=== PATIENT | male | born 1955 | race Caucasian/White ===

== ENCOUNTER 2017-06-28 18:21 | Emergency (ER) | payer MEDICARE, MEDICAID ==
[~2017-06-28] VITALS: Ht 177.8 cm; Wt 75.0 kg
[~2017-06-28 18:21] MED LIST: HYDR-569 PO; INDO50CA PO; OMEP-84 PO; TRAM50TA2 PO; UNABLE TO OBTAIN
[2017-06-28 19:12] VITALS: BP 155/86
[2017-06-28] MEDS ORDERED: normal saline 1000ML IV soln IVB ONE (19:50)
[2017-06-28 20:15] LABS: BASOPHILS % (AUTO) 0.7 % (0-1); EOSINOPHILS # (AUTO) 0.1 X10'3 (0-0.9); EOSINOPHILS % (AUTO) 2.4 % (0-6); HEMATOCRIT 48.9 % (42.0-52.0); HEMOGLOBIN 16.5 g/dl (14.0-17.9); LYMPHOCYTES # (AUTO) 2.1 X10'3 (1.1-4.8); LYMPHOCYTES % (AUTO) 45.4 % (21-51); MEAN CORPUSCULAR HEMOGLOBIN 34.5 PG (27.0-31.0); MEAN CORPUSCULAR HGB CONC 33.8 % (33.0-36.5); MEAN CORPUSCULAR VOLUME 102.1 FL (78-98); MEAN PLATELET VOLUME 8.1 FL (7.4-10.4); MONOCYTES # (AUTO) 0.3 X10'3 (0-0.9); MONOCYTES % (AUTO) 6.2 % (2-12); NEUTROPHILS # (AUTO) 2.1 X10'3 (1.8-7.7); NEUTROPHILS % (AUTO) 45.3 % (42-75); PLATELET COUNT 223 X10'3 (140-440); RED BLOOD COUNT 4.79 X10'6 (4.70-6.10); RED CELL DISTRIBUTION WIDTH 14.1 % (11.5-14.5); WHITE BLOOD COUNT 4.6 X10'3 (4.5-11.0)
[2017-06-28 20:19] LABS: CLARITY,URINE Clear (Clear); GLUCOSE, URINE Negative (Neg); KETONES,URINE Negative (Neg); LEUKOCYTE ESTERASE ,URINE Negative (Neg); NITRITES, URINE Negative (Neg); OCCULT BLOOD,URINE Negative (Neg); PROTEIN,URINE Negative (Neg); UROBILINOGEN,URINE 0.2 E.U/dL (0.2-1.0)
[2017-06-28 20:21] LABS: URINE AMPHETAMINE SCREEN NEGATIVE (Neg); URINE BARBITUATE SCREEN NEGATIVE (Neg); URINE BENZODIAZEPINES SCREEN NEGATIVE (Neg); URINE CANNABINOID SCREEN NEGATIVE (Neg); URINE COCAINE SCREEN NEGATIVE (Neg); URINE METHADONE SCREEN NEGATIVE (Neg); URINE OPIATE SCREEN NEGATIVE (Neg); URINE PHENCYCLIDINE SCREEN NEGATIVE (Neg)
[2017-06-28 20:26] LABS: COLOR,URINE STRAW (Yellow); UA COLLECTION TYPE CLN CATCH MIDSTREAM
[2017-06-28 20:26] LABS: PROTHROMBIN TIME 10.8 SECONDS (9.0-12.0)
[2017-06-28 20:30] LABS: ALANINE AMINOTRANSFERASE 34 U/L (12-78); ALBUMIN/GLOBULIN RATIO 1.1 (1.1-1.5); ALKALINE PHOSPHATASE 62 IU/L (46-116); ANION GAP 15 (8-16); ASPARTATE AMINO TRANSFERASE 31 U/L (10-37); BILIRUBIN,TOTAL 0.4 MG/DL (0.1-1.0); BLOOD UREA NITROGEN 8 MG/DL (7-18); BUN/CREATININE RATIO 12.1 (5.4-32.0); CALCIUM 8.5 MG/DL (8.5-10.1); CHLORIDE 106 MMOL/L (99-107); CREATININE 0.66 MG/DL (0.60-1.10); GLUCOSE 99 MG/DL (70-104); POTASSIUM 3.9 MMOL/L (3.5-5.1); SODIUM 147 MMOL/L (135-145); TOTAL CARBON DIOXIDE 26.1 MMOL/L (24-32); TOTAL PROTEIN 7.5 G/DL (6.4-8.2); eGFR > 90 ML/MIN
[2017-06-28 20:40] LABS: ETHANOL 0.298 GM/DL (0.0-0.010)
== END 2017-06-28 20:54 | disposition left against medical advice (07) ==
LOC: ER 18:22
DX: R51 Headache (principal); F10.129 Alcohol abuse with intoxication, unspecified; R55 Syncope and collapse; R26.89 Other abnormalities of gait and mobility; I10 Essential (primary) hypertension; G89.29 Other chronic pain; Z98.890 Other specified postprocedural states; Z88.0 Allergy status to penicillin; Z79.899 Other long term (current) drug therapy; W01.198A Fall on same level from slipping, tripping and stumbling with subsequent striking against other object, initial encounter; Y93.89 Activity, other specified; Y92.89 Other specified places as the place of occurrence of the external cause; Y99.9 Unspecified external cause status; Y90.9 Presence of alcohol in blood, level not specified
CPT/HCPCS: 36415; 70450; 71010; 80053; 80305; 80320; 81003; 82140; 84439; 84443; 84484; 85025; 85610; 93005; 96360; 99285; J7030

== ENCOUNTER 2017-09-13 10:32 | Emergency (ER) | payer MEDICARE, MEDICAID ==
[~2017-09-13] VITALS: Ht 177.8 cm; Wt 78.8 kg
[2017-09-13 10:42] VITALS: BP 152/92
[2017-09-13] MEDS ORDERED: HYDROcodone/acetaminophen 10/325mg tab PO ONE (11:30)
[2017-09-13] MEDS ORDERED: HYDR-3965 PO (12:14)
== END 2017-09-13 12:40 | disposition home or self-care (01) ==
LOC: ER 10:32
DX: S82.892A Other fracture of left lower leg, initial encounter for closed fracture (principal); I10 Essential (primary) hypertension; G89.29 Other chronic pain; Z88.0 Allergy status to penicillin; Z79.899 Other long term (current) drug therapy; X58.XXXA Exposure to other specified factors, initial encounter; Y93.89 Activity, other specified; Y92.89 Other specified places as the place of occurrence of the external cause; Y99.8 Other external cause status
CPT/HCPCS: 29515; 73610; 99284

== ENCOUNTER 2017-10-07 15:54 | Inpatient (IN) | payer MEDICARE, MEDICAID ==
[~2017-10-07] VITALS: Ht 177.8 cm; Wt 72.7 kg
[~2017-10-07 15:54] MED LIST changes: +HYDR-3965 PO
[2017-10-07] MEDS ORDERED: LORazepam 2 mg/ml vial IV ONE ×2 (16:00→16:50)
[2017-10-07] MEDS ORDERED: normal saline 1000ML IV soln IVB ONE (16:00)
[2017-10-07 16:10] LABS: BASOPHILS % (AUTO) 0.2 % (0-1); EOSINOPHILS # (AUTO) 0.1 X10'3 (0-0.9); EOSINOPHILS % (AUTO) 1.3 % (0-6); HEMATOCRIT 48.1 % (42.0-52.0); HEMOGLOBIN 16.4 g/dl (14.0-17.9); LYMPHOCYTES # (AUTO) 1.5 X10'3 (1.1-4.8); LYMPHOCYTES % (AUTO) 25.8 % (21-51); MEAN CORPUSCULAR HEMOGLOBIN 34.5 PG (27.0-31.0); MEAN CORPUSCULAR HGB CONC 34.1 % (33.0-36.5); MEAN CORPUSCULAR VOLUME 101.2 FL (78-98); MEAN PLATELET VOLUME 8.4 FL (7.4-10.4); MONOCYTES # (AUTO) 0.4 X10'3 (0-0.9); MONOCYTES % (AUTO) 6.5 % (2-12); NEUTROPHILS # (AUTO) 3.8 X10'3 (1.8-7.7); NEUTROPHILS % (AUTO) 66.2 % (42-75); PLATELET COUNT 133 X10'3 (140-440); RED BLOOD COUNT 4.76 X10'6 (4.70-6.10); RED CELL DISTRIBUTION WIDTH 14.8 % (11.5-14.5); WHITE BLOOD COUNT 5.7 X10'3 (4.5-11.0)
[2017-10-07 16:24] LABS: ALANINE AMINOTRANSFERASE 83 U/L (12-78); ALBUMIN 4.4 G/DL (3.4-5.0); ALBUMIN/GLOBULIN RATIO 1.2 (1.1-1.5); ALKALINE PHOSPHATASE 98 IU/L (46-116); ANION GAP 20 (8-16); ASPARTATE AMINO TRANSFERASE 124 U/L (10-37); BILIRUBIN,TOTAL 1.1 MG/DL (0.1-1.0); BLOOD UREA NITROGEN 10 MG/DL (7-18); BUN/CREATININE RATIO 8.8 (5.4-32.0); CALCIUM 8.8 MG/DL (8.5-10.1); CHLORIDE 101 MMOL/L (99-107); CREATININE 1.13 MG/DL (0.60-1.10); GLUCOSE 196 MG/DL (70-104); POTASSIUM 3.6 MMOL/L (3.5-5.1); SODIUM 140 MMOL/L (135-145); TOTAL CARBON DIOXIDE 18.7 MMOL/L (24-32); TOTAL PROTEIN 8.1 G/DL (6.4-8.2); eGFR 66 ML/MIN
[2017-10-07 16:25] LABS: ETHANOL < 0.010 GM/DL (0.0-0.010)
[2017-10-07 16:54] LABS: INR 1.1 INR; PARTIAL THROMBOPLASTIN TIME 21 SECONDS (22-32); PROTHROMBIN TIME 10.6 SECONDS (9.0-12.0)
[2017-10-07] MEDS ORDERED: potassium Cl 40MEQ/NS 500ml 500 ML IV PRN ×2 (17:10)
[2017-10-07] MEDS ORDERED: magnesium 2GM in 50ml NS 50 ML IV PRN (17:10)
[2017-10-07] MEDS: K and/or MAG REPLACEMENT MC SCH (17:10)
[2017-10-07] MEDS ORDERED: magnesium hydroxide 30ml (MOM) UD suspension PO PRN (17:10)
[2017-10-07] MEDS ORDERED: dextrose 50%-water 50ml dispensing syringe IV PRN (17:10)
[2017-10-07] MEDS ORDERED: mag hydrox/Alum hydrox/simeth 30ml oral suspension PO PRN (17:10)
[2017-10-07] MEDS ORDERED: haloperidol lactate 5mg/ml inj IM PRN (17:10)
[2017-10-07] MEDS ORDERED: folic acid inj. 2 MG, thiamine inj. 100 MG, MVI, adult No.4 with vit. K 10 ML in dextro... IV SCH ×4 (17:10)
[2017-10-07] MEDS ORDERED: haloperidol 5mg tablet PO PRN (17:10)
[2017-10-07] MEDS ORDERED: thiamine 100mg/ml 2ml inj. IV ONE (17:10)
[2017-10-07] MEDS ORDERED: magnesium 4gm in 100ml NS 100 ML IV PRN (17:10)
[2017-10-07] MEDS ORDERED: potassium Cl 20 mEq SR tablet PO PRN (17:10)
[2017-10-07 17:37] LABS: CLARITY,URINE CLEAR (Clear); COLOR,URINE YELLOW (Yellow); GLUCOSE, URINE NEGATIVE (Neg); KETONES,URINE 40 mg/dl (Neg); LEUKOCYTE ESTERASE ,URINE NEGATIVE (Neg); NITRITES, URINE NEGATIVE (Neg); OCCULT BLOOD,URINE NEGATIVE (Neg); PROTEIN,URINE 30 mg/dl (Neg)
[2017-10-07 17:43] LABS: URINE AMPHETAMINE SCREEN NEGATIVE (Neg); URINE BARBITUATE SCREEN NEGATIVE (Neg); URINE BENZODIAZEPINES SCREEN NEGATIVE (Neg); URINE CANNABINOID SCREEN NEGATIVE (Neg); URINE COCAINE SCREEN NEGATIVE (Neg); URINE METHADONE SCREEN NEGATIVE (Neg); URINE OPIATE SCREEN NEGATIVE (Neg); URINE PHENCYCLIDINE SCREEN NEGATIVE (Neg)
[2017-10-07 17:48] LABS: UA COLLECTION TYPE CLN CATCH MIDSTREAM
[2017-10-07 17:51] LABS: AMORPHOUS PHOSPHATES 2+; BACTERIA,URINE NONE SEEN /HPF (Neg); RBC,URINE NONE SEEN /HPF (0-2); SQUAMOUS EPITHELIAL CELL,UR NONE SEEN /LPF (FEW); WBC,URINE 0-4 /HPF (0-4)
[2017-10-07] MEDS: normal saline 1000ml 1,000 ML IV SCH ×2 (17:54→21:18)
[2017-10-07] MEDS ORDERED: LEVE500T PO (19:11)
[2017-10-07] MEDS ORDERED: SYN0.088T PO (19:11)
[2017-10-07] MEDS ORDERED: HYDR-3973 (19:13)
[2017-10-07] MEDS ORDERED: HYDR-3964 (19:13)
[2017-10-07] MEDS ORDERED: NAPR-996 (19:13)
[2017-10-07 20:25] VITALS: BP 152/98
[2017-10-07] MEDS ORDERED: HYDROcodone/acetaminophen 5mg/325mg tablet PO PRN (20:45)
[2017-10-07] MEDS ORDERED: levetiracetam 250mg tablet PO ONE (21:00)
[2017-10-07 22:00] VITALS: BP 151/90
[2017-10-08 06:00] VITALS: BP 128/81
[2017-10-08 07:26] LABS: BASOPHILS % (AUTO) 0.2 % (0-1); EOSINOPHILS % (AUTO) 0.2 % (0-6); HEMATOCRIT 42.3 % (42.0-52.0); HEMOGLOBIN 14.7 g/dl (14.0-17.9); MEAN CORPUSCULAR HGB CONC 34.7 % (33.0-36.5); MEAN CORPUSCULAR VOLUME 100.9 FL (78-98); MEAN PLATELET VOLUME 8.8 FL (7.4-10.4); MONOCYTES # (AUTO) 0.4 X10'3 (0-0.9); MONOCYTES % (AUTO) 3.4 % (2-12); NEUTROPHILS # (AUTO) 10.7 X10'3 (1.8-7.7); NEUTROPHILS % (AUTO) 88.2 % (42-75); PLATELET COUNT 107 X10'3 (140-440); RED BLOOD COUNT 4.19 X10'6 (4.70-6.10); RED CELL DISTRIBUTION WIDTH 14.4 % (11.5-14.5); WHITE BLOOD COUNT 12.2 X10'3 (4.5-11.0)
[2017-10-08 07:28] LABS: ALANINE AMINOTRANSFERASE 61 U/L (12-78); ALBUMIN 3.4 G/DL (3.4-5.0); ALKALINE PHOSPHATASE 74 IU/L (46-116); ANION GAP 13 (8-16); ASPARTATE AMINO TRANSFERASE 64 U/L (10-37); BILIRUBIN,TOTAL 1.3 MG/DL (0.1-1.0); BLOOD UREA NITROGEN 9 MG/DL (7-18); CALCIUM 8.1 MG/DL (8.5-10.1); CHLORIDE 102 MMOL/L (99-107); CREATININE 0.75 MG/DL (0.60-1.10); GLUCOSE 99 MG/DL (70-104); MAGNESIUM 1.7 MG/DL (1.5-2.4); POTASSIUM 3.8 MMOL/L (3.5-5.1); SODIUM 140 MMOL/L (135-145); TOTAL CARBON DIOXIDE 25.2 MMOL/L (24-32); TOTAL PROTEIN 6.7 G/DL (6.4-8.2); eGFR > 90 ML/MIN
[2017-10-08] MEDS: normal saline 1000ml 1,000 ML IV SCH ×2 (07:37→23:09)
[2017-10-08] MEDS: K and/or MAG REPLACEMENT MC SCH (08:00)
[2017-10-08] MEDS: thiamine 100mg tablet PO SCH (08:55)
[2017-10-08] MEDS: folic acid inj. 2 MG, MVI, adult No.4 with vit. K 10 ML in dextrose 5% water 500ml 500 ML IV SCH ×3 (08:55)
[2017-10-08] MEDS: levetiracetam 250mg tablet PO SCH ×2 (08:55→20:05)
[2017-10-08] MEDS: enoxaparin 40mg/0.4ml syringe SQ SCH (08:56)
[2017-10-08 10:00] VITALS: BP 153/91
[2017-10-08] MEDS ORDERED: pneumococcal 23-VAL P-sac vacc 25 mcg/0.5ml vial IMVAC ONE (10:00)
[2017-10-08] MEDS: LORazepam 2 mg/ml vial IV PRN ×5 (11:25→22:59)
[2017-10-08 18:00] VITALS: BP 127/86
[2017-10-08 22:00] VITALS: BP 133/87
[2017-10-09] MEDS: normal saline 1000ml 1,000 ML IV SCH ×3 (00:43→23:27)
[2017-10-09] MEDS: LORazepam 2 mg/ml vial IV PRN ×8 (02:22→20:59)
[2017-10-09 05:27] LABS: BASOPHILS % (AUTO) 0.6 % (0-1); EOSINOPHILS # (AUTO) 0.1 X10'3 (0-0.9); EOSINOPHILS % (AUTO) 1.5 % (0-6); HEMATOCRIT 44.3 % (42.0-52.0); HEMOGLOBIN 15.2 g/dl (14.0-17.9); LYMPHOCYTES # (AUTO) 1.4 X10'3 (1.1-4.8); LYMPHOCYTES % (AUTO) 20.3 % (21-51); MEAN CORPUSCULAR HEMOGLOBIN 34.7 PG (27.0-31.0); MEAN CORPUSCULAR HGB CONC 34.4 % (33.0-36.5); MEAN CORPUSCULAR VOLUME 100.9 FL (78-98); MEAN PLATELET VOLUME 8.6 FL (7.4-10.4); MONOCYTES # (AUTO) 1.1 X10'3 (0-0.9); MONOCYTES % (AUTO) 16.5 % (2-12); NEUTROPHILS # (AUTO) 4.2 X10'3 (1.8-7.7); NEUTROPHILS % (AUTO) 61.1 % (42-75); PLATELET COUNT 101 X10'3 (140-440); RED BLOOD COUNT 4.39 X10'6 (4.70-6.10); RED CELL DISTRIBUTION WIDTH 14.7 % (11.5-14.5); WHITE BLOOD COUNT 6.8 X10'3 (4.5-11.0)
[2017-10-09 06:19] LABS: ALANINE AMINOTRANSFERASE 97 U/L (12-78); ALBUMIN 3.4 G/DL (3.4-5.0); ALBUMIN/GLOBULIN RATIO 0.9 (1.1-1.5); ALKALINE PHOSPHATASE 76 IU/L (46-116); ANION GAP 12 (8-16); ASPARTATE AMINO TRANSFERASE 127 U/L (10-37); BILIRUBIN,TOTAL 1.4 MG/DL (0.1-1.0); BLOOD UREA NITROGEN 9 MG/DL (7-18); BUN/CREATININE RATIO 10.1 (5.4-32.0); CHLORIDE 106 MMOL/L (99-107); CREATININE 0.89 MG/DL (0.60-1.10); GLUCOSE 105 MG/DL (70-104); MAGNESIUM 1.4 MG/DL (1.5-2.4); POTASSIUM 3.7 MMOL/L (3.5-5.1); SODIUM 143 MMOL/L (135-145); TOTAL CARBON DIOXIDE 24.9 MMOL/L (24-32); TOTAL PROTEIN 7.2 G/DL (6.4-8.2); eGFR 87 ML/MIN
[2017-10-09] MEDS: K and/or MAG REPLACEMENT MC SCH (07:09)
[2017-10-09] MEDS: enoxaparin 40mg/0.4ml syringe SQ SCH (07:17)
[2017-10-09] MEDS: folic acid inj. 2 MG, MVI, adult No.4 with vit. K 10 ML in dextrose 5% water 500ml 500 ML IV SCH ×3 (07:17)
[2017-10-09] MEDS: levetiracetam 250mg tablet PO SCH ×2 (07:17→20:59)
[2017-10-09] MEDS: magnesium Cl slow-release 64mg tablet PO PRN ×2 (07:19→23:27)
[2017-10-09] MEDS: thiamine 100mg tablet PO SCH (07:19)
[2017-10-09 10:00] VITALS: BP 150/99
[2017-10-09] MEDS: haloperidol lactate 5mg/ml inj IM PRN ×2 (14:48→17:38)
[2017-10-09] MEDS ORDERED: LORazepam 2 mg/ml vial IV PRN (17:10)
[2017-10-09] MEDS ORDERED: LORazepam 1 MG tablet PO PRN (17:10)
[2017-10-09 18:00] VITALS: BP 128/84
[2017-10-09 22:00] VITALS: BP 128/43
[2017-10-10] MEDS: haloperidol lactate 5mg/ml inj IM PRN ×2 (03:06→05:48)
[2017-10-10 05:53] LABS: BASOPHILS % (AUTO) 0.6 % (0-1); EOSINOPHILS # (AUTO) 0.1 X10'3 (0-0.9); EOSINOPHILS % (AUTO) 2.2 % (0-6); HEMATOCRIT 40.9 % (42.0-52.0); HEMOGLOBIN 14.5 g/dl (14.0-17.9); LYMPHOCYTES # (AUTO) 0.8 X10'3 (1.1-4.8); LYMPHOCYTES % (AUTO) 16.3 % (21-51); MEAN CORPUSCULAR HEMOGLOBIN 35.2 PG (27.0-31.0); MEAN CORPUSCULAR HGB CONC 35.5 % (33.0-36.5); MEAN CORPUSCULAR VOLUME 99.1 FL (78-98); MEAN PLATELET VOLUME 8.4 FL (7.4-10.4); MONOCYTES # (AUTO) 0.5 X10'3 (0-0.9); MONOCYTES % (AUTO) 9.7 % (2-12); NEUTROPHILS # (AUTO) 3.4 X10'3 (1.8-7.7); NEUTROPHILS % (AUTO) 71.2 % (42-75); PLATELET COUNT 96 X10'3 (140-440); RED BLOOD COUNT 4.13 X10'6 (4.70-6.10); RED CELL DISTRIBUTION WIDTH 14.3 % (11.5-14.5); WHITE BLOOD COUNT 4.7 X10'3 (4.5-11.0)
[2017-10-10 06:00] VITALS: BP 130/89
[2017-10-10 06:28] LABS: ALANINE AMINOTRANSFERASE 100 U/L (12-78); ALBUMIN 3.2 G/DL (3.4-5.0); ALBUMIN/GLOBULIN RATIO 0.9 (1.1-1.5); ALKALINE PHOSPHATASE 71 IU/L (46-116); ANION GAP 10 (8-16); ASPARTATE AMINO TRANSFERASE 120 U/L (10-37); BILIRUBIN,TOTAL 1.2 MG/DL (0.1-1.0); BLOOD UREA NITROGEN 7 MG/DL (7-18); CALCIUM 8.5 MG/DL (8.5-10.1); CHLORIDE 105 MMOL/L (99-107); GLUCOSE 96 MG/DL (70-104); MAGNESIUM 1.3 MG/DL (1.5-2.4); SODIUM 142 MMOL/L (135-145); TOTAL CARBON DIOXIDE 27.1 MMOL/L (24-32); TOTAL PROTEIN 6.8 G/DL (6.4-8.2); eGFR > 90 ML/MIN
[2017-10-10] MEDS: levetiracetam 250mg tablet PO SCH ×2 (08:09→20:26)
[2017-10-10] MEDS: thiamine 100mg tablet PO SCH (08:09)
[2017-10-10] MEDS: folic acid inj. 2 MG, MVI, adult No.4 with vit. K 10 ML in dextrose 5% water 500ml 500 ML IV SCH ×3 (08:09)
[2017-10-10] MEDS: K and/or MAG REPLACEMENT MC SCH (08:10)
[2017-10-10] MEDS: potassium Cl 20 mEq SR tablet PO PRN ×2 (08:10→13:21)
[2017-10-10 10:00] VITALS: BP 124/85
[2017-10-10] MEDS: LORazepam 2 mg/ml vial IV PRN ×2 (11:47→17:34)
[2017-10-10] MEDS: normal saline 1000ml 1,000 ML IV SCH (14:53)
[2017-10-10] MEDS ORDERED: magnesium 2GM in 50ml NS 50 ML IV PRN (17:15)
[2017-10-10] MEDS ORDERED: potassium Cl 20 mEq SR tablet PO PRN ×2 (17:15)
[2017-10-10] MEDS ORDERED: magnesium Cl slow-release 64mg tablet PO PRN (17:15)
[2017-10-10] MEDS ORDERED: magnesium 4gm in 100ml NS 100 ML IV PRN (17:15)
[2017-10-10] MEDS ORDERED: potassium Cl 40MEQ/NS 500ml 500 ML IV PRN ×2 (17:15)
[2017-10-10 18:00] VITALS: BP 129/90
[2017-10-10 22:00] VITALS: BP 142/95
[2017-10-11] MEDS: normal saline 1000ml 1,000 ML IV SCH ×3 (01:10→21:09)
[2017-10-11] MEDS: haloperidol lactate 5mg/ml inj IM PRN (03:31)
[2017-10-11 06:15] LABS: ALANINE AMINOTRANSFERASE 84 U/L (12-78); ALBUMIN 3.1 G/DL (3.4-5.0); ALBUMIN/GLOBULIN RATIO 0.8 (1.1-1.5); ALKALINE PHOSPHATASE 72 IU/L (46-116); ANION GAP 11 (8-16); ASPARTATE AMINO TRANSFERASE 74 U/L (10-37); BILIRUBIN,TOTAL 1.4 MG/DL (0.1-1.0); BLOOD UREA NITROGEN 7 MG/DL (7-18); BUN/CREATININE RATIO 9.9 (5.4-32.0); CALCIUM 8.4 MG/DL (8.5-10.1); CHLORIDE 105 MMOL/L (99-107); CREATININE 0.71 MG/DL (0.60-1.10); GLUCOSE 95 MG/DL (70-104); MAGNESIUM 1.1 MG/DL (1.5-2.4); POTASSIUM 3.6 MMOL/L (3.5-5.1); SODIUM 139 MMOL/L (135-145); TOTAL CARBON DIOXIDE 22.8 MMOL/L (24-32); TOTAL PROTEIN 6.8 G/DL (6.4-8.2); eGFR > 90 ML/MIN
[2017-10-11 06:22] LABS: HEMOGLOBIN 15.2 g/dl (14.0-17.9); MEAN CORPUSCULAR HEMOGLOBIN 35.1 PG (27.0-31.0); MEAN CORPUSCULAR HGB CONC 35.4 % (33.0-36.5); MEAN CORPUSCULAR VOLUME 99.1 FL (78-98); PLATELET COUNT 106 X10'3 (140-440); RED BLOOD COUNT 4.34 X10'6 (4.70-6.10); WHITE BLOOD COUNT 6.7 X10'3 (4.5-11.0)
[2017-10-11 06:23] LABS: BASOPHILS % (AUTO) 0.1 % (0-1); EOSINOPHILS # (AUTO) 0.1 X10'3 (0-0.9); EOSINOPHILS % (AUTO) 1.3 % (0-6); LYMPHOCYTES % (AUTO) 15.3 % (21-51); MEAN PLATELET VOLUME 9.1 FL (7.4-10.4); MONOCYTES # (AUTO) 0.7 X10'3 (0-0.9); MONOCYTES % (AUTO) 10.8 % (2-12); NEUTROPHILS # (AUTO) 4.9 X10'3 (1.8-7.7); NEUTROPHILS % (AUTO) 72.5 % (42-75)
[2017-10-11] MEDS: thiamine 100mg tablet PO SCH (07:11)
[2017-10-11] MEDS: levetiracetam 250mg tablet PO SCH ×2 (07:11→21:08)
[2017-10-11] MEDS: K and/or MAG REPLACEMENT MC SCH (07:11)
[2017-10-11] MEDS: folic acid inj. 2 MG, MVI, adult No.4 with vit. K 10 ML in dextrose 5% water 500ml 500 ML IV SCH ×3 (07:11)
[2017-10-11 10:00] VITALS: BP 110/76
[2017-10-11] MEDS: LORazepam 2 mg/ml vial IV PRN ×3 (15:11→23:04)
[2017-10-11] MEDS: ondansetron/PF 4mg/2ml inj IV PRN (16:37)
[2017-10-11] MEDS ORDERED: hydrALAZINE 20mg/ml inj. IV PRN (16:55)
[2017-10-11] MEDS ORDERED: acetaminophen 120MG suppository, rectal RC ONE (16:55)
[2017-10-11] MEDS ORDERED: LORazepam 1 MG tablet PO PRN (17:10)
[2017-10-11] MEDS ORDERED: acetaminophen 650mg rectal suppository RC ONE (17:10)
[2017-10-11] MEDS ORDERED: LORazepam 2 mg/ml vial IV PRN (17:10)
[2017-10-11 17:23] LABS: COLOR,URINE YELLOW (Yellow); GLUCOSE, URINE NEGATIVE (Neg); KETONES,URINE NEGATIVE (Neg); LEUKOCYTE ESTERASE ,URINE SMALL (Neg); NITRITES, URINE NEGATIVE (Neg); OCCULT BLOOD,URINE LARGE (Neg); PROTEIN,URINE TRACE mg/dl (Neg)
[2017-10-11 17:24] LABS: UA COLLECTION TYPE NON-SPECIFIED
[2017-10-11 17:45] LABS: MUCUS STRANDS FEW /LPF (Neg); RBC,URINE 50-100 /HPF (0-2); SQUAMOUS EPITHELIAL CELL,UR FEW /LPF (FEW)
[2017-10-11 17:46] LABS: BACTERIA,URINE FEW /HPF (Neg)
[2017-10-11 17:49] LABS: CLARITY,URINE SLIGHTLY CLOUDY (Clear)
[2017-10-11 18:00] VITALS: BP 159/108
[2017-10-11] MEDS ORDERED: levoFLOXACIN-Levaquin 500mg/D5 100 ML IV SCH (20:00)
[2017-10-11 22:00] VITALS: BP 133/91
[2017-10-12] MEDS: LORazepam 2 mg/ml vial IV PRN ×4 (05:16→20:04)
[2017-10-12 06:00] VITALS: BP 121/82
[2017-10-12 06:33] LABS: BASOPHILS % (AUTO) 0.3 % (0-1); EOSINOPHILS # (AUTO) 0.1 X10'3 (0-0.9); EOSINOPHILS % (AUTO) 0.8 % (0-6); HEMATOCRIT 42.3 % (42.0-52.0); LYMPHOCYTES # (AUTO) 1.3 X10'3 (1.1-4.8); LYMPHOCYTES % (AUTO) 15.5 % (21-51); MEAN CORPUSCULAR HGB CONC 35.5 % (33.0-36.5); MEAN CORPUSCULAR VOLUME 98.6 FL (78-98); MONOCYTES # (AUTO) 1.1 X10'3 (0-0.9); MONOCYTES % (AUTO) 12.8 % (2-12); NEUTROPHILS # (AUTO) 5.9 X10'3 (1.8-7.7); NEUTROPHILS % (AUTO) 70.6 % (42-75); PLATELET COUNT 109 X10'3 (140-440); RED BLOOD COUNT 4.29 X10'6 (4.70-6.10); RED CELL DISTRIBUTION WIDTH 14.1 % (11.5-14.5); WHITE BLOOD COUNT 8.4 X10'3 (4.5-11.0)
[2017-10-12 06:54] LABS: ALANINE AMINOTRANSFERASE 68 U/L (12-78); ALBUMIN/GLOBULIN RATIO 0.8 (1.1-1.5); ALKALINE PHOSPHATASE 73 IU/L (46-116); ANION GAP 13 (8-16); ASPARTATE AMINO TRANSFERASE 55 U/L (10-37); BILIRUBIN,TOTAL 1.5 MG/DL (0.1-1.0); BLOOD UREA NITROGEN 10 MG/DL (7-18); BUN/CREATININE RATIO 12.3 (5.4-32.0); CALCIUM 8.3 MG/DL (8.5-10.1); CHLORIDE 101 MMOL/L (99-107); CREATININE 0.81 MG/DL (0.60-1.10); GLUCOSE 89 MG/DL (70-104); MAGNESIUM 1.2 MG/DL (1.5-2.4); SODIUM 136 MMOL/L (135-145); TOTAL CARBON DIOXIDE 22.1 MMOL/L (24-32); TOTAL PROTEIN 6.9 G/DL (6.4-8.2); eGFR > 90 ML/MIN
[2017-10-12] MEDS: K and/or MAG REPLACEMENT MC SCH (07:20)
[2017-10-12] MEDS: thiamine 100mg tablet PO SCH (07:26)
[2017-10-12] MEDS: levetiracetam 250mg tablet PO SCH ×2 (07:26→20:04)
[2017-10-12] MEDS ORDERED: magnesium 4gm in 100ml NS 100 ML IV ONE (08:15)
[2017-10-12 10:00] VITALS: BP 114/74
[2017-10-12] MEDS: folic acid inj. 2 MG, MVI, adult No.4 with vit. K 10 ML in dextrose 5% water 500ml 500 ML IV SCH ×3 (10:44)
[2017-10-12] MEDS ORDERED: iohexol 300mg/ml 100ml inj. ONE (12:52)
[2017-10-12] MEDS: acetaminophen 325mg tablet PO PRN (16:28)
[2017-10-12] MEDS: levoFLOXACIN 500mg tablet PO SCH (16:43)
[2017-10-12] MEDS: normal saline 1000ml 1,000 ML IV SCH ×2 (17:09→20:05)
[2017-10-12 18:00] VITALS: BP 126/80
[2017-10-12 22:00] VITALS: BP 141/88
[2017-10-13] MEDS: normal saline 1000ml 1,000 ML IV SCH ×3 (03:09→13:09)
[2017-10-13] MEDS: LORazepam 2 mg/ml vial IV PRN ×4 (05:11→23:22)
[2017-10-13] MEDS: acetaminophen 325mg tablet PO PRN ×2 (05:12→21:32)
[2017-10-13 06:00] VITALS: BP 157/83
[2017-10-13 06:57] LABS: MAGNESIUM 1.5 MG/DL (1.5-2.4); POTASSIUM 3.6 MMOL/L (3.5-5.1)
[2017-10-13] MEDS: thiamine 100mg tablet PO SCH (07:47)
[2017-10-13] MEDS: levetiracetam 250mg tablet PO SCH ×2 (07:47→21:10)
[2017-10-13] MEDS: folic acid inj. 2 MG, MVI, adult No.4 with vit. K 10 ML in dextrose 5% water 500ml 500 ML IV SCH ×3 (07:47)
[2017-10-13] MEDS: K and/or MAG REPLACEMENT MC SCH (08:00)
[2017-10-13] MEDS ORDERED: magnesium 2GM in 50ml NS 50 ML IV ONE (09:00)
[2017-10-13 10:00] VITALS: BP 124/73
[2017-10-13] MEDS: levoFLOXACIN 500mg tablet PO SCH (11:00)
[2017-10-13 11:08] LABS: BASOPHILS % (AUTO) 0.2 % (0-1); EOSINOPHILS % (AUTO) 0.6 % (0-6); HEMATOCRIT 39.9 % (42.0-52.0); LYMPHOCYTES # (AUTO) 1.2 X10'3 (1.1-4.8); LYMPHOCYTES % (AUTO) 15.2 % (21-51); MEAN CORPUSCULAR HEMOGLOBIN 34.9 PG (27.0-31.0); MEAN CORPUSCULAR HGB CONC 35.2 % (33.0-36.5); MEAN CORPUSCULAR VOLUME 99.2 FL (78-98); MEAN PLATELET VOLUME 9.4 FL (7.4-10.4); MONOCYTES # (AUTO) 1.3 X10'3 (0-0.9); MONOCYTES % (AUTO) 16.1 % (2-12); NEUTROPHILS # (AUTO) 5.5 X10'3 (1.8-7.7); NEUTROPHILS % (AUTO) 67.9 % (42-75); PLATELET COUNT 109 X10'3 (140-440); RED BLOOD COUNT 4.02 X10'6 (4.70-6.10); RED CELL DISTRIBUTION WIDTH 14.1 % (11.5-14.5); WHITE BLOOD COUNT 8.2 X10'3 (4.5-11.0)
[2017-10-13 17:23] LABS: CLARITY,URINE SLIGHTLY CLOUDY (Clear); COLOR,URINE YELLOW (Yellow); GLUCOSE, URINE NEGATIVE (Neg); KETONES,URINE TRACE mg/dl (Neg); LEUKOCYTE ESTERASE ,URINE NEGATIVE (Neg); NITRITES, URINE NEGATIVE (Neg); OCCULT BLOOD,URINE TRACE-INTACT (Neg); PH,URINE 5.5 (4.8-8.0); PROTEIN,URINE NEGATIVE (Neg)
[2017-10-13 17:29] LABS: UA COLLECTION TYPE NON-SPECIFIED
[2017-10-13 17:30] LABS: BACTERIA,URINE 1+ /HPF (Neg); MUCUS STRANDS MODERATE /LPF (Neg); RBC,URINE 0-2 /HPF (0-2); SQUAMOUS EPITHELIAL CELL,UR FEW /LPF (FEW); WBC,URINE 20-30 /HPF (0-4)
[2017-10-13 18:00] VITALS: BP_SYST 124; BP_SYST 139; BP_DIAS 73; BP_DIAS 78
[2017-10-13 22:00] VITALS: BP 137/94
[2017-10-13] MEDS ORDERED: LORazepam 2 mg/ml vial IV PRN (22:00)
[2017-10-14] MEDS: ondansetron/PF 4mg/2ml inj IV PRN (00:30)
[2017-10-14] MEDS: normal saline 1000ml 1,000 ML IV SCH ×3 (00:32→22:05)
[2017-10-14] MEDS: LORazepam 2 mg/ml vial IV PRN ×3 (02:12→13:50)
[2017-10-14 06:44] LABS: ALANINE AMINOTRANSFERASE 39 U/L (12-78); ALBUMIN 2.6 G/DL (3.4-5.0); ALBUMIN/GLOBULIN RATIO 0.8 (1.1-1.5); ALKALINE PHOSPHATASE 64 IU/L (46-116); ANION GAP 10 (8-16); ASPARTATE AMINO TRANSFERASE 21 U/L (10-37); BILIRUBIN,TOTAL 1.1 MG/DL (0.1-1.0); BLOOD UREA NITROGEN 10 MG/DL (7-18); BUN/CREATININE RATIO 13.3 (5.4-32.0); CALCIUM 8.2 MG/DL (8.5-10.1); CHLORIDE 99 MMOL/L (99-107); CREATININE 0.75 MG/DL (0.60-1.10); GLUCOSE 105 MG/DL (70-104); MAGNESIUM 1.3 MG/DL (1.5-2.4); POTASSIUM 3.8 MMOL/L (3.5-5.1); SODIUM 133 MMOL/L (135-145); TOTAL CARBON DIOXIDE 23.8 MMOL/L (24-32); eGFR > 90 ML/MIN
[2017-10-14 07:00] VITALS: BP 139/86
[2017-10-14] MEDS: K and/or MAG REPLACEMENT MC SCH (08:00)
[2017-10-14] MEDS: levetiracetam 250mg tablet PO SCH ×2 (09:21→19:16)
[2017-10-14] MEDS: thiamine 100mg tablet PO SCH (09:22)
[2017-10-14] MEDS: folic acid 1mg tablet PO SCH (09:22)
[2017-10-14] MEDS: multivitamins, therapeutics tablet PO SCH (09:22)
[2017-10-14] MEDS ORDERED: potassium Cl 20 mEq SR tablet PO PRN ×2 (09:45)
[2017-10-14] MEDS ORDERED: magnesium 4gm in 100ml NS 100 ML IV PRN (09:45)
[2017-10-14] MEDS ORDERED: potassium Cl 40MEQ/NS 500ml 500 ML IV PRN ×2 (09:45)
[2017-10-14] MEDS ORDERED: magnesium 2GM in 50ml NS 50 ML IV PRN (09:45)
[2017-10-14 10:00] VITALS: BP 122/82
[2017-10-14] MEDS: magnesium Cl slow-release 64mg tablet PO PRN (10:12)
[2017-10-14] MEDS: levoFLOXACIN 500mg tablet PO SCH (10:12)
[2017-10-14] MEDS: nitroGLYCERIN 0.4mg SUBLingual tab SL PRN ×3 (10:28→10:42)
[2017-10-14] MEDS: acetaminophen 325mg tablet PO PRN (17:52)
[2017-10-14] MEDS: HYDROcodone/acetaminophen 10/325mg tab PO PRN (17:58)
[2017-10-14 18:00] VITALS: BP 137/86
[2017-10-14] MEDS: furosemide 20 MG/2 ML vial IV SCH (19:16)
[2017-10-14] MEDS: propranolol 10mg tablet PO SCH (19:16)
[2017-10-14] MEDS: pantoprazole 40mg Tablet.DR PO SCH (19:16)
[2017-10-14] MEDS: clindamycin 150mg capsule PO SCH (21:44)
[2017-10-14 22:00] VITALS: BP 146/84
[2017-10-15] MEDS: clindamycin 150mg capsule PO SCH ×4 (02:18→20:55)
[2017-10-15] MEDS: HYDROcodone/acetaminophen 10/325mg tab PO PRN ×3 (02:18→17:28)
[2017-10-15 06:00] VITALS: BP 114/73
[2017-10-15 07:58] LABS: ALANINE AMINOTRANSFERASE 28 U/L (12-78); ALBUMIN 2.3 G/DL (3.4-5.0); ALBUMIN/GLOBULIN RATIO 0.7 (1.1-1.5); ALKALINE PHOSPHATASE 50 IU/L (46-116); ANION GAP 8 (8-16); ASPARTATE AMINO TRANSFERASE 16 U/L (10-37); BILIRUBIN,TOTAL 1.1 MG/DL (0.1-1.0); BLOOD UREA NITROGEN 13 MG/DL (7-18); BUN/CREATININE RATIO 16.5 (5.4-32.0); CALCIUM 8.3 MG/DL (8.5-10.1); CHLORIDE 101 MMOL/L (99-107); CREATININE 0.79 MG/DL (0.60-1.10); GLUCOSE 99 MG/DL (70-104); MAGNESIUM 1.4 MG/DL (1.5-2.4); POTASSIUM 3.7 MMOL/L (3.5-5.1); SODIUM 135 MMOL/L (135-145); TOTAL CARBON DIOXIDE 25.8 MMOL/L (24-32); TOTAL PROTEIN 5.7 G/DL (6.4-8.2); eGFR > 90 ML/MIN
[2017-10-15] MEDS: K and/or MAG REPLACEMENT MC SCH (08:00)
[2017-10-15] MEDS: levetiracetam 250mg tablet PO SCH ×2 (09:05→20:49)
[2017-10-15] MEDS: furosemide 20 MG/2 ML vial IV SCH ×2 (09:05→20:48)
[2017-10-15] MEDS: multivitamins, therapeutics tablet PO SCH (09:05)
[2017-10-15] MEDS: propranolol 10mg tablet PO SCH ×2 (09:05→20:49)
[2017-10-15] MEDS: thiamine 100mg tablet PO SCH (09:05)
[2017-10-15] MEDS: pantoprazole 40mg Tablet.DR PO SCH ×2 (09:05→20:48)
[2017-10-15] MEDS: folic acid 1mg tablet PO SCH (09:05)
[2017-10-15] MEDS ORDERED: benzonatate 100mg capsule PO PRN (09:25)
[2017-10-15] MEDS: magnesium Cl slow-release 64mg tablet PO PRN (09:28)
[2017-10-15 10:00] VITALS: BP 116/77
[2017-10-15] MEDS: normal saline 1000ml 1,000 ML IV SCH (17:26)
[2017-10-15 18:00] VITALS: BP 137/84
[2017-10-15 22:00] VITALS: BP 109/63
[2017-10-16] MEDS: normal saline 1000ml 1,000 ML IV SCH (00:45)
[2017-10-16] MEDS: clindamycin 150mg capsule PO SCH ×3 (03:38→13:51)
[2017-10-16] MEDS: HYDROcodone/acetaminophen 10/325mg tab PO PRN ×2 (04:23→13:52)
[2017-10-16 06:00] VITALS: BP 118/70
[2017-10-16 06:29] LABS: ALANINE AMINOTRANSFERASE 36 U/L (12-78); ALBUMIN 2.4 G/DL (3.4-5.0); ALBUMIN/GLOBULIN RATIO 0.7 (1.1-1.5); ALKALINE PHOSPHATASE 109 IU/L (46-116); ANION GAP 10 (8-16); ASPARTATE AMINO TRANSFERASE 29 U/L (10-37); BILIRUBIN,TOTAL 0.9 MG/DL (0.1-1.0); BLOOD UREA NITROGEN 14 MG/DL (7-18); BUN/CREATININE RATIO 15.9 (5.4-32.0); CALCIUM 8.4 MG/DL (8.5-10.1); CHLORIDE 102 MMOL/L (99-107); CREATININE 0.88 MG/DL (0.60-1.10); GLUCOSE 89 MG/DL (70-104); MAGNESIUM 1.3 MG/DL (1.5-2.4); POTASSIUM 3.3 MMOL/L (3.5-5.1); SODIUM 138 MMOL/L (135-145); TOTAL CARBON DIOXIDE 25.8 MMOL/L (24-32); eGFR 88 ML/MIN
[2017-10-16] MEDS: K and/or MAG REPLACEMENT MC SCH (08:00)
[2017-10-16] MEDS: furosemide 20 MG/2 ML vial IV SCH (08:06)
[2017-10-16] MEDS: propranolol 10mg tablet PO SCH (08:07)
[2017-10-16] MEDS: folic acid 1mg tablet PO SCH (08:07)
[2017-10-16] MEDS: levetiracetam 250mg tablet PO SCH (08:07)
[2017-10-16] MEDS: multivitamins, therapeutics tablet PO SCH (08:07)
[2017-10-16] MEDS: pantoprazole 40mg Tablet.DR PO SCH (08:07)
[2017-10-16] MEDS: thiamine 100mg tablet PO SCH (08:07)
[2017-10-16] MEDS: magnesium Cl slow-release 64mg tablet PO PRN (09:11)
[2017-10-16 10:00] VITALS: BP 106/61
[2017-10-16] MEDS ORDERED: THI100T PO (13:19)
[2017-10-16] MEDS ORDERED: FOLI1TAB16 PO (13:19)
[2017-10-16] MEDS ORDERED: MULT-1179 PO (13:19)
[2017-10-16] MEDS ORDERED: lactobacillus rhamnosus 10,000 MMU CELLS/CAPSULE PO SCH (20:00)
== END 2017-10-16 16:15 | DRG 177 ==
LOC: ER 15:54 → ED HOLD 17:09 → EDBEDREQTM 19:23 → ORTHO 4S 20:07
PROVIDERS: ADMIT Family Medicine; ATTEND Family Medicine
PROC: BW211ZZ Computerized Tomography (CT Scan) of Abdomen and Pelvis using Low Osmolar Contrast (ICD-10-PCS; principal; 2017-10-12)
DX: J69.0 Pneumonitis due to inhalation of food and vomit (principal); G92 Toxic encephalopathy; F10.221 Alcohol dependence with intoxication delirium; N17.9 Acute kidney failure, unspecified; F10.231 Alcohol dependence with withdrawal delirium; D69.6 Thrombocytopenia, unspecified; G40.909 Epilepsy, unspecified, not intractable, without status epilepticus; E03.9 Hypothyroidism, unspecified; Y90.0 Blood alcohol level of less than 20 mg/100 ml; R74.0 Nonspecific elevation of levels of transaminase and lactic acid dehydrogenase [LDH]; R31.9 Hematuria, unspecified; I10 Essential (primary) hypertension; K70.10 Alcoholic hepatitis without ascites; G89.29 Other chronic pain; F17.220 Nicotine dependence, chewing tobacco, uncomplicated; Z88.0 Allergy status to penicillin; Z23 Encounter for immunization
CPT/HCPCS: 36415; 70450; 71045; 73610; 74177; 76700; 80053; 80177; 80305; 80320; 81001; 82948; 83605; 83735; 84132; 84443; 84484; 85025; 85610; 85730; 87040; 87070; 87088; 92616; 93005; 93306; 96361; 96374; 97110; 97116; 97161; 97530; 99285; A4310; A4315; A4353; A6212; A6213; A6258; J0360; J1630; J1650; J1940; J1956; J2060; J2405; J3411; J3475; J3480; J3490; J7030; J7060; Q9967

== ENCOUNTER 2018-01-05 07:27 | Emergency (ER) | payer MEDICARE, MEDICAID ==
[~2018-01-05] VITALS: Ht 177.8 cm; Wt 72.7 kg
[~2018-01-05 07:27] MED LIST changes: +FOLI1TAB16 PO; +HYDR-3964; -HYDR-3965 PO; -HYDR-569 PO; -INDO50CA PO; +LEVE500T PO; +MULT-1179 PO; +SYN0.088T PO; +THI100T PO; -TRAM50TA2 PO; -UNABLE TO OBTAIN
[2018-01-05] MEDS ORDERED: phenobarbital inj 260 MG in normal saline 100ml IV soln 99 ML IV STA (07:29)
[2018-01-05] MEDS ORDERED: thiamine inj. 100 MG in normal saline 100ml IV soln 99 ML IV ONE (07:30)
[2018-01-05] MEDS ORDERED: ondansetron/PF 4mg/2ml inj IV ONE (07:30)
[2018-01-05] MEDS ORDERED: normal saline 1000ML IV soln IVB ONE (07:30)
[2018-01-05] MEDS ORDERED: LORazepam 2 mg/ml vial ONE (07:30)
[2018-01-05 07:53] LABS: BASOPHILS % (AUTO) 0.3 % (0-1); EOSINOPHILS # (AUTO) 0.1 X10'3 (0-0.9); EOSINOPHILS % (AUTO) 1.2 % (0-6); HEMOGLOBIN 15.8 g/dl (14.0-17.9); LYMPHOCYTES # (AUTO) 3.3 X10'3 (1.1-4.8); LYMPHOCYTES % (AUTO) 48.9 % (21-51); MEAN CORPUSCULAR HEMOGLOBIN 32.1 PG (27.0-31.0); MEAN CORPUSCULAR HGB CONC 33.6 % (33.0-36.5); MEAN CORPUSCULAR VOLUME 95.4 FL (78-98); MEAN PLATELET VOLUME 8.7 FL (7.4-10.4); MONOCYTES # (AUTO) 0.7 X10'3 (0-0.9); NEUTROPHILS # (AUTO) 2.6 X10'3 (1.8-7.7); NEUTROPHILS % (AUTO) 38.6 % (42-75); PLATELET COUNT 146 X10'3 (140-440); RED BLOOD COUNT 4.93 X10'6 (4.70-6.10); RED CELL DISTRIBUTION WIDTH 14.9 % (11.5-14.5); WHITE BLOOD COUNT 6.7 X10'3 (4.5-11.0)
[2018-01-05 07:58] LABS: ALANINE AMINOTRANSFERASE 15 U/L (12-78); ALBUMIN 4.5 G/DL (3.4-5.0); ALBUMIN/GLOBULIN RATIO 1.2 (1.1-1.5); ALKALINE PHOSPHATASE 86 IU/L (46-116); ANION GAP 25 (8-16); ASPARTATE AMINO TRANSFERASE 15 U/L (10-37); BILIRUBIN,TOTAL 1.1 MG/DL (0.1-1.0); BLOOD UREA NITROGEN 13 MG/DL (7-18); BUN/CREATININE RATIO 12.6 (5.4-32.0); CALCIUM 9.1 MG/DL (8.5-10.1); CHLORIDE 103 MMOL/L (99-107); CREATININE 1.03 MG/DL (0.60-1.10); ETHANOL < 0.010 GM/DL (0.0-0.010); GLUCOSE 170 MG/DL (70-104); POTASSIUM 3.4 MMOL/L (3.5-5.1); SODIUM 147 MMOL/L (135-145); TOTAL CARBON DIOXIDE 19.5 MMOL/L (24-32); TOTAL PROTEIN 8.4 G/DL (6.4-8.2); eGFR 73 ML/MIN
[2018-01-05] MEDS: magnesium/D5W IVPB 100 ML IV SCH ×2 (08:20→09:22)
[2018-01-05 08:51] LABS: ABG BASE EXCESS -1.7 mmol/L (-2.0-3.0); ABG HCO3 22.5 mmol/L (22.0-26.0); ABG OXYGEN SATURATION 86.9 % (95-98); ABG PCO2 (T) 36.8 mmHg (35.0-48.0); ABG PH (T) 7.405 (7.350-7.450); ABG PO2 (T) 61.5 mmHg (83-108); ALLEN'S TEST Positive; FCOHb 0.9 % (0.5-1.5); FLOW 6 L/min; FMetHb 0.2 % (0.3-1.12); FO2Hb 85.9 % (94-100); TOTAL HEMOGLOBIN 14.3 G/dl (14.0-18.0)
[2018-01-05 10:52] LABS: URINE AMPHETAMINE SCREEN NEGATIVE (Neg); URINE BARBITUATE SCREEN POSITIVE (Neg); URINE BENZODIAZEPINES SCREEN NEGATIVE (Neg); URINE CANNABINOID SCREEN NEGATIVE (Neg); URINE COCAINE SCREEN NEGATIVE (Neg); URINE METHADONE SCREEN NEGATIVE (Neg); URINE OPIATE SCREEN NEGATIVE (Neg); URINE PHENCYCLIDINE SCREEN NEGATIVE (Neg)
[2018-01-05] MEDS ORDERED: dextrose 5%-1/2 normal saline 1,000 ML IV SCH (11:12)
[2018-01-05] MEDS ORDERED: magnesium hydroxide 30ml (MOM) UD suspension PO PRN (11:15)
[2018-01-05] MEDS ORDERED: LORazepam 2 mg/ml vial IV PRN ×2 (11:15)
[2018-01-05] MEDS ORDERED: acetaminophen 325mg tablet PO PRN (11:15)
[2018-01-05] MEDS ORDERED: morphine 4 MG/ML inj SYRINge IV PRN (11:15)
[2018-01-05] MEDS ORDERED: cloNIDine 0.1 mg tablet PO PRN (11:15)
[2018-01-05] MEDS ORDERED: mag hydrox/Alum hydrox/simeth 30ml oral suspension PO PRN (11:15)
[2018-01-05] MEDS ORDERED: dicyclomine 10 MG capsule PO PRN (11:15)
[2018-01-05] MEDS ORDERED: thiamine 100mg/ml 2ml inj. IV ONE (11:15)
[2018-01-05] MEDS ORDERED: ondansetron/PF 4mg/2ml inj IV PRN (11:15)
[2018-01-05] MEDS ORDERED: haloperidol lactate 5mg/ml inj IM PRN (11:15)
[2018-01-05] MEDS ORDERED: dextrose 50%-water 50ml dispensing syringe IV PRN (11:15)
[2018-01-05] MEDS ORDERED: HYDROcodone/acetaminophen 5mg/325mg tablet PO PRN (11:15)
[2018-01-05] MEDS ORDERED: WALKERFR (12:26)
[2018-01-05 13:30] VITALS: BP 135/83
[2018-01-05] MEDS ORDERED: FOLI1TAB16 PO (13:44)
[2018-01-05] MEDS ORDERED: THI100T PO (13:44)
[2018-01-05] MEDS ORDERED: MULT-1179 PO (14:04)
[2018-01-05] MEDS ORDERED: heparin, porcine 5000 units/ml vial SQ SCH (20:00)
== END 2018-01-05 13:33 | disposition home or self-care (01) ==
LOC: ER 07:27 → UNDOADMIN 11:12 → ED HOLD 11:12 → UNDODISIN 13:30
DX: G40.89 Other seizures (principal); F10.230 Alcohol dependence with withdrawal, uncomplicated; I10 Essential (primary) hypertension; G89.29 Other chronic pain; E03.9 Hypothyroidism, unspecified; R74.0 Nonspecific elevation of levels of transaminase and lactic acid dehydrogenase [LDH]; N17.9 Acute kidney failure, unspecified; Z88.0 Allergy status to penicillin
CPT/HCPCS: 36415; 36600; 51702; 70450; 80053; 80305; 80320; 82803; 82948; 83735; 85018; 85025; 93005; 96361; 96365; 96366; 96368; 96375; 99285; A4315; J2060; J2560; J3411; J7030

== ENCOUNTER 2018-09-02 13:01 | Inpatient (IN) | payer MEDICARE, MEDICAID | END 2018-09-09 13:45 | disposition home or self-care (01) | LOC: ORTHO 4S 09-03 12:27 → ER 13:01 → ED HOLD 17:26 → ORTHO 4S 21:39 | DX: G40.909 Epilepsy, unspecified, not intractable, without status epilepticus (principal); S52.501A Unspecified fracture of the lower end of right radius, initial encounter for closed fracture; F10.239 Alcohol dependence with withdrawal, unspecified; E83.39 Other disorders of phosphorus metabolism; D69.59 Other secondary thrombocytopenia; F10.20 Alcohol dependence, uncomplicated; G93.89 Other specified disorders of brain ==

== ENCOUNTER 2018-09-20 14:39 | Outpatient (CLI) | payer MEDICARE, MEDICAID ==
[~2018-09-20 14:39] MED LIST changes: +CEPH250C PO; -HYDR-3964; +HYDR-3964 PO; +NAPR-1154 PO
[2018-09-20 14:43] VITALS: BP 119/75
== END 2018-09-20 15:40 | disposition home or self-care (01) ==
LOC: ORTHO 14:39
PROVIDERS: ATTEND Nurse Practitioner Family
DX: S52.591A Other fractures of lower end of right radius, initial encounter for closed fracture (principal); S52.611A Displaced fracture of right ulna styloid process, initial encounter for closed fracture; M79.89 Other specified soft tissue disorders; I10 Essential (primary) hypertension; K21.9 Gastro-esophageal reflux disease without esophagitis; Z72.89 Other problems related to lifestyle; Z87.891 Personal history of nicotine dependence; Z88.0 Allergy status to penicillin; X58.XXXA Exposure to other specified factors, initial encounter; Y93.89 Activity, other specified; Y92.89 Other specified places as the place of occurrence of the external cause; Y99.8 Other external cause status
CPT/HCPCS: 73110; 99213; A4590

== ENCOUNTER 2018-10-11 13:04 | Outpatient (CLI) | payer MEDICARE, MEDICAID ==
[2018-10-11 13:02] VITALS: BP 133/86
== END 2018-10-11 13:46 | disposition home or self-care (01) ==
LOC: ORTHO 13:04
PROVIDERS: ATTEND Nurse Practitioner Family
DX: S52.591G Other fractures of lower end of right radius, subsequent encounter for closed fracture with delayed healing (principal); S52.611D Displaced fracture of right ulna styloid process, subsequent encounter for closed fracture with routine healing; I10 Essential (primary) hypertension; K21.9 Gastro-esophageal reflux disease without esophagitis; M19.90 Unspecified osteoarthritis, unspecified site; G40.89 Other seizures; Z98.890 Other specified postprocedural states; Z88.0 Allergy status to penicillin; X58.XXXD Exposure to other specified factors, subsequent encounter
CPT/HCPCS: 73110; 99213

== ENCOUNTER 2018-11-01 14:59 | Outpatient (CLI) | payer MEDICARE, MEDICAID ==
[2018-11-01 15:25] VITALS: BP 137/102
== END 2018-11-01 15:52 | disposition home or self-care (01) ==
LOC: ORTHO 14:59
PROVIDERS: ATTEND Orthopaedic Surgery
DX: S52.591G Other fractures of lower end of right radius, subsequent encounter for closed fracture with delayed healing (principal); S52.611D Displaced fracture of right ulna styloid process, subsequent encounter for closed fracture with routine healing; I10 Essential (primary) hypertension; R56.9 Unspecified convulsions; F17.200 Nicotine dependence, unspecified, uncomplicated; Z88.0 Allergy status to penicillin; Z79.899 Other long term (current) drug therapy; X58.XXXD Exposure to other specified factors, subsequent encounter
CPT/HCPCS: 73110; 99213

== ENCOUNTER 2018-11-30 12:20 | Outpatient (CLI) | payer MEDICARE, MEDICAID ==
[2018-11-30 16:45] VITALS: BP 117/86
== END 2018-11-30 12:38 | disposition home or self-care (01) ==
LOC: ORTHO 12:20
PROVIDERS: ATTEND Orthopaedic Surgery
DX: S52.571D Other intraarticular fracture of lower end of right radius, subsequent encounter for closed fracture with routine healing (principal); S52.611D Displaced fracture of right ulna styloid process, subsequent encounter for closed fracture with routine healing; M19.031 Primary osteoarthritis, right wrist; X58.XXXD Exposure to other specified factors, subsequent encounter
CPT/HCPCS: 73110; 99213

== ENCOUNTER 2019-02-14 10:03 | Inpatient (IN) | payer MEDICARE, MEDICAID ==
[~2019-02-14] VITALS: Ht 170.2 cm; Wt 76.5 kg
[2019-02-14] VITALS (7 sets, daily range): BP systolic 107–130; BP diastolic 71–90
[2019-02-14] MEDS ORDERED: normal saline 1000ML IV soln IVB ONE (10:15)
[2019-02-14] MEDS ORDERED: levetiracetam inj 1,000 MG in normal saline 100ml IV soln 90 ML IV ONE (10:20)
[2019-02-14 10:21] LABS: BASOPHILS % (AUTO) 0.3 % (0-1); EOSINOPHILS # (AUTO) 0.1 X10'3 (0-0.9); EOSINOPHILS % (AUTO) 0.6 % (0-6); HEMATOCRIT 48.1 % (42.0-52.0); HEMOGLOBIN 16.3 g/dl (14.0-17.9); LYMPHOCYTES # (AUTO) 0.5 X10'3 (1.1-4.8); LYMPHOCYTES % (AUTO) 6.2 % (21-51); MEAN CORPUSCULAR HEMOGLOBIN 35.4 PG (27.0-31.0); MEAN CORPUSCULAR HGB CONC 33.8 g/dL (33.0-36.5); MEAN CORPUSCULAR VOLUME 104.9 FL (78-98); MEAN PLATELET VOLUME 8.5 FL (7.4-10.4); MONOCYTES # (AUTO) 0.4 X10'3 (0-0.9); MONOCYTES % (AUTO) 5.1 % (2-12); NEUTROPHILS # (AUTO) 7.7 X10'3 (1.8-7.7); NEUTROPHILS % (AUTO) 87.8 % (42-75); PLATELET COUNT 136 X10'3 (140-440); RED BLOOD COUNT 4.59 X10'6 (4.70-6.10); RED CELL DISTRIBUTION WIDTH 12.7 % (11.5-14.5); WHITE BLOOD COUNT 8.8 X10'3 (4.5-11.0)
--- NOTE | 2019-02-14 10:30 | NUR ---
seizure pads on.
[2019-02-14 10:33] LABS: PARTIAL THROMBOPLASTIN TIME 23 SECONDS (22-32)
[2019-02-14 10:34] LABS: ALANINE AMINOTRANSFERASE 29 U/L (12-78); ALBUMIN 3.7 G/DL (3.4-5.0); ALBUMIN/GLOBULIN RATIO 1.1 (1.1-1.5); ALKALINE PHOSPHATASE 63 IU/L (46-116); ANION GAP 9 (8-16); ASPARTATE AMINO TRANSFERASE 45 U/L (10-37); BILIRUBIN,TOTAL 0.7 MG/DL (0.1-1.0); BLOOD UREA NITROGEN 8 MG/DL (7-18); CALCIUM 7.7 MG/DL (8.5-10.1); CHLORIDE 106 MMOL/L (99-107); CREATININE 1.15 MG/DL (0.60-1.10); GLUCOSE 191 MG/DL (70-104); POTASSIUM 3.6 MMOL/L (3.5-5.1); SODIUM 142 MMOL/L (135-145); TOTAL CARBON DIOXIDE 26.8 MMOL/L (24-32); TOTAL PROTEIN 7.2 G/DL (6.4-8.2); eGFR 64 ML/MIN
[2019-02-14 10:38] LABS: TROPONIN I < 0.04 NG/ML (0.0-0.05)
[2019-02-14 10:39] LABS: ETHANOL < 0.010 GM/DL (0.0-0.010)
--- NOTE | 2019-02-14 10:39 | NUR ---
patient given 1mg iv ativan prior CT.
[2019-02-14] MEDS ORDERED: LORazepam 2 mg/ml vial IV ONE ×3 (10:40→11:20)
[2019-02-14] MEDS ORDERED: LORazepam 2 mg/ml vial IV STA (10:41)
[2019-02-14] MEDS ORDERED: iohexol 350MG/ML 100ml bottle IV ONE (10:50)
[2019-02-14 11:22] LABS: CLARITY,URINE CLEAR (Clear); COLOR,URINE YELLOW (Yellow); GLUCOSE, URINE NEGATIVE (Neg); KETONES,URINE NEGATIVE (Neg); LEUKOCYTE ESTERASE ,URINE NEGATIVE (Neg); NITRITES, URINE NEGATIVE (Neg); OCCULT BLOOD,URINE NEGATIVE (Neg); PROTEIN,URINE TRACE mg/dl (Neg)
[2019-02-14 11:24] LABS: UA COLLECTION TYPE STRAIGHT CATH
[2019-02-14 11:28] LABS: HYALINE CASTS 0-3 /LPF (NEGATIVE); SQUAMOUS EPITHELIAL CELL,UR FEW /LPF (FEW); URINE AMPHETAMINE SCREEN NEGATIVE (Neg); URINE BARBITUATE SCREEN NEGATIVE (Neg); URINE BENZODIAZEPINES SCREEN POSITIVE (Neg); URINE CANNABINOID SCREEN NEGATIVE (Neg); URINE COCAINE SCREEN NEGATIVE (Neg); URINE METHADONE SCREEN NEGATIVE (Neg); URINE OPIATE SCREEN NEGATIVE (Neg); URINE PHENCYCLIDINE SCREEN NEGATIVE (Neg)
[2019-02-14 11:29] LABS: BACTERIA,URINE FEW /HPF (Neg); RBC,URINE 0-2 /HPF (0-2); WBC,URINE 0-4 /HPF (0-4)
--- NOTE | 2019-02-14 12:00 | NUR ---
ortega care given with Jaylin RN,beddings changed,clean sheet on bed,given patient warm blanket.Repositioned for comfort.
[2019-02-14 12:11] LABS: MAGNESIUM 1.5 MG/DL (1.5-2.4); PHOSPHORUS 3.2 MG/DL (2.3-4.5)
--- NOTE | 2019-02-14 12:47 | NUR ---
patient asleep at this time.
--- NOTE | 2019-02-14 13:02 | NUR ---
unable to perform swallow eval due to patient's LOC.
--- NOTE | 2019-02-14 14:40 | NUR ---
patient was given ortega care due to bowel and bladder incontinence.repositioned for comfort.patient was able follow some commands ie lift buttocks during diaper change,was also able to raise bilateral arms,equal sign artist to both hands.
--- NOTE | 2019-02-14 14:40 | NUR ---
Dr. Cancino at bedside.
--- NOTE | 2019-02-14 14:40 | NUR ---
Dr. Cancino made aware that patient has crackles all throughout lung lobes.No order at this time.
[2019-02-14] MEDS ORDERED: ondansetron/PF 4mg/2ml inj IV PRN (15:05)
[2019-02-14] MEDS ORDERED: magnesium 2GM in 50ml NS 50 ML IV PRN (15:05)
[2019-02-14] MEDS ORDERED: Neutra Phos packet PO PRN (15:05)
[2019-02-14] MEDS ORDERED: magnesium 4gm in 100ml NS 100 ML IV PRN (15:05)
[2019-02-14] MEDS: folic acid 1mg tablet PO SCH (15:05)
[2019-02-14] MEDS ORDERED: sodium phosphate inj. 15 MMOL in dextrose 5%-water 150 ML IV PRN (15:05)
[2019-02-14] MEDS ORDERED: magnesium hydroxide 30ml (MOM) UD suspension PO PRN (15:05)
[2019-02-14] MEDS ORDERED: potassium Cl 20 mEq SR tablet PO PRN ×2 (15:05)
[2019-02-14] MEDS ORDERED: sodium phosphate inj. 30 MMOL in dextrose 5%-water 250 ML IV PRN (15:05)
[2019-02-14] MEDS ORDERED: morphine 2 MG/ML inj. syringe IV PRN (15:05)
[2019-02-14] MEDS ORDERED: MVI, adult No.4 with vit. K 10 ML in dextrose 5% water 500ml 500 ML IV SCH ×2 (15:05)
[2019-02-14] MEDS ORDERED: thiamine inj. 100 MG in normal saline 100ml IV soln 100 ML IV ONE (15:05)
[2019-02-14] MEDS: K, MAG and/or Phos replacement - Verify level? MC SCH (15:05)
[2019-02-14] MEDS: thiamine 100mg tablet PO SCH (15:05)
[2019-02-14] MEDS ORDERED: magnesium Cl slow-release 64mg tablet PO PRN (15:05)
[2019-02-14] MEDS ORDERED: MVI, adult No.4 with vit. K 10 ML in dextrose 5% water 500ml 500 ML IV ONE ×2 (15:12)
[2019-02-14] MEDS ORDERED: thiamine inj. 100 MG, folic acid inj. 2 MG in normal saline 100ml IV soln 100 ML IV ONE (15:14)
--- NOTE | 2019-02-14 15:18 | NUR ---
MVI IV and banana bag not available at this time,spoke to Isidro/pharmacist.
[2019-02-14] MEDS: sodium chloride 0.45% 1,000 ML IV SCH (15:23)
--- NOTE | 2019-02-14 15:35 | NUR ---
Report received from Dena RN, ED. Patient to be transported with belongings on telemetry. Currently on 3L NC, nonverbal. Sinus tachycardia while receiving 1/2NS @ 75 mL/hr.
[2019-02-14 15:45] LABS: AMYLASE 61 U/L (25-115); LIPASE 107 U/L (73-393)
[2019-02-14] MEDS: LORazepam 2 mg/ml vial IV PRN ×4 (16:35→21:37)
[2019-02-14] MEDS ORDERED: HYDR-3973 PO (16:57)
--- NOTE | 2019-02-14 18:23 | NUR ---
Problems reprioritized. Patient report given, questions answered & plan of care reviewed with Jacy MULLER.
--- NOTE | 2019-02-14 18:25 | NUR ---
[facility] I have received report from Seun/Fei RNs and had the opportunity to ask questions and assume patient care. Patient resting in bed, drowsy but extremely restless when awake. Follows some commands, pulls at lines/gown constantly when awake. HR in high o9 Addendum: 02/14/19 at 1919 by Jacy Olson RN CONTINUATION: HR in high 90s in sinus tachycardia, saturating at 98% on 2L NC with respirations in 20s/minute. Will continue to monitor patient closely and will administer ativan as needed per MD orders.
--- NOTE | 2019-02-14 23:00 | NUR ---
Patient having very frequent loose incontinent stools, new order for rectal tube received. No other changes in patient condition noted, will continue to monitor.
[2019-02-15] VITALS (24 sets, daily range): BP systolic 94–138; BP diastolic 53–96
[2019-02-15] MEDS: LORazepam 2 mg/ml vial IV PRN ×8 (00:06→23:56)
[2019-02-15] MEDS: sodium chloride 0.45% 1,000 ML IV SCH ×2 (03:44→16:04)
--- NOTE | 2019-02-15 04:00 | NUR ---
No changes in patient condition noted. Will continue to monitor.
[2019-02-15 04:49] LABS: BASOPHILS % (AUTO) 0.2 % (0-1); EOSINOPHILS % (AUTO) 0.2 % (0-6); HEMATOCRIT 50.7 % (42.0-52.0); HEMOGLOBIN 17.3 g/dl (14.0-17.9); LYMPHOCYTES # (AUTO) 1.4 X10'3 (1.1-4.8); NEUTROPHILS # (AUTO) 11.7 X10'3 (1.8-7.7); WHITE BLOOD COUNT 14.1 X10'3 (4.5-11.0)
[2019-02-15 04:53] LABS: LYMPHOCYTES % (AUTO) 10.1 % (21-51); MEAN CORPUSCULAR HEMOGLOBIN 34.9 PG (27.0-31.0); MEAN CORPUSCULAR HGB CONC 34.1 g/dL (33.0-36.5); MEAN CORPUSCULAR VOLUME 102.4 FL (78-98); MEAN PLATELET VOLUME 9.6 FL (7.4-10.4); MONOCYTES # (AUTO) 0.8 X10'3 (0-0.9); NEUTROPHILS % (AUTO) 83.5 % (42-75); PLATELET COUNT 134 X10'3 (140-440); RED BLOOD COUNT 4.95 X10'6 (4.70-6.10); RED CELL DISTRIBUTION WIDTH 12.9 % (11.5-14.5)
[2019-02-15 04:59] LABS: PARTIAL THROMBOPLASTIN TIME 29 SECONDS (22-32)
[2019-02-15 05:01] LABS: ALANINE AMINOTRANSFERASE 25 U/L (12-78); ALBUMIN 3.5 G/DL (3.4-5.0); ALKALINE PHOSPHATASE 61 IU/L (46-116); AMYLASE 26 U/L (25-115); ANION GAP 14 (8-16); ASPARTATE AMINO TRANSFERASE 39 U/L (10-37); BILIRUBIN,TOTAL 1.6 MG/DL (0.1-1.0); BLOOD UREA NITROGEN 6 MG/DL (7-18); CALCIUM 8.5 MG/DL (8.5-10.1); CHLORIDE 103 MMOL/L (99-107); CREATININE 0.75 MG/DL (0.60-1.10); GLUCOSE 106 MG/DL (70-104); LIPASE < 50 U/L (73-393); MAGNESIUM 1.5 MG/DL (1.5-2.4); PHOSPHORUS 2.3 MG/DL (2.3-4.5); POTASSIUM 3.5 MMOL/L (3.5-5.1); SODIUM 142 MMOL/L (135-145); TOTAL CARBON DIOXIDE 25.3 MMOL/L (24-32); TOTAL PROTEIN 7.1 G/DL (6.4-8.2); eGFR > 90 ML/MIN
--- NOTE | 2019-02-15 06:14 | NUR ---
Problems reprioritized. Patient report given, questions answered & plan of care reviewed with Sandhya MULLER.
--- NOTE | 2019-02-15 06:36 | NUR ---
Patient in room CICU 2011. I have received report from YOHANA Louie and had the opportunity to ask questions and assume patient care.
[2019-02-15] MEDS: folic acid 1mg tablet PO SCH (07:52)
[2019-02-15] MEDS: thiamine 100mg tablet PO SCH (07:52)
[2019-02-15] MEDS: multivitamins, therapeutics tablet PO SCH (07:52)
[2019-02-15] MEDS: levetiracetam 250mg tablet PO SCH ×2 (07:54→20:54)
[2019-02-15] MEDS: K, MAG and/or Phos replacement - Verify level? MC SCH (08:00)
[2019-02-15] MEDS ORDERED: LEVE500T PO (11:03)
--- NOTE | 2019-02-15 18:17 | NUR ---
Problems reprioritized. Patient report given, questions answered & plan of care reviewed with YOHANA Louie.
[2019-02-16] VITALS (25 sets, daily range): BP systolic 102–165; BP diastolic 75–114
--- NOTE | 2019-02-16 00:07 | NUR ---
Patient extremely restless in bed, occasionally agitated. Ativan being administered PRN per MD orders, vitals WNL at this time. Will continue to monitor patient.
[2019-02-16] MEDS: LORazepam 2 mg/ml vial IV PRN ×5 (02:09→23:40)
--- NOTE | 2019-02-16 02:24 | NUR ---
Patient now extremely agitated and restless in bed, attempting to get out of bed and not following commands to stay in bed. PRN ativan administered as ordered without effect. Notified Jose East NP, new orders received for IM geodon. Will administer as ordered.
[2019-02-16] MEDS ORDERED: ziprasidone IM 20mg inj **IM only IM ONE (02:25)
--- NOTE | 2019-02-16 06:15 | NUR ---
Problems reprioritized. Patient report given, questions answered & plan of care reviewed with Landon MULLER.
[2019-02-16] MEDS: sodium chloride 0.45% 1,000 ML IV SCH ×2 (07:05→20:53)
--- NOTE | 2019-02-16 07:23 | NUR ---
Patient unable to take PO meds at this time as he is obtunded from [place]. Will again when patient able, or will see if MD wants to switch to IV Addendum: 02/16/19 at 0941 by Landon Casey RN Patient waking up more. Tried a nursing bedside swallow. Patient coughed with small sips of water. Not safe to take PO at this time. Will address with MD during rounds
[2019-02-16] MEDS: thiamine 100mg tablet PO SCH (08:00)
[2019-02-16] MEDS: multivitamins, therapeutics tablet PO SCH (08:00)
[2019-02-16] MEDS: levetiracetam 250mg tablet PO SCH (08:00)
[2019-02-16] MEDS: folic acid 1mg tablet PO SCH (08:00)
[2019-02-16] MEDS: K, MAG and/or Phos replacement - Verify level? MC SCH (08:00)
[2019-02-16 08:36] LABS: BASOPHILS % (AUTO) 0.5 % (0-1); EOSINOPHILS # (AUTO) 0.1 X10'3 (0-0.9); EOSINOPHILS % (AUTO) 0.5 % (0-6); LYMPHOCYTES # (AUTO) 1.3 X10'3 (1.1-4.8); LYMPHOCYTES % (AUTO) 12.9 % (21-51); MEAN CORPUSCULAR HEMOGLOBIN 34.9 PG (27.0-31.0); MEAN CORPUSCULAR HGB CONC 34.2 g/dL (33.0-36.5); MEAN CORPUSCULAR VOLUME 102.1 FL (78-98); MONOCYTES # (AUTO) 0.6 X10'3 (0-0.9); MONOCYTES % (AUTO) 6.2 % (2-12); NEUTROPHILS # (AUTO) 7.9 X10'3 (1.8-7.7); NEUTROPHILS % (AUTO) 79.9 % (42-75); PLATELET COUNT 121 X10'3 (140-440); RED BLOOD COUNT 5.39 X10'6 (4.70-6.10); RED CELL DISTRIBUTION WIDTH 12.9 % (11.5-14.5); WHITE BLOOD COUNT 9.9 X10'3 (4.5-11.0)
[2019-02-16 08:41] LABS: HEMOGLOBIN 18.8 g/dl (14.0-17.9)
[2019-02-16 08:50] LABS: PARTIAL THROMBOPLASTIN TIME 30 SECONDS (22-32)
[2019-02-16 08:51] LABS: ANION GAP 13 (8-16); BILIRUBIN,TOTAL 1.5 MG/DL (0.1-1.0); BLOOD UREA NITROGEN 6 MG/DL (7-18); BUN/CREATININE RATIO 8.2 (5.4-32.0); CALCIUM 8.7 MG/DL (8.5-10.1); CHLORIDE 101 MMOL/L (99-107); CREATININE 0.73 MG/DL (0.60-1.10); GLUCOSE 97 MG/DL (70-104); MAGNESIUM 1.5 MG/DL (1.5-2.4); PHOSPHORUS 2.9 MG/DL (2.3-4.5); POTASSIUM 3.3 MMOL/L (3.5-5.1); SODIUM 138 MMOL/L (135-145); TOTAL PROTEIN 7.9 G/DL (6.4-8.2); eGFR > 90 ML/MIN
[2019-02-16 08:52] LABS: ALANINE AMINOTRANSFERASE 24 U/L (12-78); ALBUMIN 3.6 G/DL (3.4-5.0); ALBUMIN/GLOBULIN RATIO 0.8 (1.1-1.5); ALKALINE PHOSPHATASE 65 IU/L (46-116); AMYLASE 18 U/L (25-115); ASPARTATE AMINO TRANSFERASE 29 U/L (10-37); LIPASE 61 U/L (73-393)
[2019-02-16] MEDS ORDERED: ziprasidone IM 20mg inj **IM only IM PRN (10:45)
[2019-02-16] MEDS ORDERED: potassium Cl 20 mEq SR tablet PO PRN ×2 (10:50)
[2019-02-16] MEDS ORDERED: thiamine inj. 100 MG in normal saline 100ml IV soln 99 ML IV SCH (11:00)
[2019-02-16] MEDS ORDERED: THIAMINE IV SCH (11:02)
[2019-02-16] MEDS ORDERED: [UNRECOGNIZED DRUG - OTHER] IV SCH (11:02)
[2019-02-16] MEDS ORDERED: MAGNESIUM SULF IV SCH (11:02)
[2019-02-16] MEDS: levetiracetam inj 500 MG in normal saline 100ml IV soln 95 ML IV SCH ×2 (11:45→19:34)
[2019-02-16] MEDS: MVI, adult No.4 with vit. K 10 ML in dextrose 5% water 500ml 490 ML IV SCH ×2 (11:58)
[2019-02-16] MEDS: potassium CL 10mEq/100ml bag 100 ML IV PRN ×4 (12:47→17:16)
--- NOTE | 2019-02-16 18:20 | NUR ---
Patient in room CICU 2011. I have received report from Landon MULLER and had the opportunity to ask questions and assume patient care.Pt received wakeful, unable to follow commands, non verbal. On room air pt saturates 95%. IV is patent without infiltration nto right AC, left AC IV site flushed. Rhythm is sinus tach HR 118. Negrno cath & rectal bag are patent to gravity drainage bags. No distress. Dongola splints are secure, sitter at bedside.
[2019-02-16] MEDS ORDERED: acetaminophen 1,000mg/100ml IV 100 ML IV ONE (20:35)
[2019-02-17] VITALS (23 sets, daily range): BP systolic 94–159; BP diastolic 56–98
[2019-02-17 03:28] LABS: ALANINE AMINOTRANSFERASE 22 U/L (12-78); ALBUMIN 2.9 G/DL (3.4-5.0); ALBUMIN/GLOBULIN RATIO 0.8 (1.1-1.5); ALKALINE PHOSPHATASE 49 IU/L (46-116); AMYLASE 17 U/L (25-115); ANION GAP 11 (8-16); ASPARTATE AMINO TRANSFERASE 31 U/L (10-37); BILIRUBIN,TOTAL 1.2 MG/DL (0.1-1.0); BLOOD UREA NITROGEN 5 MG/DL (7-18); BUN/CREATININE RATIO 6.8 (5.4-32.0); CALCIUM 8.1 MG/DL (8.5-10.1); CHLORIDE 107 MMOL/L (99-107); CREATININE 0.74 MG/DL (0.60-1.10); GLUCOSE 98 MG/DL (70-104); LIPASE 69 U/L (73-393); MAGNESIUM 1.3 MG/DL (1.5-2.4); PHOSPHORUS 3.6 MG/DL (2.3-4.5); SODIUM 141 MMOL/L (135-145); TOTAL CARBON DIOXIDE 22.8 MMOL/L (24-32); TOTAL PROTEIN 6.5 G/DL (6.4-8.2); eGFR > 90 ML/MIN
[2019-02-17 03:38] LABS: POTASSIUM 3.5 MMOL/L (3.5-5.1)
[2019-02-17] MEDS: sodium chloride 0.45% 1,000 ML IV SCH ×3 (06:00→23:57)
--- NOTE | 2019-02-17 06:27 | NUR ---
Problems reprioritized. Patient report given, questions answered & plan of care reviewed with Landon MULLER.
[2019-02-17 06:34] LABS: PARTIAL THROMBOPLASTIN TIME 26 SECONDS (22-32)
[2019-02-17 06:40] LABS: BASOPHILS % (AUTO) 0.5 % (0-1); EOSINOPHILS # (AUTO) 0.1 X10'3 (0-0.9); EOSINOPHILS % (AUTO) 1.5 % (0-6); HEMATOCRIT 52.3 % (42.0-52.0); LYMPHOCYTES # (AUTO) 1.6 X10'3 (1.1-4.8); LYMPHOCYTES % (AUTO) 19.7 % (21-51); MEAN CORPUSCULAR HEMOGLOBIN 35.4 PG (27.0-31.0); MEAN CORPUSCULAR HGB CONC 34.4 g/dL (33.0-36.5); MEAN CORPUSCULAR VOLUME 102.7 FL (78-98); MONOCYTES # (AUTO) 0.9 X10'3 (0-0.9); MONOCYTES % (AUTO) 10.6 % (2-12); NEUTROPHILS # (AUTO) 5.5 X10'3 (1.8-7.7); NEUTROPHILS % (AUTO) 67.7 % (42-75); PLATELET COUNT 118 X10'3 (140-440); RED BLOOD COUNT 5.09 X10'6 (4.70-6.10); RED CELL DISTRIBUTION WIDTH 12.8 % (11.5-14.5); WHITE BLOOD COUNT 8.1 X10'3 (4.5-11.0)
[2019-02-17] MEDS: metoclopramide 10mg/10 ml UD oral solution NG SCH ×3 (08:00→20:06)
[2019-02-17] MEDS: enoxaparin 40mg/0.4ml syringe SUBCUT SCH (08:09)
[2019-02-17] MEDS: K, MAG and/or Phos replacement - Verify level? MC SCH (08:16)
[2019-02-17] MEDS: MVI, adult No.4 with vit. K 10 ML in dextrose 5% water 500ml 490 ML IV SCH ×2 (09:05)
--- NOTE | 2019-02-17 09:41 | NUR ---
TF consult: Pt currently in CICU not intubated. Currently on a clear liquid diet with documented 0% PO intake not meeting nutrient needs. Pt with Corpak placed, requests Jevity 1.2 to begin at 40 mL/hr with goal rate of 75 mL/hr; this goal rate is appropriate to meet patient's nutrient needs. Will continue to follow and monitor tolerance to nutrition support. Recommendations: 1) Continuous TF via Corpak using Jevity 1.2 to begin at 40 mL/hr per MD request with goal rate of 75 mL/hr to provide: 1800 mL total volume, 2160 kcal, 100 g protein, and 1453 mL water 2) Additional 120 mL water flush Q4H 3) Prealbumin q / 4) Daily weights 5) Continue banana bag given hx Etoh abuse Addendum: 02/17/19 at [address] Amended: Links added.
[2019-02-17] MEDS: Levetiracetam-NS 500mg/100ml 100 ML IV SCH ×2 (09:58→20:06)
--- NOTE | 2019-02-17 11:24 | NUR ---
confirmed ok to feed through corpak
--- NOTE | 2019-02-17 13:43 | NUR ---
tube feed started at 40 per MD order
[2019-02-17] MEDS: NORMAL SALINE IV SCH ×2 (13:45→21:01)
[2019-02-17] MEDS: THIAMINE IV SCH ×2 (13:45→21:01)
--- NOTE | 2019-02-17 17:06 | NUR ---
Patient back from MRI. Tube feed and IV fluids restarted. Patient positioned in bed on clean sheets and hooked up to monitor.
[2019-02-17] MEDS: acetaminophen 325mg/10.15ml oral unit dose solution NG PRN ×2 (17:18→22:17)
--- NOTE | 2019-02-17 18:25 | NUR ---
Patient in room CICU 2011. I have received report from Landon MULLER and had the opportunity to ask questions and assume patient care. Patient received alert & responsive answering questions appropriately. Oriented to person/place/month/year/. Moves all extremities. On room air oxygen saturation is 95%. Enteric tube feedings Jevity 1.2 @ 40 ml/hr. HOB is elevated & aspiration precautions observed. Pt has a bedside sitter. Negron cath drains cloudy arvin colored urine. Rectal tube drains brown liquid stool. Patient is watching TV at this time no distress.
--- NOTE | 2019-02-17 20:15 | NUR ---
Swallow assessment done. Pt tolerated 3 oz of water without coughing or difficulty swallowing.
[2019-02-18] VITALS (17 sets, daily range): BP systolic 110–152; BP diastolic 55–99
[2019-02-18] MEDS: metoclopramide 10mg/10 ml UD oral solution NG SCH ×2 (02:42→08:00)
[2019-02-18 03:01] LABS: BASOPHILS % (AUTO) 0.6 % (0-1); EOSINOPHILS # (AUTO) 0.1 X10'3 (0-0.9); EOSINOPHILS % (AUTO) 1.4 % (0-6); HEMATOCRIT 48.6 % (42.0-52.0); HEMOGLOBIN 16.7 g/dl (14.0-17.9); LYMPHOCYTES # (AUTO) 1.5 X10'3 (1.1-4.8); LYMPHOCYTES % (AUTO) 24.3 % (21-51); MEAN CORPUSCULAR HEMOGLOBIN 35.5 PG (27.0-31.0); MEAN CORPUSCULAR HGB CONC 34.5 g/dL (33.0-36.5); MEAN CORPUSCULAR VOLUME 102.8 FL (78-98); MEAN PLATELET VOLUME 9.8 FL (7.4-10.4); MONOCYTES # (AUTO) 0.7 X10'3 (0-0.9); MONOCYTES % (AUTO) 11.8 % (2-12); NEUTROPHILS # (AUTO) 3.9 X10'3 (1.8-7.7); NEUTROPHILS % (AUTO) 61.9 % (42-75); PLATELET COUNT 137 X10'3 (140-440); RED BLOOD COUNT 4.72 X10'6 (4.70-6.10); RED CELL DISTRIBUTION WIDTH 12.8 % (11.5-14.5); WHITE BLOOD COUNT 6.2 X10'3 (4.5-11.0)
[2019-02-18] MEDS: acetaminophen 325mg/10.15ml oral unit dose solution NG PRN ×2 (03:05→21:21)
[2019-02-18 03:07] LABS: ALANINE AMINOTRANSFERASE 26 U/L (12-78); ALBUMIN 2.8 G/DL (3.4-5.0); ALBUMIN/GLOBULIN RATIO 0.8 (1.1-1.5); ALKALINE PHOSPHATASE 52 IU/L (46-116); AMYLASE 21 U/L (25-115); ANION GAP 12 (8-16); ASPARTATE AMINO TRANSFERASE 20 U/L (10-37); BILIRUBIN,TOTAL 0.9 MG/DL (0.1-1.0); BLOOD UREA NITROGEN 4 MG/DL (7-18); BUN/CREATININE RATIO 4.8 (5.4-32.0); CHLORIDE 103 MMOL/L (99-107); CREATININE 0.84 MG/DL (0.60-1.10); GLUCOSE 98 MG/DL (70-104); LIPASE 125 U/L (73-393); MAGNESIUM 1.7 MG/DL (1.5-2.4); PHOSPHORUS 3.2 MG/DL (2.3-4.5); POTASSIUM 3.3 MMOL/L (3.5-5.1); SODIUM 137 MMOL/L (135-145); TOTAL CARBON DIOXIDE 22.4 MMOL/L (24-32); TOTAL PROTEIN 6.4 G/DL (6.4-8.2); eGFR > 90 ML/MIN
[2019-02-18] MEDS: potassium CL 10mEq/100ml bag 100 ML IV PRN ×4 (03:40→08:53)
--- NOTE | 2019-02-18 03:52 | NUR ---
Under direct observation patient was repositioning self & feeding tube dislodged and came out by 6 inches. Tube feeding stopped immediately. Savanah Salcedo called & made aware. Pt did have a bedside swallow assessment and tolerated water without coughing. Order obtained for clear liquids & okay to leave NGT out at this time.
--- NOTE | 2019-02-18 05:00 | NUR ---
Right AC IV site leaking & painful. D/C'd with catheter intact. Left AC IV site also painful & reddened, #18G catheter removed intact. New IV sites x2 Right upper arm #20G. & right F/A #20G.
[2019-02-18] MEDS: LORazepam 2 mg/ml vial IV PRN ×2 (05:21→18:26)
[2019-02-18 06:26] LABS: PARTIAL THROMBOPLASTIN TIME 30 SECONDS (22-32)
--- NOTE | 2019-02-18 06:27 | NUR ---
Problems reprioritized. Patient report given, questions answered & plan of care reviewed with Landon MULLER.
--- NOTE | 2019-02-18 06:39 | NUR ---
ST paged for BSS
[2019-02-18] MEDS: sodium chloride 0.45% 1,000 ML IV SCH ×4 (06:41→21:21)
[2019-02-18] MEDS: Levetiracetam-NS 500mg/100ml 100 ML IV SCH ×2 (07:04→19:24)
[2019-02-18] MEDS: K, MAG and/or Phos replacement - Verify level? MC SCH (08:03)
[2019-02-18] MEDS: MVI, adult No.4 with vit. K 10 ML in dextrose 5% water 500ml 490 ML IV SCH ×2 (08:58)
[2019-02-18] MEDS: enoxaparin 40mg/0.4ml syringe SUBCUT SCH (09:07)
[2019-02-18] MEDS: THIAMINE IV SCH (10:04)
[2019-02-18] MEDS: NORMAL SALINE IV SCH (10:04)
[2019-02-18] MEDS: magnesium 2GM in 50ml NS 50 ML IV SCH (10:53)
[2019-02-18] MEDS ORDERED: LORazepam 1 MG tablet PO PRN (11:20)
--- NOTE | 2019-02-18 11:58 | NUR ---
Report given to receiving RN
--- NOTE | 2019-02-18 12:19 | NUR ---
Patient in room [facility] 2011. I have received report from YOHAAN Navarrete and had the opportunity to ask questions and assume patient care. Addendum: 02/18/19 at 1238 by Nadiya Woodard RN agree with marah MULLERpress hand
--- NOTE | 2019-02-18 13:15 | NUR ---
called report to Jennifer MULLER on neuro
--- NOTE | 2019-02-18 13:29 | NUR ---
per pt wallet and rodrigez and clothing taken home by Kirstie girlfrienrolando
--- NOTE | 2019-02-18 14:05 | NUR ---
Patient in room [facility]TH[facility] 4010. I have received report from MERCED MULLER and had the opportunity to ask questions and assume patient care.
--- NOTE | 2019-02-18 18:15 | NUR ---
Patient in room [facility]TH[facility] 4010. I have received report from YOHANA Lainez and had the opportunity to ask questions and assume patient care.
--- NOTE | 2019-02-18 18:15 | NUR ---
Problems reprioritized. Patient report given, questions answered & plan of care reviewed with NIRANJAN MULLER.
[2019-02-19] MEDS: sodium chloride 0.45% 1,000 ML IV SCH ×3 (04:01→16:09)
[2019-02-19 06:00] VITALS: BP 135/88
--- NOTE | 2019-02-19 06:00 | NUR ---
Patient in room [facility]TH[facility] 4010. I have received report from and had the opportunity to ask questions and assume patient care YOHANA De Jesus
[2019-02-19 06:36] LABS: ALANINE AMINOTRANSFERASE 17 U/L (12-78); ALBUMIN 2.8 G/DL (3.4-5.0); ALBUMIN/GLOBULIN RATIO 0.8 (1.1-1.5); ALKALINE PHOSPHATASE 46 IU/L (46-116); ANION GAP 12 (8-16); ASPARTATE AMINO TRANSFERASE 19 U/L (10-37); BILIRUBIN,TOTAL 1.1 MG/DL (0.1-1.0); BLOOD UREA NITROGEN 5 MG/DL (7-18); BUN/CREATININE RATIO 7.5 (5.4-32.0); CALCIUM 8.3 MG/DL (8.5-10.1); CHLORIDE 98 MMOL/L (99-107); CREATININE 0.67 MG/DL (0.60-1.10); GLUCOSE 90 MG/DL (70-104); LIPASE 100 U/L (73-393); MAGNESIUM 1.4 MG/DL (1.5-2.4); POTASSIUM 3.6 MMOL/L (3.5-5.1); SODIUM 134 MMOL/L (135-145); TOTAL CARBON DIOXIDE 23.6 MMOL/L (24-32); TOTAL PROTEIN 6.2 G/DL (6.4-8.2); eGFR > 90 ML/MIN
--- NOTE | 2019-02-19 06:51 | NUR ---
Problems reprioritized. Patient report given, questions answered & plan of care reviewed with YOHANA Bryson.
[2019-02-19 07:43] LABS: BASOPHILS % (AUTO) 0.9 % (0-1); EOSINOPHILS # (AUTO) 0.1 X10'3 (0-0.9); EOSINOPHILS % (AUTO) 2.1 % (0-6); HEMATOCRIT 44.2 % (42.0-52.0); HEMOGLOBIN 15.7 g/dl (14.0-17.9); LYMPHOCYTES # (AUTO) 1.6 X10'3 (1.1-4.8); LYMPHOCYTES % (AUTO) 27.3 % (21-51); MEAN CORPUSCULAR HEMOGLOBIN 35.8 PG (27.0-31.0); MEAN CORPUSCULAR HGB CONC 35.5 g/dL (33.0-36.5); MEAN CORPUSCULAR VOLUME 100.8 FL (78-98); MEAN PLATELET VOLUME 9.7 FL (7.4-10.4); MONOCYTES # (AUTO) 0.9 X10'3 (0-0.9); MONOCYTES % (AUTO) 15.7 % (2-12); NEUTROPHILS # (AUTO) 3.1 X10'3 (1.8-7.7); PLATELET COUNT 120 X10'3 (140-440); RED BLOOD COUNT 4.38 X10'6 (4.70-6.10); RED CELL DISTRIBUTION WIDTH 12.5 % (11.5-14.5); WHITE BLOOD COUNT 5.7 X10'3 (4.5-11.0)
[2019-02-19] MEDS: K, MAG and/or Phos replacement - Verify level? MC SCH (08:00)
[2019-02-19] MEDS: Levetiracetam-NS 500mg/100ml 100 ML IV SCH ×2 (08:38→19:54)
[2019-02-19] MEDS: enoxaparin 40mg/0.4ml syringe SUBCUT SCH (08:39)
[2019-02-19] MEDS: magnesium 2GM in 50ml NS 50 ML IV SCH (09:25)
[2019-02-19 10:00] VITALS: BP 115/63
[2019-02-19] MEDS: MVI, adult No.4 with vit. K 10 ML in dextrose 5% water 500ml 490 ML IV SCH ×2 (10:03)
[2019-02-19] MEDS: acetaminophen 325mg/10.15ml oral unit dose solution NG PRN (13:00)
[2019-02-19 17:00] VITALS: BP 127/78
--- NOTE | 2019-02-19 18:15 | NUR ---
Problems reprioritized. Patient report given, questions answered & plan of care reviewed with YOHANA De Jesus.
[2019-02-19] MEDS: acetaminophen 325mg tablet PO PRN (21:34)
[2019-02-19 22:00] VITALS: BP 140/88
--- NOTE | 2019-02-19 22:03 | NUR ---
Rectal tube d/c per TAXICAB COORDINATOR order
--- NOTE | 2019-02-19 22:58 | NUR ---
CARDIOPULMONARY TECHNOLOGIST CHIEF July was inform of pt .Melanyp [address] order for Tylenol a d d/c Rectal tube. We follow up with ptKenton balbuena.
[2019-02-20] MEDS: sodium chloride 0.45% 1,000 ML IV SCH ×3 (00:19→13:32)
--- NOTE | 2019-02-20 01:30 | NUR ---
GAMING COMMISSIONER has been notified regarding pt. dark emeses of 300ml .Zolfran been given and ativan nurse practitioner ordered labs. Will continue to monitor.
[2019-02-20 01:46] VITALS: BP 142/75
[2019-02-20] MEDS: LORazepam 2 mg/ml vial IV PRN (01:55)
[2019-02-20 02:42] LABS: BASOPHILS % (AUTO) 0.6 % (0-1); EOSINOPHILS # (AUTO) 0.1 X10'3 (0-0.9); EOSINOPHILS % (AUTO) 2.2 % (0-6); HEMATOCRIT 42.1 % (42.0-52.0); HEMOGLOBIN 14.8 g/dl (14.0-17.9); LYMPHOCYTES # (AUTO) 1.2 X10'3 (1.1-4.8); LYMPHOCYTES % (AUTO) 24.2 % (21-51); MEAN CORPUSCULAR HEMOGLOBIN 35.3 PG (27.0-31.0); MEAN CORPUSCULAR HGB CONC 35.1 g/dL (33.0-36.5); MEAN CORPUSCULAR VOLUME 100.5 FL (78-98); MEAN PLATELET VOLUME 9.3 FL (7.4-10.4); MONOCYTES # (AUTO) 0.9 X10'3 (0-0.9); MONOCYTES % (AUTO) 17.3 % (2-12); NEUTROPHILS # (AUTO) 2.8 X10'3 (1.8-7.7); NEUTROPHILS % (AUTO) 55.7 % (42-75); PLATELET COUNT 127 X10'3 (140-440); RED BLOOD COUNT 4.19 X10'6 (4.70-6.10); RED CELL DISTRIBUTION WIDTH 12.3 % (11.5-14.5)
[2019-02-20 02:50] LABS: CHLORIDE 96 MMOL/L (99-107); GLUCOSE 107 MG/DL (70-104); POTASSIUM 3.9 MMOL/L (3.5-5.1); SODIUM 129 MMOL/L (135-145); TOTAL CARBON DIOXIDE 26.2 MMOL/L (24-32)
[2019-02-20 02:51] LABS: ALANINE AMINOTRANSFERASE 19 U/L (12-78); ALBUMIN 2.8 G/DL (3.4-5.0); ALBUMIN/GLOBULIN RATIO 0.8 (1.1-1.5); ALKALINE PHOSPHATASE 50 IU/L (46-116); ANION GAP 7 (8-16); ASPARTATE AMINO TRANSFERASE 21 U/L (10-37); BLOOD UREA NITROGEN 7 MG/DL (7-18); BUN/CREATININE RATIO 9.5 (5.4-32.0); CALCIUM 8.4 MG/DL (8.5-10.1); CREATININE 0.74 MG/DL (0.60-1.10); MAGNESIUM 1.4 MG/DL (1.5-2.4); PHOSPHORUS 4.5 MG/DL (2.3-4.5); TOTAL PROTEIN 6.2 G/DL (6.4-8.2); eGFR > 90 ML/MIN
[2019-02-20 02:59] LABS: PARTIAL THROMBOPLASTIN TIME 31 SECONDS (22-32)
[2019-02-20] MEDS ORDERED: ESOMEPRAZOLE IV SCH (03:00)
[2019-02-20] MEDS: ESOMEPRAZOLE 40 MG VIAL IV SCH ×2 (03:41→04:14)
[2019-02-20] MEDS: pantoprazole 40MG/NS 100ML BAG 100 ML IV SCH ×5 (03:41→22:14)
[2019-02-20 03:44] LABS: GASTRIC OCCULT BLOOD POSITIVE (Neg)
[2019-02-20 03:55] LABS: CLARITY,URINE SLIGHTLY CLOUDY (Clear); COLOR,URINE YELLOW (Yellow); GLUCOSE, URINE NEGATIVE (Neg); KETONES,URINE NEGATIVE (Neg); LEUKOCYTE ESTERASE ,URINE NEGATIVE (Neg); NITRITES, URINE NEGATIVE (Neg); OCCULT BLOOD,URINE LARGE (Neg); PH,URINE 6.5 (4.8-8.0); PROTEIN,URINE NEGATIVE (Neg); UROBILINOGEN,URINE >=8.0 E.U/dL (0.2-1.0)
[2019-02-20 03:56] LABS: UA COLLECTION TYPE FOLEY CATH
[2019-02-20 04:08] LABS: BACTERIA,URINE NONE SEEN /HPF (Neg); MUCUS STRANDS FEW /LPF (Neg); RBC,URINE 50-100 /HPF (0-2); SQUAMOUS EPITHELIAL CELL,UR FEW /LPF (FEW); WBC,URINE 0-4 /HPF (0-4)
[2019-02-20] MEDS ORDERED: magnesium Cl slow-release 64mg tablet PO PRN (05:00)
[2019-02-20 06:00] VITALS: BP 133/84
--- NOTE | 2019-02-20 06:30 | NUR ---
Pt confused, standing up at side of bed, pulled out RFA IV, trying to pull out L arm IV, requesting to have it cut. rectal tube removed on NOC, need stool sample. pt had BM on floor, mucous, light color, no coffee ground color/consistency noted. pt inpulsive, bed alarm turned on. pt is complient when asked directly to perform task.Will continue to monitor
--- NOTE | 2019-02-20 06:35 | NUR ---
Problems reprioritized. Patient report given, questions answered & plan of care reviewed with YOHANA Vee.
[2019-02-20] MEDS: K, MAG and/or Phos replacement - Verify level? MC SCH (08:00)
[2019-02-20] MEDS: Levetiracetam-NS 500mg/100ml 100 ML IV SCH ×2 (09:24→19:50)
[2019-02-20 10:00] VITALS: BP 130/86
[2019-02-20 10:14] LABS: OCCULT BLOOD STOOL NEGATIVE (Neg)
[2019-02-20] MEDS: magnesium 2GM in 50ml NS 50 ML IV SCH (11:07)
[2019-02-20] MEDS ORDERED: LORazepam 1 MG tablet PO PRN (11:20)
[2019-02-20] MEDS ORDERED: LORazepam 2 mg/ml vial IV PRN (11:20)
--- NOTE | 2019-02-20 11:33 | NUR ---
reassessment: Pt advanced to full liquids PO increased to 50-75% avg meals. Booker has been d/c. Receiving MVI for etoh hx and electrolyte replacement per protocol. AOx2 s/p TIA per EMR. Will monitor for diet advancement. Recommendations: 1) advance diet per SEISMOGRAPH OPERATOR/MD to regular 2) MVI/thiamin for hx Etoh abuse 3) wt per rx Addendum: 02/20/19 at [address] Amended: Links added.
[2019-02-20] MEDS: MVI, adult No.4 with vit. K 10 ML in dextrose 5% water 500ml 490 ML IV SCH ×2 (13:19)
--- NOTE | 2019-02-20 14:24 | NUR ---
[place]/GI lab: NPO after midnight; readying for scope r/t coffee ground emesis early AM/NOC. Pt feeling nauseated this shift, running low grades fevers. Will continue to monitor
[2019-02-20] MEDS: acetaminophen 325mg tablet PO PRN (17:42)
[2019-02-20 18:00] VITALS: BP 100/81
--- NOTE | 2019-02-20 18:15 | NUR ---
Problems reprioritized. Patient report given, questions answered & plan of care reviewed with berta.
[2019-02-20 22:00] VITALS: BP 98/52
[2019-02-21] VITALS (9 sets, daily range): BP systolic 91–142; BP diastolic 52–78
[2019-02-21] MEDS: sodium chloride 0.45% 1,000 ML IV SCH ×4 (02:27→15:37)
[2019-02-21] MEDS: pantoprazole 40MG/NS 100ML BAG 100 ML IV SCH ×5 (02:36→21:44)
[2019-02-21 06:20] LABS: BASOPHILS % (AUTO) 0.8 % (0-1); EOSINOPHILS # (AUTO) 0.1 X10'3 (0-0.9); EOSINOPHILS % (AUTO) 2.4 % (0-6); HEMATOCRIT 40.7 % (42.0-52.0); HEMOGLOBIN 14.2 g/dl (14.0-17.9); LYMPHOCYTES % (AUTO) 23.4 % (21-51); MEAN CORPUSCULAR HGB CONC 34.9 g/dL (33.0-36.5); MEAN CORPUSCULAR VOLUME 100.5 FL (78-98); MEAN PLATELET VOLUME 9.9 FL (7.4-10.4); MONOCYTES # (AUTO) 0.9 X10'3 (0-0.9); MONOCYTES % (AUTO) 22.8 % (2-12); NEUTROPHILS # (AUTO) 2.1 X10'3 (1.8-7.7); NEUTROPHILS % (AUTO) 50.6 % (42-75); PLATELET COUNT 132 X10'3 (140-440); RED BLOOD COUNT 4.05 X10'6 (4.70-6.10); RED CELL DISTRIBUTION WIDTH 12.3 % (11.5-14.5); WHITE BLOOD COUNT 4.1 X10'3 (4.5-11.0)
[2019-02-21 06:26] LABS: ALANINE AMINOTRANSFERASE 21 U/L (12-78); ALBUMIN 2.7 G/DL (3.4-5.0); ALBUMIN/GLOBULIN RATIO 0.8 (1.1-1.5); ALKALINE PHOSPHATASE 45 IU/L (46-116); ANION GAP 8 (8-16); ASPARTATE AMINO TRANSFERASE 27 U/L (10-37); BILIRUBIN,TOTAL 0.7 MG/DL (0.1-1.0); BLOOD UREA NITROGEN 5 MG/DL (7-18); BUN/CREATININE RATIO 6.8 (5.4-32.0); CALCIUM 8.1 MG/DL (8.5-10.1); CHLORIDE 93 MMOL/L (99-107); CREATININE 0.74 MG/DL (0.60-1.10); GLUCOSE 90 MG/DL (70-104); MAGNESIUM 1.4 MG/DL (1.5-2.4); PHOSPHORUS 3.3 MG/DL (2.3-4.5); POTASSIUM 3.8 MMOL/L (3.5-5.1); SODIUM 126 MMOL/L (135-145); TOTAL CARBON DIOXIDE 24.6 MMOL/L (24-32); TOTAL PROTEIN 6.1 G/DL (6.4-8.2); eGFR > 90 ML/MIN
--- NOTE | 2019-02-21 06:49 | NUR ---
Problems reprioritized. Patient report given, questions answered & plan of care reviewed with YOHANA HAN.
[2019-02-21] MEDS: K, MAG and/or Phos replacement - Verify level? MC SCH (08:00)
[2019-02-21] MEDS: magnesium 2GM in 50ml NS 50 ML IV SCH (08:26)
[2019-02-21] MEDS: MVI, adult No.4 with vit. K 10 ML in dextrose 5% water 500ml 490 ML IV SCH ×2 (08:26)
[2019-02-21] MEDS: Levetiracetam-NS 500mg/100ml 100 ML IV SCH (08:26)
[2019-02-21] MEDS: acetaminophen 325mg tablet PO PRN ×2 (09:54→22:43)
[2019-02-21 11:02] LABS: TOTAL CELLS COUNTED 100
[2019-02-21 11:06] LABS: PLATELET ESTIMATE DECREASED
[2019-02-21 11:19] LABS: SMUDGE CELLS 1+; TOXIC GRANULATION 2+; TOXIC VACUOLATION 3+
[2019-02-21] MEDS ORDERED: fentaNYL/PF 50MCG/1 ML 2ML syringe ONE (12:03)
[2019-02-21] MEDS ORDERED: MIDAZolam 5mg/5ml vial ONE (12:03)
[2019-02-21] MEDS ORDERED: LIDOcaine Viscous 15ml cup ONE (12:03)
[2019-02-21] MEDS ORDERED: furosemide 40mg/4ml inj IV ONE (17:45)
--- NOTE | 2019-02-21 18:44 | NUR ---
Patient in room [facility]TH[facility] 4010. I have received report from YOHANA HAN and had the opportunity to ask questions and assume patient care.
[2019-02-21] MEDS: levetiracetam 250mg tablet PO SCH (19:28)
[2019-02-21] MEDS: Potassium Cl inj 20 MEQ in normal saline 1000ml 990 ML IV SCH (19:28)
[2019-02-22] MEDS: pantoprazole 40MG/NS 100ML BAG 100 ML IV SCH ×2 (01:06→10:00)
--- NOTE | 2019-02-22 04:35 | NUR ---
pt suddenly got up and seemed to be confused. he was going to go across the street and didn't know where he was. pt was easily reoriented. will monitor.
[2019-02-22] MEDS: Potassium Cl inj 20 MEQ in normal saline 1000ml 990 ML IV SCH (05:27)
--- NOTE | 2019-02-22 06:12 | NUR ---
Problems reprioritized. Patient report given, questions answered & plan of care reviewed with shalini Denney.
[2019-02-22 06:26] LABS: EOSINOPHILS # (AUTO) 0.1 X10'3 (0-0.9); EOSINOPHILS % (AUTO) 3.3 % (0-6); HEMATOCRIT 43.6 % (42.0-52.0); HEMOGLOBIN 15.3 g/dl (14.0-17.9); LYMPHOCYTES # (AUTO) 1.2 X10'3 (1.1-4.8); LYMPHOCYTES % (AUTO) 32.7 % (21-51); MEAN CORPUSCULAR HEMOGLOBIN 35.2 PG (27.0-31.0); MEAN CORPUSCULAR VOLUME 100.6 FL (78-98); MEAN PLATELET VOLUME 9.8 FL (7.4-10.4); MONOCYTES % (AUTO) 26.9 % (2-12); NEUTROPHILS # (AUTO) 1.3 X10'3 (1.8-7.7); NEUTROPHILS % (AUTO) 36.1 % (42-75); PLATELET COUNT 152 X10'3 (140-440); RED BLOOD COUNT 4.34 X10'6 (4.70-6.10); RED CELL DISTRIBUTION WIDTH 12.4 % (11.5-14.5); WHITE BLOOD COUNT 3.6 X10'3 (4.5-11.0)
[2019-02-22 06:28] LABS: ALANINE AMINOTRANSFERASE 26 U/L (12-78); ALBUMIN/GLOBULIN RATIO 0.8 (1.1-1.5); ALKALINE PHOSPHATASE 47 IU/L (46-116); ANION GAP 12 (8-16); ASPARTATE AMINO TRANSFERASE 24 U/L (10-37); BILIRUBIN,TOTAL 0.6 MG/DL (0.1-1.0); BLOOD UREA NITROGEN 6 MG/DL (7-18); CALCIUM 8.6 MG/DL (8.5-10.1); CHLORIDE 94 MMOL/L (99-107); CREATININE 0.75 MG/DL (0.60-1.10); GLUCOSE 87 MG/DL (70-104); MAGNESIUM 1.5 MG/DL (1.5-2.4); PHOSPHORUS 3.6 MG/DL (2.3-4.5); POTASSIUM 4.2 MMOL/L (3.5-5.1); SODIUM 129 MMOL/L (135-145); TOTAL CARBON DIOXIDE 23.4 MMOL/L (24-32); TOTAL PROTEIN 6.8 G/DL (6.4-8.2); eGFR > 90 ML/MIN
[2019-02-22 06:48] VITALS: BP 134/78
[2019-02-22] MEDS: levetiracetam 250mg tablet PO SCH (07:16)
[2019-02-22] MEDS: MVI, adult No.4 with vit. K 10 ML in dextrose 5% water 500ml 490 ML IV SCH ×2 (07:16)
[2019-02-22] MEDS: magnesium 2GM in 50ml NS 50 ML IV SCH (07:17)
[2019-02-22] MEDS: K, MAG and/or Phos replacement - Verify level? MC SCH (07:17)
[2019-02-22] MEDS ORDERED: THIA100T66 PO (09:30)
[2019-02-22] MEDS ORDERED: MULT-933 PO (09:32)
[2019-02-22] MEDS ORDERED: FOLI1TAB16 PO (09:32)
[2019-02-22 10:08] VITALS: BP 107/62
[2019-02-22 11:55] LABS: TOTAL CELLS COUNTED 100
[2019-02-22 11:56] LABS: PLATELET ESTIMATE NORMAL; TOXIC GRANULATION 2+; TOXIC VACUOLATION 1+
[2019-02-22 11:59] LABS: SMUDGE CELLS 1+
== END 2019-02-22 12:10 | disposition home or self-care (01) | DRG 100 ==
LOC: ER 10:03 → CICU 2S 15:46 → CMPBEDREQ 19:47 → ORTHO 4S 02-18 14:05
PROVIDERS: ADMIT Internal Medicine Critical Care Medicine; ATTEND Internal Medicine Critical Care Medicine
PROC: B3251ZZ Computerized Tomography (CT Scan) of Bilateral Common Carotid Arteries using Low Osmolar Contrast (ICD-10-PCS; 2019-02-14)
PROC: B32R1ZZ Computerized Tomography (CT Scan) of Intracranial Arteries using Low Osmolar Contrast (ICD-10-PCS; 2019-02-14)
PROC: B3281ZZ Computerized Tomography (CT Scan) of Bilateral Internal Carotid Arteries using Low Osmolar Contrast (ICD-10-PCS; 2019-02-14)
PROC: 0DB68ZX Excision of Stomach, Via Natural or Artificial Opening Endoscopic, Diagnostic (ICD-10-PCS; principal; 2019-02-21)
DX: G40.909 Epilepsy, unspecified, not intractable, without status epilepticus (principal); K29.61 Other gastritis with bleeding; G81.91 Hemiplegia, unspecified affecting right dominant side; K92.0 Hematemesis; E87.1 Hypo-osmolality and hyponatremia; I10 Essential (primary) hypertension; F10.20 Alcohol dependence, uncomplicated; G89.29 Other chronic pain; Z88.0 Allergy status to penicillin; Z59.0 Homelessness
CPT/HCPCS: 36415; 43239; 70450; 70496; 70498; 70544; 70551; 71045; 74018; 80053; 80177; 80305; 80320; 81001; 82140; 82150; 82271; 82272; 82948; 83605; 83690; 83735; 84100; 84145; 84443; 84484; 85025; 85610; 85730; 86885; 86900; 86901; 87040; 87081; 88305; 93005; 96365; 96375; 96376; 99152; 99285; A4620; C9113; G0378; J0131; J1650; J1940; J1953; J2060; J2250; J2405; J3010; J3411; J3475; J3480; J3486; J3490; J7030; J7040; J7060; J8597; Q9967

== ENCOUNTER 2020-05-17 10:05 | Emergency (ER) | payer MEDICARE, MEDICAID ==
[~2020-05-17] VITALS: Ht 177.8 cm; Wt 75.0 kg
[~2020-05-17 10:05] MED LIST changes: -CEPH250C PO; -HYDR-3964 PO; +HYDR-3973 PO; -MULT-1179 PO; +MULT-25 PO; +MULT-933 PO; -NAPR-1154 PO; -SYN0.088T PO; -THI100T PO; +THIA100T66 PO
[2020-05-17] MEDS ORDERED: normal saline 1000ML IV soln IVB ONE (10:15)
[2020-05-17 10:40] LABS: BASOPHILS % (AUTO) 0.3 % (0-1); EOSINOPHILS % (AUTO) 0.3 % (0-6); HEMATOCRIT 48.4 % (42.0-52.0); HEMOGLOBIN 16.6 g/dl (14.0-17.9); LYMPHOCYTES # (AUTO) 0.4 X10'3 (1.1-4.8); LYMPHOCYTES % (AUTO) 5.8 % (21-51); MEAN CORPUSCULAR HEMOGLOBIN 35.3 PG (27.0-31.0); MEAN CORPUSCULAR HGB CONC 34.3 g/dL (33.0-36.5); MONOCYTES # (AUTO) 0.6 X10'3 (0-0.9); MONOCYTES % (AUTO) 9.8 % (2-12); NEUTROPHILS # (AUTO) 5.1 X10'3 (1.8-7.7); NEUTROPHILS % (AUTO) 83.8 % (42-75); PLATELET COUNT 126 X10'3 (140-440); RED CELL DISTRIBUTION WIDTH 15.7 % (11.5-14.5); WHITE BLOOD COUNT 6.1 X10'3 (4.5-11.0)
[2020-05-17 11:02] LABS: ALANINE AMINOTRANSFERASE 33 U/L (12-78); ALBUMIN 3.7 G/DL (3.4-5.0); ALKALINE PHOSPHATASE 65 IU/L (46-116); ANION GAP 17 (8-16); ASPARTATE AMINO TRANSFERASE 49 U/L (10-37); BILIRUBIN,TOTAL 0.8 MG/DL (0.1-1.0); BLOOD UREA NITROGEN 9 MG/DL (7-18); BUN/CREATININE RATIO 9.6 (5.4-32.0); CALCIUM 8.4 MG/DL (8.5-10.1); CHLORIDE 102 MMOL/L (99-107); CREATININE 0.94 MG/DL (0.60-1.10); ETHANOL 0.063 GM/DL (0.0-0.010); GLUCOSE 139 MG/DL (70-104); POTASSIUM 3.5 MMOL/L (3.5-5.1); SODIUM 142 MMOL/L (135-145); TOTAL CARBON DIOXIDE 23.1 MMOL/L (24-32); TOTAL PROTEIN 7.4 G/DL (6.4-8.2); eGFR 81 ML/MIN
--- NOTE | 2020-05-17 12:23 | NUR ---
Phoned pt's family and left a message that the patient is ready for discharge to home.
[2020-05-17 12:52] LABS: CLARITY,URINE CLEAR (Clear); COLOR,URINE YELLOW (Yellow); GLUCOSE, URINE NEGATIVE (Neg); KETONES,URINE NEGATIVE (Neg); LEUKOCYTE ESTERASE ,URINE NEGATIVE (Neg); NITRITES, URINE NEGATIVE (Neg); OCCULT BLOOD,URINE NEGATIVE (Neg); PROTEIN,URINE NEGATIVE (Neg); UROBILINOGEN,URINE 0.2 E.U/dL (0.2-1.0)
[2020-05-17 12:53] VITALS: BP 147/101
[2020-05-17 12:54] LABS: UA COLLECTION TYPE CLN CATCH MIDSTREAM
[2020-05-17 13:04] LABS: URINE AMPHETAMINE SCREEN NEGATIVE (Neg); URINE BARBITUATE SCREEN NEGATIVE (Neg); URINE BENZODIAZEPINES SCREEN NEGATIVE (Neg); URINE CANNABINOID SCREEN NEGATIVE (Neg); URINE COCAINE SCREEN NEGATIVE (Neg); URINE METHADONE SCREEN NEGATIVE (Neg); URINE OPIATE SCREEN NEGATIVE (Neg); URINE PHENCYCLIDINE SCREEN NEGATIVE (Neg)
== END 2020-05-17 12:55 | disposition home or self-care (01) ==
LOC: ER 10:05
DX: F10.129 Alcohol abuse with intoxication, unspecified (principal); R41.82 Altered mental status, unspecified; I10 Essential (primary) hypertension; G89.29 Other chronic pain; Z86.69 Personal history of other diseases of the nervous system and sense organs; Z98.890 Other specified postprocedural states; Z88.0 Allergy status to penicillin; Z79.899 Other long term (current) drug therapy; Y90.0 Blood alcohol level of less than 20 mg/100 ml
CPT/HCPCS: 36415; 70450; 71045; 72125; 80053; 80305; 80320; 81003; 82140; 85025; 93005; 96360; 99285; J7030

== ENCOUNTER 2020-10-01 15:41 | Emergency (ER) | payer MEDICARE, MEDICAID ==
[~2020-10-01] VITALS: Ht 177.8 cm; Wt 80.9 kg
[2020-10-01 16:48] LABS: ALANINE AMINOTRANSFERASE 22 U/L (12-78); ALBUMIN 3.9 G/DL (3.4-5.0); ALBUMIN/GLOBULIN RATIO 1.1 (1.1-1.5); ALKALINE PHOSPHATASE 72 IU/L (46-116); ANION GAP 9 (8-16); ASPARTATE AMINO TRANSFERASE 29 U/L (10-37); BILIRUBIN,TOTAL 0.3 MG/DL (0.1-1.0); BLOOD UREA NITROGEN 8 MG/DL (7-18); BUN/CREATININE RATIO 10.5 (5.4-32.0); CALCIUM 8.3 MG/DL (8.5-10.1); CHLORIDE 107 MMOL/L (99-107); CREATININE 0.76 MG/DL (0.60-1.10); GLUCOSE 105 MG/DL (70-104); POTASSIUM 4.2 MMOL/L (3.5-5.1); SODIUM 144 MMOL/L (135-145); TOTAL CARBON DIOXIDE 27.6 MMOL/L (24-32); TOTAL PROTEIN 7.4 G/DL (6.4-8.2); eGFR > 90 ML/MIN
[2020-10-01 16:51] LABS: ETHANOL 0.372 GM/DL (0.0-0.010)
--- NOTE | 2020-10-01 18:55 | NUR ---
PT WAS AMBULATING DOWN THE HALLWAY. HE WAS KINDLY ASKED TO RETURN TO HIS ROOM HE IS STILL A PATIENT. PT WALKED BACK TO ROOM AND IS SITTING ON [facility]. AT BEDSIDE FOR RE-EVAL
--- NOTE | 2020-10-01 19:00 | NUR ---
CONTACTED MIRANDA ([facility] EMERGENCY CONTACT ON FILE) SHE IS GOING TO COME AND GET PATIENT.
[2020-10-01 19:35] VITALS: BP 131/96
== END 2020-10-01 19:30 | disposition home or self-care (01) ==
LOC: ER 15:42
DX: F10.129 Alcohol abuse with intoxication, unspecified (principal); G40.909 Epilepsy, unspecified, not intractable, without status epilepticus; I10 Essential (primary) hypertension; G89.29 Other chronic pain; Z87.81 Personal history of (healed) traumatic fracture; Z71.89 Other specified counseling; Z88.0 Allergy status to penicillin; Z79.899 Other long term (current) drug therapy; Z72.89 Other problems related to lifestyle; Y90.8 Blood alcohol level of 240 mg/100 ml or more
CPT/HCPCS: 36415; 80053; 80320; 82948; 93005; 99284

== ENCOUNTER 2022-05-29 14:11 | Emergency (ER) | payer BC, MEDICAID ==
[~2022-05-29] VITALS: Ht 177.8 cm; Wt 75.0 kg
[~2022-05-29 14:11] MED LIST changes: -FOLI1TAB16 PO; +FOLI1TAB27 PO
[2022-05-29 15:04] LABS: BASOPHILS % (AUTO) 0.7 % (0-1); EOSINOPHILS % (AUTO) 0.4 % (0-6); HEMATOCRIT 45.9 % (42.0-52.0); HEMOGLOBIN 15.6 g/dl (14.0-17.9); LYMPHOCYTES # (AUTO) 1.2 X10'3 (1.1-4.8); LYMPHOCYTES % (AUTO) 17.6 % (21-51); MEAN CORPUSCULAR HEMOGLOBIN 34.6 PG (27.0-31.0); MEAN CORPUSCULAR HGB CONC 33.9 g/dL (33.0-36.5); MEAN CORPUSCULAR VOLUME 102.1 FL (78-98); MONOCYTES # (AUTO) 0.8 X10'3 (0-0.9); MONOCYTES % (AUTO) 12.1 % (2-12); NEUTROPHILS # (AUTO) 4.6 X10'3 (1.8-7.7); NEUTROPHILS % (AUTO) 69.2 % (42-75); PLATELET COUNT 230 X10'3 (140-440); RED CELL DISTRIBUTION WIDTH 13.5 % (11.5-14.5); WHITE BLOOD COUNT 6.7 X10'3 (4.5-11.0)
[2022-05-29 15:22] LABS: ALANINE AMINOTRANSFERASE 15 U/L (12-78); ALBUMIN 3.4 G/DL (3.4-5.0); ALBUMIN/GLOBULIN RATIO 0.8 (1.1-1.5); ALKALINE PHOSPHATASE 89 IU/L (46-116); ANION GAP 10 (8-16); ASPARTATE AMINO TRANSFERASE 23 U/L (10-37); BILIRUBIN,TOTAL 0.8 MG/DL (0.1-1.0); BLOOD UREA NITROGEN 13 MG/DL (7-18); BUN/CREATININE RATIO 11.4 (5.4-32.0); CHLORIDE 100 MMOL/L (99-107); CREATININE 1.14 MG/DL (0.60-1.10); GLUCOSE 91 MG/DL (70-104); POTASSIUM 4.5 MMOL/L (3.5-5.1); SODIUM 136 MMOL/L (135-145); TOTAL CARBON DIOXIDE 26.3 MMOL/L (24-32); TOTAL PROTEIN 7.7 G/DL (6.4-8.2); eGFR 64 ML/MIN
[2022-05-29] MEDS ORDERED: clindamycin 600mg/D5W 50ml 50 ML IV ONE (20:10)
[2022-05-29] MEDS ORDERED: normal saline 1000ML IV soln IVB ONE (20:10)
[2022-05-29] MEDS ORDERED: iohexol 300mg/ml 100ml inj. ONE (20:14)
[2022-05-29] MEDS ORDERED: acetaminophen 325mg tablet PO ONE (20:15)
[2022-05-29] MEDS ORDERED: ketorolac trometh. 30mg/ml inj. IV ONE (20:15)
[2022-05-29] MEDS ORDERED: CLIN150C8 PO ×2 (21:16→21:17)
[2022-05-29 23:46] VITALS: BP 146/84
== END 2022-05-29 21:30 | disposition home or self-care (01) ==
LOC: ER 14:11
DX: L03.90 Cellulitis, unspecified (principal); I10 Essential (primary) hypertension; G89.29 Other chronic pain; Z87.81 Personal history of (healed) traumatic fracture; Z88.0 Allergy status to penicillin; Z79.899 Other long term (current) drug therapy
CPT/HCPCS: 36415; 71045; 73201; 80053; 83605; 84145; 85025; 87040; 96365; 96375; 99285; J1885; J3490; J7030; Q9967; A6258

== ENCOUNTER 2023-01-28 16:45 | Inpatient (IN) | payer BC, MEDICAID ==
[~2023-01-28] VITALS: Ht 180.3 cm; Wt 72.0 kg
[2023-01-28] VITALS (10 sets, daily range): BP systolic 83–142; BP diastolic 58–97
[~2023-01-28 16:45] MED LIST changes: +CLIN-214 PO; +etomidate 2mg/ml inj. ONE; +rocuronium 10mg/ml inj IV ONE
[2023-01-28] MEDS ORDERED: LORazepam 2 mg/ml vial ONE (16:59)
--- NOTE | 2023-01-28 17:01 | NUR ---
PT STILL SEIZING - VERBAL FOR 2MG ATIVAN REC'D - PULLED MEDS AND HANDED OFF TO PRIMARY RN AND ENTERED ORDER
[2023-01-28] MEDS ORDERED: LORazepam 2 mg/ml vial IV ONE (17:05)
--- NOTE | 2023-01-28 17:06 | NUR ---
Patient had episode of seizure witnessed by RNs and Dr. Schuster at bedside. Ativan 2 mg IV was given. Pt O2 sat dropped to 82% even on 3 lpm/nc. Ptwas placed into 15 lpm NRB mask immediately
--- NOTE | 2023-01-28 17:07 | NUR ---
Dr. Schuster at bedside and other staff. Preparing patient for intubation
--- NOTE | 2023-01-28 17:09 | NUR ---
Patient was given Etomidate 20 mg and 100 mg of Rocuronium Addendum: 01/28/23 at 1812 by ASAEL this was given by another RN prior to RSI
--- NOTE | 2023-01-28 17:11 | NUR ---
Intubation ongoing. Dr. Schuster and ROMAN Dai. RT at bedside assisting
--- NOTE | 2023-01-28 17:14 | NUR ---
ET tube 8.[address] Schuster Addendum: 01/28/23 at 1753 by ASAEL OGT was insered after the intubation. Temp lott cath inserted. Bilateral wrist restraints were applied due to being intubated
[2023-01-28 17:22] LABS: HEMOGLOBIN 14.5 g/dl (14.0-17.9); LYMPHOCYTES # (AUTO) 0.6 X10'3 (1.1-4.8)
[2023-01-28 17:24] LABS: BASOPHILS % (AUTO) 0.8 % (0-1); EOSINOPHILS % (AUTO) 0.9 % (0-6); HEMATOCRIT 41.3 % (42.0-52.0); LYMPHOCYTES % (AUTO) 15.3 % (21-51); MEAN CORPUSCULAR HEMOGLOBIN 36.6 PG (27.0-31.0); MEAN CORPUSCULAR HGB CONC 35.1 g/dL (33.0-36.5); MEAN CORPUSCULAR VOLUME 104.4 FL (78-98); MONOCYTES # (AUTO) 0.5 X10'3 (0-0.9); MONOCYTES % (AUTO) 12.1 % (2-12); NEUTROPHILS # (AUTO) 2.8 X10'3 (1.8-7.7); NEUTROPHILS % (AUTO) 70.9 % (42-75); PLATELET COUNT 137 X10'3 (140-440); RED BLOOD COUNT 3.96 X10'6 (4.70-6.10)
[2023-01-28] MEDS ORDERED: propofol 1000mg/100ml bottle 100 ML IV ONE (17:24)
[2023-01-28] MEDS ORDERED: propofol 1000mg/100ml bottle 100 ML IV SCH (17:25)
[2023-01-28 17:27] LABS: ALANINE AMINOTRANSFERASE 34 U/L (12-78); ALBUMIN 3.5 G/DL (3.4-5.0); ALBUMIN/GLOBULIN RATIO 0.9 (1.1-1.5); ALKALINE PHOSPHATASE 111 IU/L (46-116); ANION GAP 13 (8-16); ASPARTATE AMINO TRANSFERASE 73 U/L (10-37); BILIRUBIN,TOTAL 1.2 MG/DL (0.1-1.0); BLOOD UREA NITROGEN 13 MG/DL (7-18); BUN/CREATININE RATIO 10.8 (10.0-20.0); CALCIUM 8.6 MG/DL (8.5-10.1); CHLORIDE 105 MMOL/L (99-107); GLUCOSE 160 MG/DL (70-104); POTASSIUM 3.9 MMOL/L (3.5-5.1); SODIUM 143 MMOL/L (135-145); TOTAL CARBON DIOXIDE 24.9 MMOL/L (24-32); TOTAL PROTEIN 7.2 G/DL (6.4-8.2); eGFR 61 ML/MIN
--- NOTE | 2023-01-28 17:28 | NUR ---
RESP AT BEDSIDE FOR ABG - HOB AT 30
[2023-01-28] MEDS ORDERED: phenytoin sod 50mg/ml 2ml vial IV STA (17:29)
[2023-01-28 17:33] LABS: ETHANOL < 0.010 GM/DL (0.0-0.010)
[2023-01-28 17:34] LABS: ABG BASE EXCESS -2.1 mmol/L (-2.0-2.0); ABG OXYGEN SATURATION 95.3 % (94-97); ABG PCO2 (T) 31.8 mmHg (35.0-48.0); ABG PO2 (T) 77.6 mmHg (75.0-100.0); ALLEN'S TEST POSITIVE; FCOHb 0.7 % (0.0-3.9); FMetHb 0.3 % (0.0-1.5); FO2Hb 94.3 % (94-97); PEEP 8 cm H2O; RESPIRATORY RATE 18 b/min; TIDAL VOLUME 400 mL; TOTAL HEMOGLOBIN 15.3 G/dl (14.0-17.9)
[2023-01-28 17:45] LABS: CLARITY,URINE SLIGHTLY CLOUDY (Clear); COLOR,URINE YELLOW (Yellow); GLUCOSE, URINE NEGATIVE (Neg); KETONES,URINE NEGATIVE (Neg); LEUKOCYTE ESTERASE ,URINE NEGATIVE (Neg); NITRITES, URINE NEGATIVE (Neg); OCCULT BLOOD,URINE NEGATIVE (Neg); PROTEIN,URINE 100 mg/dl (Neg); UROBILINOGEN,URINE 0.2 E.U/dL (0.2-1.0)
[2023-01-28 17:46] LABS: UA COLLECTION TYPE FOLEY CATH
--- NOTE | 2023-01-28 17:52 | NUR ---
Patient back to the room from CT scan
[2023-01-28] MEDS ORDERED: phenytoin sod inj 1,000 MG in normal saline 100ml IV soln 80 ML IV ONE (17:55)
[2023-01-28 17:59] LABS: MUCUS STRANDS MODERATE /LPF (Neg); SQUAMOUS EPITHELIAL CELL,UR FEW /LPF (FEW)
[2023-01-28 18:00] LABS: BACTERIA,URINE FEW /HPF (Neg); RBC,URINE 0-2 /HPF (0-2); TRANSITIONAL EPI CELLS,URINE FEW /HPF
[2023-01-28 18:02] LABS: WBC,URINE 0-4 /HPF (0-4)
[2023-01-28 18:07] LABS: URINE AMPHETAMINE SCREEN NEGATIVE (Neg); URINE BARBITUATE SCREEN NEGATIVE (Neg); URINE BENZODIAZEPINES SCREEN POSITIVE (Neg); URINE CANNABINOID SCREEN NEGATIVE (Neg); URINE COCAINE SCREEN NEGATIVE (Neg); URINE METHADONE SCREEN NEGATIVE (Neg); URINE OPIATE SCREEN NEGATIVE (Neg); URINE PHENCYCLIDINE SCREEN NEGATIVE (Neg)
[2023-01-28 18:17] LABS: PHENYTOIN (DILANTIN) < 0.5 UG/ML (10.0-20.0)
[2023-01-28] MEDS ORDERED: magnesium hydroxide 30ml (MOM) UD suspension PO PRN (19:15)
[2023-01-28] MEDS: sodium chloride 0.45% 1,000 ML IV SCH (19:15)
[2023-01-28] MEDS ORDERED: ondansetron/PF 4mg/2ml inj IV PRN (19:15)
[2023-01-28] MEDS ORDERED: LidoCAINE 2% Topical Jelly 11mL syringe TOP ONE (19:35)
[2023-01-28] MEDS: propofol 1000mg/100ml bottle 100 ML IV SCH (20:47)
[2023-01-28] MEDS: thiamine 100mg/ml 2ml inj. IM SCH (20:49)
[2023-01-28] MEDS: levetiracetam inj 750 MG in normal saline 100ml IV soln 100 ML IV SCH (20:51)
[2023-01-28] MEDS: FENTANYL-0.9 % NACL/PF 100 ML IV PRN (20:51)
[2023-01-29] VITALS (33 sets, daily range): BP systolic 83–136; BP diastolic 55–98
[2023-01-29 02:58] LABS: ABG BASE EXCESS 2.1 mmol/L (-2.0-2.0); ABG HCO3 23.7 mmol/L (22.0-26.0); ABG OXYGEN SATURATION 94.2 % (94-97); ALLEN'S TEST Modified; FCOHb 0.1 % (0.0-3.9); FMetHb 0.3 % (0.0-1.5); FO2Hb 93.8 % (94-97); PATIENT TEMPERATURE 37.1; PEEP 5 cm H2O; RESPIRATORY RATE 18 b/min; TIDAL VOLUME 400 mL; TOTAL HEMOGLOBIN 13.9 G/dl (14.0-17.9)
[2023-01-29] MEDS: propofol 1000mg/100ml bottle 100 ML IV SCH ×4 (03:45→22:54)
[2023-01-29 06:21] LABS: EOSINOPHILS # (AUTO) 0.1 X10'3 (0-0.9); MEAN CORPUSCULAR HEMOGLOBIN 36.9 PG (27.0-31.0); MONOCYTES # (AUTO) 0.7 X10'3 (0-0.9); NEUTROPHILS # (AUTO) 4.2 X10'3 (1.8-7.7); RED CELL DISTRIBUTION WIDTH 14.9 % (11.5-14.5)
[2023-01-29 06:23] LABS: BASOPHILS % (AUTO) 0.7 % (0-1); EOSINOPHILS % (AUTO) 1.1 % (0-6); HEMATOCRIT 42.8 % (42.0-52.0); HEMOGLOBIN 14.7 g/dl (14.0-17.9); LYMPHOCYTES # (AUTO) 1.3 X10'3 (1.1-4.8); MEAN CORPUSCULAR HGB CONC 34.4 g/dL (33.0-36.5); MEAN CORPUSCULAR VOLUME 107.3 FL (78-98); MEAN PLATELET VOLUME 8.3 FL (7.4-10.4); MONOCYTES % (AUTO) 11.8 % (2-12); NEUTROPHILS % (AUTO) 66.4 % (42-75); PLATELET COUNT 105 X10'3 (140-440); RED BLOOD COUNT 3.99 X10'6 (4.70-6.10); WHITE BLOOD COUNT 6.3 X10'3 (4.5-11.0)
[2023-01-29 06:41] LABS: ALANINE AMINOTRANSFERASE 28 U/L (12-78); ALBUMIN 3.2 G/DL (3.4-5.0); ALBUMIN/GLOBULIN RATIO 0.9 (1.1-1.5); ALKALINE PHOSPHATASE 106 IU/L (46-116); ANION GAP 13 (8-16); ASPARTATE AMINO TRANSFERASE 62 U/L (10-37); BILIRUBIN,TOTAL 1.4 MG/DL (0.1-1.0); BLOOD UREA NITROGEN 11 MG/DL (7-18); BUN/CREATININE RATIO 11.6 (10.0-20.0); CALCIUM 8.6 MG/DL (8.5-10.1); CHLORIDE 106 MMOL/L (99-107); CREATININE 0.95 MG/DL (0.60-1.10); GLUCOSE 110 MG/DL (70-104); MAGNESIUM 1.6 MG/DL (1.5-2.4); PHOSPHORUS 2.4 MG/DL (2.3-4.5); POTASSIUM 3.8 MMOL/L (3.5-5.1); SODIUM 143 MMOL/L (135-145); TOTAL CARBON DIOXIDE 24.4 MMOL/L (24-32); TOTAL PROTEIN 6.8 G/DL (6.4-8.2); TRIGLYCERIDES 124 MG/DL (20-135); eGFR 79 ML/MIN
[2023-01-29 07:04] LABS: PLATELET ESTIMATE DECREASED; TOTAL CELLS COUNTED 100
[2023-01-29] MEDS: pantoprazole 40MG/NS 100ML BAG 100 ML IV SCH (08:03)
[2023-01-29] MEDS: levetiracetam inj 750 MG in normal saline 100ml IV soln 100 ML IV SCH ×2 (08:03→20:11)
[2023-01-29] MEDS: enoxaparin 40mg/0.4ml syringe SUBCUT SCH (08:03)
[2023-01-29] MEDS: folic acid 1mg/0.2ml inj IV SCH (08:03)
[2023-01-29] MEDS: thiamine 100mg/ml 2ml inj. IM SCH ×2 (08:04→20:11)
[2023-01-29] MEDS ORDERED: multi-vitamin w/minerals & ferrous gluconate 9 MG/15 ML oral LIQUID PO SCH (10:37)
--- NOTE | 2023-01-29 10:58 | NUR ---
TF consult: Pt admit for acute respiratory failure with hypoxia and seizure activity. Pt intubated and sedated with Propofol running at 12.27 mL/hr providing 324 kcal/day. NGT in place, see TF recs below. MD requests no water flushes as pt currently receiving 1/2 NS at 75 mL/hr. Per EMR pt with EtOH hx and elevated MCV 107.3, pt receiving routine Thiamine, Folic acid, and MVM with Iron. No documented BM since admit, PRN bowel care available. Will continue to follow closely. Recommendations: 1) Given Propofol at 12.27 mL/hr (324 kcal/day), continuous Vital AF with 65 mL/hr goal rate to provide 1560 mL total volume/day, 1872 kcal, 117 g protein, and 1265 mL water 2) Monitor Propofol rate and need to adjust TF recs; IF Propofol discontinued increase TF goal rate to 75 mL/hr 3) Per MD no water flushes as pt receiving 1/2 NS at 75 mL/hr; monitor serum Na 4) Prealbumin q Wednesday/ 5) Routine Thiamine, Folic acid, and MVM with Iron d/t EtOH hx with elevated MCV 6) Daily scaled weights 7) Routine bowel care Addendum: 01/29/23 at [address] Amended: Links added.
[2023-01-29] MEDS: sodium chloride 0.45% 1,000 ML IV SCH (11:09)
[2023-01-29] MEDS ORDERED: multi-vitamin w/minerals & ferrous gluconate 9 MG/15 ML oral LIQUID OGT SCH (11:26)
[2023-01-29] MEDS ORDERED: magnesium hydroxide 30ml (MOM) UD suspension OGT PRN (11:27)
[2023-01-29] MEDS ORDERED: ALEN70TA37 PO (13:43)
[2023-01-29] MEDS ORDERED: HYDR-3972 PO (13:43)
[2023-01-29] MEDS ORDERED: OMEP20CA16 PO (13:43)
[2023-01-29] MEDS ORDERED: PROP10TA10 PO (13:43)
[2023-01-29] MEDS: mineral oil/petrolatum ophthal oint EACHEYE SCH (20:11)
[2023-01-30] VITALS (29 sets, daily range): BP systolic 90–139; BP diastolic 56–92
[2023-01-30] MEDS: sodium chloride 0.45% 1,000 ML IV SCH (01:13)
[2023-01-30] MEDS: mineral oil/petrolatum ophthal oint EACHEYE SCH ×4 (02:12→20:00)
[2023-01-30 03:19] LABS: ABG BASE EXCESS 1.3 mmol/L (-2.0-2.0); ABG HCO3 24.7 mmol/L (22.0-26.0); ABG OXYGEN SATURATION 94.4 % (94-97); ABG PCO2 (T) 34.5 mmHg (35.0-48.0); ABG PO2 (T) 69.2 mmHg (75.0-100.0); ALLEN'S TEST Modified; FCOHb 0.3 % (0.0-3.9); FMetHb 0.4 % (0.0-1.5); FO2Hb 93.7 % (94-97); PATIENT TEMPERATURE 36.5; PEEP 5 cm H2O; RESPIRATORY RATE 14 b/min; TIDAL VOLUME 400 mL; TOTAL HEMOGLOBIN 13.5 G/dl (14.0-17.9)
[2023-01-30 04:24] LABS: BASOPHILS # (AUTO) 0.1 X10'3 (0-0.2); BASOPHILS % (AUTO) 1.4 % (0-1); EOSINOPHILS # (AUTO) 0.1 X10'3 (0-0.9); HEMATOCRIT 39.6 % (42.0-52.0); HEMOGLOBIN 13.5 g/dl (14.0-17.9); LYMPHOCYTES # (AUTO) 1.4 X10'3 (1.1-4.8); LYMPHOCYTES % (AUTO) 17.6 % (21-51); MEAN CORPUSCULAR HEMOGLOBIN 36.4 PG (27.0-31.0); MEAN CORPUSCULAR VOLUME 107.1 FL (78-98); MEAN PLATELET VOLUME 8.6 FL (7.4-10.4); MONOCYTES # (AUTO) 1.3 X10'3 (0-0.9); MONOCYTES % (AUTO) 16.1 % (2-12); NEUTROPHILS # (AUTO) 5.2 X10'3 (1.8-7.7); NEUTROPHILS % (AUTO) 63.9 % (42-75); PLATELET COUNT 81 X10'3 (140-440); RED CELL DISTRIBUTION WIDTH 15.1 % (11.5-14.5); WHITE BLOOD COUNT 8.2 X10'3 (4.5-11.0)
[2023-01-30] MEDS: FENTANYL-0.9 % NACL/PF 100 ML IV PRN ×3 (05:34→10:53)
[2023-01-30 05:58] LABS: ALANINE AMINOTRANSFERASE 19 U/L (12-78); ALBUMIN 2.3 G/DL (3.4-5.0); ALBUMIN/GLOBULIN RATIO 0.7 (1.1-1.5); ALKALINE PHOSPHATASE 80 IU/L (46-116); ANION GAP 10 (8-16); ASPARTATE AMINO TRANSFERASE 35 U/L (10-37); BILIRUBIN,TOTAL 0.9 MG/DL (0.1-1.0); BLOOD UREA NITROGEN 7 MG/DL (7-18); BUN/CREATININE RATIO 6.5 (10.0-20.0); CALCIUM 7.4 MG/DL (8.5-10.1); CHLORIDE 106 MMOL/L (99-107); CREATININE 1.08 MG/DL (0.60-1.10); GLUCOSE 109 MG/DL (70-104); MAGNESIUM 1.2 MG/DL (1.5-2.4); PHOSPHORUS 2.7 MG/DL (2.3-4.5); POTASSIUM 3.3 MMOL/L (3.5-5.1); SODIUM 139 MMOL/L (135-145); TOTAL CARBON DIOXIDE 23.5 MMOL/L (24-32); TOTAL PROTEIN 5.4 G/DL (6.4-8.2); eGFR 68 ML/MIN
[2023-01-30 06:16] LABS: PLATELET ESTIMATE DECREASED; TOTAL CELLS COUNTED 100
[2023-01-30] MEDS ORDERED: potassium Cl 20 mEq SR tablet PO PRN (06:50)
[2023-01-30] MEDS: enoxaparin 40mg/0.4ml syringe SUBCUT SCH (08:00)
[2023-01-30] MEDS: K and/or MAG REPLACEMENT MC SCH (08:00)
[2023-01-30] MEDS: pantoprazole 40MG/NS 100ML BAG 100 ML IV SCH (08:49)
[2023-01-30] MEDS: thiamine 100mg/ml 2ml inj. IM SCH ×2 (08:50→19:40)
[2023-01-30] MEDS: levetiracetam inj 750 MG in normal saline 100ml IV soln 100 ML IV SCH ×2 (08:50→19:39)
[2023-01-30] MEDS: folic acid 1mg/0.2ml inj IV SCH (09:23)
[2023-01-30] MEDS: magnesium 4gm in 100ml NS 100 ML IV PRN (09:23)
[2023-01-30] MEDS: potassium Cl 20 mEq SR tablet PO PRN (09:24)
[2023-01-30] MEDS ORDERED: furosemide 40mg/4ml inj IV ONE (10:35)
[2023-01-30] MEDS: magnesium 2GM in 50ml NS 50 ML IV PRN (12:55)
[2023-01-30] MEDS ORDERED: LORazepam 2 mg/ml vial IV PRN (15:00)
[2023-01-30] MEDS: dexamethasone 4mg/ml inj IV SCH ×2 (15:08→19:40)
[2023-01-30] MEDS ORDERED: MESSAGE TO PHARMACY PO ONE (19:55)
[2023-01-30] MEDS ORDERED: glucagon, human recombinant 1mg kit SUBCUT PRN (19:55)
[2023-01-30] MEDS ORDERED: dextrose 50%-water 50ml dispensing syringe IV PRN (19:55)
[2023-01-30] MEDS ORDERED: DEXTROSE 15 GM of carb/4 tabs (each vial/BOTTLE has 4 tablets) PO PRN ×2 (19:55)
[2023-01-30] MEDS: insulin regular, human U-100 3ml vial - multi-dose SQ SCH (20:33)
[2023-01-30] MEDS: insulin glargine (Lantus) pen - multi-dose SQ SCH (20:34)
[2023-01-30] MEDS: dexmedetomidin/NS 400mcg/100ml 100 ML IV PRN (22:08)
[2023-01-31] VITALS (15 sets, daily range): BP systolic 98–151; BP diastolic 64–90
[2023-01-31] MEDS: mineral oil/petrolatum ophthal oint EACHEYE SCH ×3 (02:00→14:00)
[2023-01-31] MEDS: dexamethasone 4mg/ml inj IV SCH ×4 (02:22→22:08)
[2023-01-31] MEDS: insulin regular, human U-100 3ml vial - multi-dose SQ SCH ×3 (02:24→14:48)
[2023-01-31 02:58] LABS: BASOPHILS % (AUTO) 0.2 % (0-1); EOSINOPHILS % (AUTO) 0.1 % (0-6); HEMATOCRIT 40.7 % (42.0-52.0); HEMOGLOBIN 13.8 g/dl (14.0-17.9); LYMPHOCYTES # (AUTO) 0.5 X10'3 (1.1-4.8); LYMPHOCYTES % (AUTO) 9.7 % (21-51); MEAN CORPUSCULAR HEMOGLOBIN 35.9 PG (27.0-31.0); MEAN CORPUSCULAR VOLUME 105.5 FL (78-98); MEAN PLATELET VOLUME 8.5 FL (7.4-10.4); MONOCYTES # (AUTO) 0.2 X10'3 (0-0.9); MONOCYTES % (AUTO) 3.7 % (2-12); NEUTROPHILS # (AUTO) 4.1 X10'3 (1.8-7.7); NEUTROPHILS % (AUTO) 86.3 % (42-75); PLATELET COUNT 87 X10'3 (140-440); RED BLOOD COUNT 3.86 X10'6 (4.70-6.10); RED CELL DISTRIBUTION WIDTH 14.5 % (11.5-14.5); WHITE BLOOD COUNT 4.7 X10'3 (4.5-11.0)
[2023-01-31 02:59] LABS: ALANINE AMINOTRANSFERASE 22 U/L (12-78); ALBUMIN 2.7 G/DL (3.4-5.0); ALBUMIN/GLOBULIN RATIO 0.7 (1.1-1.5); ALKALINE PHOSPHATASE 84 IU/L (46-116); ANION GAP 10 (8-16); ASPARTATE AMINO TRANSFERASE 28 U/L (10-37); BLOOD UREA NITROGEN 9 MG/DL (7-18); BUN/CREATININE RATIO 10.6 (10.0-20.0); CALCIUM 8.1 MG/DL (8.5-10.1); CHLORIDE 103 MMOL/L (99-107); CREATININE 0.85 MG/DL (0.60-1.10); GLUCOSE 181 MG/DL (70-104); MAGNESIUM 2.1 MG/DL (1.5-2.4); PHOSPHORUS 3.4 MG/DL (2.3-4.5); POTASSIUM 3.3 MMOL/L (3.5-5.1); SODIUM 140 MMOL/L (135-145); TOTAL PROTEIN 6.4 G/DL (6.4-8.2); eGFR 90 ML/MIN
[2023-01-31 03:37] LABS: HEMOGLOBIN A1C 4.7 % (4.5-6.2)
[2023-01-31] MEDS: potassium Cl 20 mEq SR tablet PO PRN ×2 (03:53→14:42)
[2023-01-31] MEDS: dexmedetomidin/NS 400mcg/100ml 100 ML IV PRN (05:03)
--- NOTE | 2023-01-31 06:30 | NUR ---
Received report from YOHANA Ring
[2023-01-31] MEDS: K and/or MAG REPLACEMENT MC SCH (08:00)
[2023-01-31] MEDS: thiamine 100mg/ml 2ml inj. IM SCH ×2 (09:30→22:08)
[2023-01-31] MEDS: levetiracetam inj 750 MG in normal saline 100ml IV soln 100 ML IV SCH (09:30)
[2023-01-31] MEDS: MULTIVIT-MIN/FERROUS GLUCONATE 9 MG/15 ML LIQUID OGT SCH (09:30)
[2023-01-31] MEDS: pantoprazole 40MG/NS 100ML BAG 100 ML IV SCH (09:30)
[2023-01-31] MEDS: enoxaparin 40mg/0.4ml syringe SUBCUT SCH (09:31)
[2023-01-31] MEDS: folic acid 1mg/0.2ml inj IV SCH (09:31)
--- NOTE | 2023-01-31 15:28 | NUR ---
Called report to YOHANA Wolff. Transferred patient to room 4022a via hospital bed. Mariella at bedside.
--- NOTE | 2023-01-31 15:30 | NUR ---
Patient confused, trying to pull on NG, does not follow instructions well. NA at bedside.
--- NOTE | 2023-01-31 15:31 | NUR ---
PAGER ID: [phone] MESSAGE: [phone] TIFFANIE need restraint order or ativan pulled iv and is attempting to pull feeding tube. TERE [phone]
[2023-01-31] MEDS: LORazepam 2 mg/ml vial IV PRN ×2 (16:12→22:32)
--- NOTE | 2023-01-31 17:47 | NUR ---
PAGER ID: [phone] MESSAGE: [phone] Olsen requesting water. sips? Mariella [phone]
--- NOTE | 2023-01-31 18:20 | NUR ---
Patient pulled NG tube out. Tube feeding stopped
--- NOTE | 2023-01-31 18:45 | NUR ---
report to Natacha MULLER
[2023-01-31] MEDS: insulin glargine (Lantus) pen - multi-dose SQ SCH (21:00)
[2023-01-31] MEDS: levetiracetam inj 500 MG in normal saline 100ml IV soln 100 ML IV SCH (22:07)
[2023-02-01] MEDS: dexamethasone 4mg/ml inj IV SCH (05:03)
[2023-02-01 05:35] LABS: BASOPHILS % (AUTO) 0.2 % (0-1); EOSINOPHILS % (AUTO) 0 % (0-6); HEMATOCRIT 41.9 % (42.0-52.0); HEMOGLOBIN 14.3 g/dl (14.0-17.9); LYMPHOCYTES # (AUTO) 0.7 X10'3 (1.1-4.8); LYMPHOCYTES % (AUTO) 7.6 % (21-51); MEAN CORPUSCULAR HEMOGLOBIN 36.1 PG (27.0-31.0); MEAN CORPUSCULAR HGB CONC 34.1 g/dL (33.0-36.5); MEAN CORPUSCULAR VOLUME 105.9 FL (78-98); MEAN PLATELET VOLUME 9.2 FL (7.4-10.4); MONOCYTES # (AUTO) 0.4 X10'3 (0-0.9); MONOCYTES % (AUTO) 5.2 % (2-12); NEUTROPHILS # (AUTO) 7.5 X10'3 (1.8-7.7); PLATELET COUNT 124 X10'3 (140-440); RED BLOOD COUNT 3.96 X10'6 (4.70-6.10); RED CELL DISTRIBUTION WIDTH 14.8 % (11.5-14.5); WHITE BLOOD COUNT 8.6 X10'3 (4.5-11.0)
[2023-02-01 05:48] LABS: ALANINE AMINOTRANSFERASE 20 U/L (12-78); ALBUMIN 2.7 G/DL (3.4-5.0); ALBUMIN/GLOBULIN RATIO 0.7 (1.1-1.5); ALKALINE PHOSPHATASE 84 IU/L (46-116); ANION GAP 10 (8-16); ASPARTATE AMINO TRANSFERASE 25 U/L (10-37); BILIRUBIN,TOTAL 0.9 MG/DL (0.1-1.0); BLOOD UREA NITROGEN 19 MG/DL (7-18); BUN/CREATININE RATIO 22.6 (10.0-20.0); CALCIUM 8.5 MG/DL (8.5-10.1); CHLORIDE 106 MMOL/L (99-107); CREATININE 0.84 MG/DL (0.60-1.10); GLUCOSE 112 MG/DL (70-104); MAGNESIUM 1.7 MG/DL (1.5-2.4); PHOSPHORUS 3.3 MG/DL (2.3-4.5); POTASSIUM 3.4 MMOL/L (3.5-5.1); PREALBUMIN 16.5 MG/DL (19-36); SODIUM 143 MMOL/L (135-145); TOTAL CARBON DIOXIDE 27.5 MMOL/L (24-32); TOTAL PROTEIN 6.6 G/DL (6.4-8.2); eGFR > 90 ML/MIN
[2023-02-01 06:00] VITALS: BP 149/98
--- NOTE | 2023-02-01 06:58 | NUR ---
Patient in room [facility]TH[facility] 4022. I have received report from maycol loya and had the opportunity to ask questions and assume patient care.
[2023-02-01] MEDS: thiamine 100mg/ml 2ml inj. IM SCH ×2 (07:46→20:39)
[2023-02-01] MEDS: MULTIVIT-MIN/FERROUS GLUCONATE 9 MG/15 ML LIQUID OGT SCH (07:46)
[2023-02-01] MEDS: mineral oil/petrolatum ophthal oint EACHEYE SCH ×3 (08:00→20:42)
[2023-02-01] MEDS: K and/or MAG REPLACEMENT MC SCH (08:00)
[2023-02-01] MEDS: levetiracetam inj 500 MG in normal saline 100ml IV soln 100 ML IV SCH ×2 (08:15→20:42)
[2023-02-01] MEDS: folic acid 1mg/0.2ml inj IV SCH (09:33)
[2023-02-01] MEDS: pantoprazole 40MG/NS 100ML BAG 100 ML IV SCH (09:35)
--- NOTE | 2023-02-01 09:51 | NUR ---
post fall vitals were given to attending resident bp 164/97 hh 99 98% 3 L RR16
--- NOTE | 2023-02-01 09:51 | NUR ---
called dr meeks to inform that pt had a fall at about 0930 when i was notified. pt was going to the bathroom and aide stated pt did not tell her when he was done and he just stood up and fell down. i went to the room right away and found the charge nurse and sitter getting pt back in bed. pt did not have any noticeable open areas, just some redness to the back, aide stated he did not hit his head. charge nurse notified and i asked to inform me if they would like a head scan to be done on him or anything else, stated they would let me know. Addendum: 02/01/23 at 1213 by Darlin Salazar RN fall happened between the hr of [id number] exact time unsure due to being in another pt room and other staff had notified me.
[2023-02-01 10:00] VITALS: BP 145/96
--- NOTE | 2023-02-01 10:13 | NUR ---
Page Sent PAGER ID: [phone] MESSAGE: [phone] oshea, do you want this pt to have decadron still? was usnure of the reason he was on this. also i held the lovenox due to his fluctuations in PLT levels. please call me unable to get ahold of resident. pamela [phone]
--- NOTE | 2023-02-01 10:30 | NUR ---
dr caro came to the floor to asses pt post fall. she stated pt looks fine and i let her know his vitals and the small red areas. the pt did not hit his head per pt tech sitting.
[2023-02-01] MEDS: enoxaparin 40mg/0.4ml syringe SUBCUT SCH (10:36)
--- NOTE | 2023-02-01 10:37 | NUR ---
per dr caro pt can have the Lovenox if he drops more in plt then she will dc, also pt does not need Decadron she wants this to be dc. pt can also have two replacements of K for his potassium of 3.4 about 4 hrs apart.
[2023-02-01] MEDS ORDERED: potassium Cl 20 mEq SR tablet PO STA (10:39)
[2023-02-01] MEDS ORDERED: potassium Cl 20 mEq SR tablet PO ONE (10:40)
--- NOTE | 2023-02-01 16:10 | NUR ---
PT SEEMS MORE AWARE RIGHT NOW, STATED THAT HE HAD A BM BEFORE HE FELL. HE RECALLS THE FALL HE HAD EARLIER TODAY AND KNOWS OTHER ALERT QUESTIONS WHEN ASKED.
--- NOTE | 2023-02-01 16:16 | NUR ---
F/u 02/01: Pt extubated 01/30 afternoon continued on NGTF until last night when pt pulled out NG per EMR. Pt AOx2/confused advanced to clear liquids WB PO 100% now full liquids started WL today pending PO documentation in EMR. Remains on thiamine, folic acid, Fe/MVM for etoh hx per EMR. No BM yet this admit; SEDA d/w RN regarding routine bowel regimen if MD agreeable as none in EMR. Will monitor for diet advancement, tolerance, and further nutrition intervention needs this admit. Recommendations: 1) Advance diet as medically indicated to regular 2) Monitor for diet advancement/tolerance for ONS needs 3) Routine Thiamine, Folic acid, and MVM with Iron d/t EtOH hx with elevated MCV 4) Routine bowel care 5) weekly wt Addendum: 02/01/23 at [address] Amended: Links added.
[2023-02-01 18:00] VITALS: BP 146/94
[2023-02-01] MEDS ORDERED: mineral oil/petrolatum ophthal oint EACHEYE SCH ×2 (20:52→20:55)
[2023-02-01] MEDS: insulin glargine (Lantus) pen - multi-dose SQ SCH (21:00)
[2023-02-01 22:00] VITALS: BP 150/99
--- NOTE | 2023-02-02 00:52 | NUR ---
Problems reprioritized. Patient report given, questions answered & plan of care reviewed with SIMONE MLULER.
[2023-02-02] MEDS: LORazepam 2 mg/ml vial IV PRN (03:33)
[2023-02-02 03:36] VITALS: BP 161/99
[2023-02-02 05:34] VITALS: BP 146/91
[2023-02-02 06:02] LABS: ALANINE AMINOTRANSFERASE 43 U/L (12-78); ALBUMIN 2.6 G/DL (3.4-5.0); ALBUMIN/GLOBULIN RATIO 0.7 (1.1-1.5); ALKALINE PHOSPHATASE 80 IU/L (46-116); ANION GAP 8 (8-16); ASPARTATE AMINO TRANSFERASE 84 U/L (10-37); BILIRUBIN,TOTAL 1.1 MG/DL (0.1-1.0); BLOOD UREA NITROGEN 18 MG/DL (7-18); BUN/CREATININE RATIO 20.5 (10.0-20.0); CALCIUM 8.7 MG/DL (8.5-10.1); CHLORIDE 100 MMOL/L (99-107); CREATININE 0.88 MG/DL (0.60-1.10); GLUCOSE 100 MG/DL (70-104); MAGNESIUM 1.1 MG/DL (1.5-2.4); PHOSPHORUS 3.8 MG/DL (2.3-4.5); POTASSIUM 3.6 MMOL/L (3.5-5.1); SODIUM 135 MMOL/L (135-145); TOTAL CARBON DIOXIDE 27.5 MMOL/L (24-32); TOTAL PROTEIN 6.3 G/DL (6.4-8.2); eGFR 87 ML/MIN
[2023-02-02 06:12] LABS: BASOPHILS % (AUTO) 0.5 % (0-1); EOSINOPHILS # (AUTO) 0.1 X10'3 (0-0.9); HEMATOCRIT 40.9 % (42.0-52.0); HEMOGLOBIN 13.9 g/dl (14.0-17.9); LYMPHOCYTES # (AUTO) 1.1 X10'3 (1.1-4.8); LYMPHOCYTES % (AUTO) 20.3 % (21-51); MEAN CORPUSCULAR HEMOGLOBIN 35.8 PG (27.0-31.0); MEAN CORPUSCULAR HGB CONC 34.1 g/dL (33.0-36.5); MEAN PLATELET VOLUME 8.3 FL (7.4-10.4); MONOCYTES # (AUTO) 0.8 X10'3 (0-0.9); MONOCYTES % (AUTO) 14.7 % (2-12); NEUTROPHILS # (AUTO) 3.4 X10'3 (1.8-7.7); NEUTROPHILS % (AUTO) 63.5 % (42-75); PLATELET COUNT 138 X10'3 (140-440); RED BLOOD COUNT 3.89 X10'6 (4.70-6.10); RED CELL DISTRIBUTION WIDTH 14.5 % (11.5-14.5); WHITE BLOOD COUNT 5.4 X10'3 (4.5-11.0)
--- NOTE | 2023-02-02 06:40 | NUR ---
Patient in room [facility]TH[facility] 4022. I have received report from Joanie and had the opportunity to ask questions and assume patient care.
[2023-02-02] MEDS: levetiracetam inj 500 MG in normal saline 100ml IV soln 100 ML IV SCH ×2 (08:29→21:36)
[2023-02-02] MEDS: folic acid 1mg/0.2ml inj IV SCH (08:29)
[2023-02-02] MEDS: lansoprazole 15mg solutab NG SCH (08:30)
[2023-02-02] MEDS: MULTIVIT-MIN/FERROUS GLUCONATE 9 MG/15 ML LIQUID OGT SCH (08:30)
[2023-02-02] MEDS: enoxaparin 40mg/0.4ml syringe SUBCUT SCH (08:30)
[2023-02-02] MEDS: magnesium 2GM in 50ml NS 50 ML IV PRN (09:28)
[2023-02-02] MEDS: thiamine 100mg/ml 2ml inj. IV SCH ×2 (09:28→21:37)
[2023-02-02 10:00] VITALS: BP 141/83
[2023-02-02] MEDS: magnesium 4gm in 100ml NS 100 ML IV PRN (11:17)
[2023-02-02 18:00] VITALS: BP 149/96
--- NOTE | 2023-02-02 18:40 | NUR ---
Patient in room [facility]TH[facility] 4022. I have received report from YOHANA Goodman and had the opportunity to ask questions and assume patient care.
[2023-02-02 22:00] VITALS: BP 142/89
[2023-02-03 06:00] VITALS: BP 158/86
--- NOTE | 2023-02-03 06:32 | NUR ---
Problems reprioritized. Patient report given, questions answered & plan of care reviewed with YOHANA Goodman.
[2023-02-03 07:06] LABS: BASOPHILS % (AUTO) 0.4 % (0-1); EOSINOPHILS % (AUTO) 0.7 % (0-6); HEMATOCRIT 39.9 % (42.0-52.0); HEMOGLOBIN 13.9 g/dl (14.0-17.9); LYMPHOCYTES # (AUTO) 1.2 X10'3 (1.1-4.8); LYMPHOCYTES % (AUTO) 19.2 % (21-51); MEAN CORPUSCULAR HEMOGLOBIN 36.5 PG (27.0-31.0); MEAN CORPUSCULAR HGB CONC 34.8 g/dL (33.0-36.5); MEAN CORPUSCULAR VOLUME 104.9 FL (78-98); MEAN PLATELET VOLUME 8.6 FL (7.4-10.4); MONOCYTES # (AUTO) 1.1 X10'3 (0-0.9); MONOCYTES % (AUTO) 17.1 % (2-12); NEUTROPHILS % (AUTO) 62.6 % (42-75); PLATELET COUNT 152 X10'3 (140-440); RED BLOOD COUNT 3.81 X10'6 (4.70-6.10); RED CELL DISTRIBUTION WIDTH 14.4 % (11.5-14.5); WHITE BLOOD COUNT 6.4 X10'3 (4.5-11.0)
--- NOTE | 2023-02-03 07:08 | NUR ---
MANAGER MEAT documentation: I have reviewed and agree with all interventions, assessments performed and documented by Nohemi . Addendum: 02/03/23 at 0709 by Sawyer Benítez RN Amended: Links added.
[2023-02-03] MEDS ORDERED: propranolol 10mg tablet PO PRN (07:20)
[2023-02-03 07:28] LABS: ALANINE AMINOTRANSFERASE 65 U/L (12-78); ALBUMIN 2.7 G/DL (3.4-5.0); ALBUMIN/GLOBULIN RATIO 0.7 (1.1-1.5); ALKALINE PHOSPHATASE 90 IU/L (46-116); ANION GAP 10 (8-16); ASPARTATE AMINO TRANSFERASE 84 U/L (10-37); BILIRUBIN,TOTAL 1.3 MG/DL (0.1-1.0); BLOOD UREA NITROGEN 20 MG/DL (7-18); BUN/CREATININE RATIO 18.5 (10.0-20.0); CALCIUM 8.6 MG/DL (8.5-10.1); CHLORIDE 98 MMOL/L (99-107); CREATININE 1.08 MG/DL (0.60-1.10); GLUCOSE 101 MG/DL (70-104); MAGNESIUM 1.6 MG/DL (1.5-2.4); PHOSPHORUS 4.8 MG/DL (2.3-4.5); POTASSIUM 3.6 MMOL/L (3.5-5.1); SODIUM 134 MMOL/L (135-145); TOTAL PROTEIN 6.6 G/DL (6.4-8.2); eGFR 68 ML/MIN
[2023-02-03 07:41] LABS: LARGE PLATELETS FEW; PLATELET ESTIMATE NORMAL; TOTAL CELLS COUNTED 100
[2023-02-03] MEDS: thiamine 100mg/ml 2ml inj. IV SCH ×2 (08:02→21:20)
[2023-02-03] MEDS: folic acid 1mg/0.2ml inj IV SCH (08:02)
[2023-02-03] MEDS: MULTIVIT-MIN/FERROUS GLUCONATE 9 MG/15 ML LIQUID OGT SCH (08:02)
[2023-02-03] MEDS: levetiracetam inj 500 MG in normal saline 100ml IV soln 100 ML IV SCH ×2 (08:02→21:20)
[2023-02-03] MEDS: lansoprazole 15mg solutab NG SCH (08:02)
[2023-02-03] MEDS: enoxaparin 40mg/0.4ml syringe SUBCUT SCH (08:03)
[2023-02-03 10:00] VITALS: BP 129/77
[2023-02-03] MEDS: propranolol 10mg tablet PO SCH ×2 (10:17→20:25)
--- NOTE | 2023-02-03 15:07 | NUR ---
Re: 0012A, Raúl, pt is painful, asking for pain relief med, please advise Maxine [phone]
[2023-02-03] MEDS: acetaminophen 325mg tablet PO SCH (15:28)
[2023-02-03 18:00] VITALS: BP 133/75
--- NOTE | 2023-02-03 18:35 | NUR ---
Problems reprioritized. Patient report given, questions answered & plan of care reviewed with Nohemi.
--- NOTE | 2023-02-03 19:10 | NUR ---
transferred patient closer to station with new bed alarm bed. removed sitter, will reassess with patient activity.
--- NOTE | 2023-02-03 20:00 | NUR ---
assess complete. pt laying on right side. awakens to name. noted left facial droop, pt c/o pain on shoulder blades and left arm - received pain medicine recently. right lung noted rubs and rhonchi - has dry cough noted. left lungs clear. pulses intact, iv left FA infusing w/o difficulty. possible left facial droop, will reassess when patient on his other side. able to give birthday and name. noted tremors of left hand slightly when moving position.
--- NOTE | 2023-02-03 20:26 | NUR ---
BP: 120/79 HR: 91
[2023-02-03 22:00] VITALS: BP 117/80
--- NOTE | 2023-02-03 23:46 | NUR ---
pt does NOT have a facial droop. now that patient laying on back noted pt clenching and unclenching jaw that creates look of droop. noted unintentional tremor of lower facial muscles when sleeping.
[2023-02-04] MEDS: acetaminophen 325mg tablet PO SCH (00:56)
--- NOTE | 2023-02-04 03:00 | NUR ---
Encouraged Pt to cough, and to spit up sputum. Frequent reminders to use the call light, and to wait for staff before ambulating.
[2023-02-04 05:56] LABS: BASOPHILS % (AUTO) 0.5 % (0-1); EOSINOPHILS # (AUTO) 0.1 X10'3 (0-0.9); EOSINOPHILS % (AUTO) 1.2 % (0-6); HEMATOCRIT 39.3 % (42.0-52.0); HEMOGLOBIN 13.6 g/dl (14.0-17.9); LYMPHOCYTES % (AUTO) 16.9 % (21-51); MEAN CORPUSCULAR HEMOGLOBIN 36.3 PG (27.0-31.0); MEAN CORPUSCULAR HGB CONC 34.5 g/dL (33.0-36.5); MEAN CORPUSCULAR VOLUME 105.2 FL (78-98); MONOCYTES # (AUTO) 1.1 X10'3 (0-0.9); MONOCYTES % (AUTO) 17.9 % (2-12); NEUTROPHILS # (AUTO) 3.8 X10'3 (1.8-7.7); NEUTROPHILS % (AUTO) 63.5 % (42-75); PLATELET COUNT 171 X10'3 (140-440); RED BLOOD COUNT 3.74 X10'6 (4.70-6.10); RED CELL DISTRIBUTION WIDTH 14.1 % (11.5-14.5); WHITE BLOOD COUNT 6.1 X10'3 (4.5-11.0)
[2023-02-04 06:00] VITALS: BP 110/74
[2023-02-04 06:06] LABS: ALANINE AMINOTRANSFERASE 55 U/L (12-78); ALBUMIN 2.7 G/DL (3.4-5.0); ALBUMIN/GLOBULIN RATIO 0.7 (1.1-1.5); ALKALINE PHOSPHATASE 86 IU/L (46-116); ANION GAP 9 (8-16); ASPARTATE AMINO TRANSFERASE 49 U/L (10-37); BLOOD UREA NITROGEN 24 MG/DL (7-18); BUN/CREATININE RATIO 23.1 (10.0-20.0); CALCIUM 8.9 MG/DL (8.5-10.1); CHLORIDE 100 MMOL/L (99-107); CREATININE 1.04 MG/DL (0.60-1.10); GLUCOSE 111 MG/DL (70-104); MAGNESIUM 1.5 MG/DL (1.5-2.4); PHOSPHORUS 4.4 MG/DL (2.3-4.5); POTASSIUM 3.6 MMOL/L (3.5-5.1); SODIUM 135 MMOL/L (135-145); TOTAL PROTEIN 6.7 G/DL (6.4-8.2); eGFR 71 ML/MIN
--- NOTE | 2023-02-04 07:03 | NUR ---
Problems reprioritized. Patient report given, questions answered & plan of care reviewed with YAJAIRA Dejesus.
[2023-02-04] MEDS: MULTIVIT-MIN/FERROUS GLUCONATE 9 MG/15 ML LIQUID OGT SCH (08:00)
[2023-02-04] MEDS: levetiracetam inj 500 MG in normal saline 100ml IV soln 100 ML IV SCH (08:48)
[2023-02-04] MEDS: thiamine 100mg/ml 2ml inj. IV SCH (08:48)
[2023-02-04] MEDS: enoxaparin 40mg/0.4ml syringe SUBCUT SCH (09:45)
[2023-02-04] MEDS: propranolol 10mg tablet PO SCH ×2 (09:46→20:26)
[2023-02-04] MEDS: lansoprazole 15mg solutab NG SCH (09:46)
--- NOTE | 2023-02-04 09:56 | NUR ---
F/u 02/04: Pt EMR pt is AOx2. Pt upgraded to a regular diet on 02/02 with average PO intake of 60% meeting 92% of estimated kcal and and 100% of protein needs. Pt continues getting folic acid, MVM with iron, and Thiamin due to EtOH hx. Noted two different scaled wt on 01/30 72kg vs 77.6kg, scaled wt, 72kg is close to admit wt. LBM on 02/03 with PRN bowel care per EMR. Will continue to monitor. Recommendations: 1) continue regular diet 2) continue Routine Thiamine, Folic acid, and MVM with Iron d/t EtOH hx with elevated MCV 3) bowel care per physician 4) weekly wt Addendum: 02/04/23 at [address] Amended: Links added. Addendum: 02/04/23 at [address] I have reviewed and agree with note. SEDA Monteiro
[2023-02-04 10:00] VITALS: BP 110/71
[2023-02-04] MEDS: folic acid 1mg/0.2ml inj IV SCH (10:31)
--- NOTE | 2023-02-04 11:17 | NUR ---
relieving ENGINEERING GROUP LEADER for break, pt is sleeping quietly on bed, sitter at bedside
--- NOTE | 2023-02-04 16:01 | NUR ---
relieving MANGLE ROLLER for break, pt continues to rest quietly on bed, family at bedside
[2023-02-04 18:00] VITALS: BP 154/84
--- NOTE | 2023-02-04 18:05 | NUR ---
Problems reprioritized. Patient report given, questions answered & plan of care reviewed with ines MULLER .
--- NOTE | 2023-02-04 18:15 | NUR ---
Patient in room [facility]TH[facility] 4020. I have received report from Anjelica GATES and had the opportunity to ask questions and assume patient care.
--- NOTE | 2023-02-04 19:31 | NUR ---
[id number] MESSAGE: Can you please call Olga at [phone] Ortho regarding questions on pt in room 4020A, Raúl Bautista please Olga [phone]
[2023-02-04] MEDS: levetiracetam 250mg tablet PO SCH (20:26)
[2023-02-04] MEDS: thiamine 100mg tablet PO SCH (20:26)
[2023-02-04] MEDS ORDERED: morphine 2 MG/ML inj. syringe IV PRN (20:50)
[2023-02-04] MEDS ORDERED: acetaminophen 325mg tablet PO PRN (20:50)
[2023-02-04 21:30] VITALS: BP 137/81
[2023-02-05 06:00] VITALS: BP 124/80
--- NOTE | 2023-02-05 06:15 | NUR ---
Problems reprioritized. Patient report given, questions answered & plan of care reviewed with Colette GATES.
--- NOTE | 2023-02-05 06:20 | NUR ---
Patient in room [facility]TH[facility] 4020. I have received report from Olga MULLER and had the opportunity to ask questions and assume patient care.
[2023-02-05 07:39] LABS: BASOPHILS % (AUTO) 0.8 % (0-1); EOSINOPHILS # (AUTO) 0.1 X10'3 (0-0.9); EOSINOPHILS % (AUTO) 1.7 % (0-6); HEMATOCRIT 40.3 % (42.0-52.0); HEMOGLOBIN 13.7 g/dl (14.0-17.9); LYMPHOCYTES # (AUTO) 1.3 X10'3 (1.1-4.8); LYMPHOCYTES % (AUTO) 20.6 % (21-51); MEAN CORPUSCULAR HEMOGLOBIN 35.8 PG (27.0-31.0); MEAN CORPUSCULAR HGB CONC 33.9 g/dL (33.0-36.5); MEAN CORPUSCULAR VOLUME 105.6 FL (78-98); MEAN PLATELET VOLUME 9.7 FL (7.4-10.4); MONOCYTES % (AUTO) 16.4 % (2-12); NEUTROPHILS # (AUTO) 3.7 X10'3 (1.8-7.7); NEUTROPHILS % (AUTO) 60.5 % (42-75); PLATELET COUNT 225 X10'3 (140-440); RED BLOOD COUNT 3.82 X10'6 (4.70-6.10); RED CELL DISTRIBUTION WIDTH 13.7 % (11.5-14.5); WHITE BLOOD COUNT 6.2 X10'3 (4.5-11.0)
[2023-02-05 07:54] LABS: ALANINE AMINOTRANSFERASE 50 U/L (12-78); ALBUMIN 2.7 G/DL (3.4-5.0); ALBUMIN/GLOBULIN RATIO 0.6 (1.1-1.5); ALKALINE PHOSPHATASE 92 IU/L (46-116); ANION GAP 12 (8-16); ASPARTATE AMINO TRANSFERASE 46 U/L (10-37); BILIRUBIN,TOTAL 0.9 MG/DL (0.1-1.0); BLOOD UREA NITROGEN 23 MG/DL (7-18); BUN/CREATININE RATIO 22.8 (10.0-20.0); CALCIUM 8.7 MG/DL (8.5-10.1); CHLORIDE 99 MMOL/L (99-107); CREATININE 1.01 MG/DL (0.60-1.10); GLUCOSE 92 MG/DL (70-104); MAGNESIUM 1.5 MG/DL (1.5-2.4); PHOSPHORUS 3.9 MG/DL (2.3-4.5); POTASSIUM 3.5 MMOL/L (3.5-5.1); SODIUM 135 MMOL/L (135-145); TOTAL CARBON DIOXIDE 24.3 MMOL/L (24-32); eGFR 74 ML/MIN
[2023-02-05] MEDS: folic acid 1mg tablet PO SCH (08:22)
[2023-02-05] MEDS: propranolol 10mg tablet PO SCH ×2 (08:30→19:30)
[2023-02-05] MEDS: lansoprazole 15mg solutab NG SCH (08:30)
[2023-02-05] MEDS: thiamine 100mg tablet PO SCH ×2 (08:30→19:31)
[2023-02-05] MEDS: multivitamins, therapeutics tablet PO SCH (08:30)
[2023-02-05] MEDS: levetiracetam 250mg tablet PO SCH ×2 (08:30→19:31)
[2023-02-05] MEDS: enoxaparin 40mg/0.4ml syringe SUBCUT SCH (08:31)
[2023-02-05 10:00] VITALS: BP 125/78
[2023-02-05 13:13] LABS: CLARITY,URINE CLEAR (Clear); COLOR,URINE YELLOW (Yellow); GLUCOSE, URINE NEGATIVE (Neg); KETONES,URINE NEGATIVE (Neg); LEUKOCYTE ESTERASE ,URINE NEGATIVE (Neg); NITRITES, URINE NEGATIVE (Neg); OCCULT BLOOD,URINE NEGATIVE (Neg); PROTEIN,URINE NEGATIVE (Neg); UROBILINOGEN,URINE 0.2 E.U/dL (0.2-1.0)
[2023-02-05 13:14] LABS: UA COLLECTION TYPE CLN CATCH MIDSTREAM
[2023-02-05] MEDS ORDERED: THIA50TA10 PO (14:34)
[2023-02-05] MEDS ORDERED: FOLI1TAB27 PO (14:34)
[2023-02-05] MEDS ORDERED: MULT-25 PO (14:34)
--- NOTE | 2023-02-05 15:01 | NUR ---
Kyle with Radiology called back stated he did let the radiologist know that Dr Stephenson would like the results of patients left shoulder xray hoping to expedite the reading.
[2023-02-05] MEDS: traMADol 50MG tablet PO PRN (16:08)
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
--- NOTE | 2023-02-05 17:01 | NUR ---
Message: [id number]-Leo Olsen- Patient shoulder xray report is in. Also, Ojanie spoke with patient again. Pls call me at [phone] TY Colette
--- NOTE | 2023-02-05 17:31 | NUR ---
Message: [id number]- Andrés,P- 2nd page: Patient shoulder xray reading is in chart. Pls advise? VIJAY Alvarenga [phone]
[2023-02-05 18:00] VITALS: BP 122/88
--- NOTE | 2023-02-05 18:20 | NUR ---
Recieved report from YAJAIRA Alvarenga.
--- NOTE | 2023-02-05 18:20 | NUR ---
Patient in room ORTHO 4020. I have received report from YAJAIRA HU and had the opportunity to ask questions and assume patient care.
--- NOTE | 2023-02-05 18:20 | NUR ---
Patient in room ORTHO 4020. I have received report from [] and had the opportunity to ask questions and assume patient care.
--- NOTE | 2023-02-05 18:44 | NUR ---
Problems reprioritized. Patient report given, questions answered & plan of care reviewed with Jeanne MULLER.
--- NOTE | 2023-02-05 19:02 | NUR ---
Late note from 02/04/23: I called Dr. Matias to inform him that I discovered pt had left arm weakness and I could not find any documentation of this weakness in chart. Per patient he thinks it could have been weak for 4 days, he did not recall injuring it or falling on it. But he does show signs of pain when I have him attempt to lift up the left arm. No xrays of the extremity on file either.
[2023-02-05 22:00] VITALS: BP 132/82
[2023-02-06 06:00] VITALS: BP 119/85
--- NOTE | 2023-02-06 06:15 | NUR ---
Problems reprioritized. Patient report given, questions answered & plan of care reviewed with Bobbi.
--- NOTE | 2023-02-06 06:27 | NUR ---
I have received report from YOHANA Pollock and had the opportunity to ask questions and assume patient care. Patient is in no acute distress at this time.
[2023-02-06 06:36] LABS: BASOPHILS % (AUTO) 0.9 % (0-1); EOSINOPHILS # (AUTO) 0.1 X10'3 (0-0.9); EOSINOPHILS % (AUTO) 1.3 % (0-6); HEMATOCRIT 39.1 % (42.0-52.0); HEMOGLOBIN 13.6 g/dl (14.0-17.9); LYMPHOCYTES # (AUTO) 1.2 X10'3 (1.1-4.8); LYMPHOCYTES % (AUTO) 21.1 % (21-51); MEAN CORPUSCULAR HEMOGLOBIN 36.4 PG (27.0-31.0); MEAN CORPUSCULAR HGB CONC 34.7 g/dL (33.0-36.5); MEAN PLATELET VOLUME 9.6 FL (7.4-10.4); MONOCYTES # (AUTO) 0.9 X10'3 (0-0.9); MONOCYTES % (AUTO) 15.7 % (2-12); NEUTROPHILS # (AUTO) 3.4 X10'3 (1.8-7.7); PLATELET COUNT 238 X10'3 (140-440); RED BLOOD COUNT 3.73 X10'6 (4.70-6.10); RED CELL DISTRIBUTION WIDTH 13.9 % (11.5-14.5); WHITE BLOOD COUNT 5.5 X10'3 (4.5-11.0)
[2023-02-06 07:19] LABS: GLUCOSE 110 MG/DL (70-104); SODIUM 136 MMOL/L (135-145)
[2023-02-06 07:20] LABS: ALANINE AMINOTRANSFERASE 54 U/L (12-78); ALBUMIN 2.7 G/DL (3.4-5.0); ALBUMIN/GLOBULIN RATIO 0.7 (1.1-1.5); ALKALINE PHOSPHATASE 91 IU/L (46-116); ANION GAP 13 (8-16); ASPARTATE AMINO TRANSFERASE 64 U/L (10-37); BILIRUBIN,TOTAL 0.7 MG/DL (0.1-1.0); BLOOD UREA NITROGEN 24 MG/DL (7-18); BUN/CREATININE RATIO 21.4 (10.0-20.0); CHLORIDE 99 MMOL/L (99-107); CREATININE 1.12 MG/DL (0.60-1.10); MAGNESIUM 1.5 MG/DL (1.5-2.4); PHOSPHORUS 4.4 MG/DL (2.3-4.5); POTASSIUM 3.9 MMOL/L (3.5-5.1); TOTAL CARBON DIOXIDE 23.7 MMOL/L (24-32); TOTAL PROTEIN 6.8 G/DL (6.4-8.2); eGFR 66 ML/MIN
[2023-02-06] MEDS: levetiracetam 250mg tablet PO SCH ×2 (08:57→19:57)
[2023-02-06] MEDS: multivitamins, therapeutics tablet PO SCH (08:57)
[2023-02-06] MEDS: enoxaparin 40mg/0.4ml syringe SUBCUT SCH (08:57)
[2023-02-06] MEDS: thiamine 100mg tablet PO SCH ×2 (08:58→19:56)
[2023-02-06] MEDS: propranolol 10mg tablet PO SCH ×2 (08:58→19:56)
[2023-02-06] MEDS: lansoprazole 15mg solutab NG SCH (08:58)
[2023-02-06] MEDS: folic acid 1mg tablet PO SCH (08:59)
[2023-02-06 10:00] VITALS: BP 104/76
[2023-02-06 18:00] VITALS: BP 120/71
--- NOTE | 2023-02-06 18:06 | NUR ---
Problems reprioritized. Patient report given, questions answered & plan of care reviewed with Birgit Olivarez RN. Patient has no acute distress at this time.
--- NOTE | 2023-02-06 18:30 | NUR ---
Patient in room ORTH[facility] 4020. I have received report from YAJAIRA PAULSON and had the opportunity to ask questions and assume patient care.
[2023-02-06 22:00] VITALS: BP 122/71
[2023-02-07] MEDS: traMADol 50MG tablet PO PRN ×2 (05:32→20:02)
[2023-02-07 06:00] VITALS: BP 138/86
--- NOTE | 2023-02-07 06:25 | NUR ---
Problems reprioritized. Patient report given, questions answered & plan of care reviewed with YOHANA GUZMAN.
[2023-02-07] MEDS: levetiracetam 250mg tablet PO SCH ×2 (07:51→19:59)
[2023-02-07] MEDS: lansoprazole 15mg solutab NG SCH (07:51)
[2023-02-07] MEDS: folic acid 1mg tablet PO SCH (07:51)
[2023-02-07] MEDS: propranolol 10mg tablet PO SCH ×2 (07:51→19:59)
[2023-02-07] MEDS: multivitamins, therapeutics tablet PO SCH (07:51)
[2023-02-07] MEDS: thiamine 100mg tablet PO SCH ×2 (07:51→19:59)
[2023-02-07] MEDS: enoxaparin 40mg/0.4ml syringe SUBCUT SCH (07:52)
--- NOTE | 2023-02-07 09:45 | NUR ---
Patient in room ORTHO 4020. I have received report from Beckie MULLERland developer and had the opportunity to ask questions and assume patient care.
[2023-02-07 10:00] VITALS: BP 114/76
--- NOTE | 2023-02-07 11:06 | NUR ---
Problems reprioritized. Patient report given, questions answered & plan of care reviewed with Brandee MULLER.
[2023-02-07 11:10] LABS: BASOPHILS # (AUTO) 0.1 X10'3 (0-0.2); BASOPHILS % (AUTO) 1.1 % (0-1); EOSINOPHILS # (AUTO) 0.1 X10'3 (0-0.9); EOSINOPHILS % (AUTO) 1.6 % (0-6); HEMATOCRIT 37.8 % (42.0-52.0); HEMOGLOBIN 13.1 g/dl (14.0-17.9); LYMPHOCYTES # (AUTO) 1.2 X10'3 (1.1-4.8); LYMPHOCYTES % (AUTO) 23.7 % (21-51); MEAN CORPUSCULAR HEMOGLOBIN 36.3 PG (27.0-31.0); MEAN CORPUSCULAR HGB CONC 34.5 g/dL (33.0-36.5); MEAN CORPUSCULAR VOLUME 105.1 FL (78-98); MEAN PLATELET VOLUME 9.5 FL (7.4-10.4); MONOCYTES # (AUTO) 0.8 X10'3 (0-0.9); NEUTROPHILS % (AUTO) 57.6 % (42-75); PLATELET COUNT 270 X10'3 (140-440); RED CELL DISTRIBUTION WIDTH 13.7 % (11.5-14.5); WHITE BLOOD COUNT 5.1 X10'3 (4.5-11.0)
--- NOTE | 2023-02-07 11:16 | NUR ---
Physical assessment charting done by Beckie MULLERship's electronic warfare officer, agreed with findings.
[2023-02-07 11:28] LABS: ALANINE AMINOTRANSFERASE 68 U/L (12-78); ALBUMIN 2.7 G/DL (3.4-5.0); ALBUMIN/GLOBULIN RATIO 0.7 (1.1-1.5); ALKALINE PHOSPHATASE 91 IU/L (46-116); ANION GAP 11 (8-16); ASPARTATE AMINO TRANSFERASE 63 U/L (10-37); BILIRUBIN,TOTAL 0.7 MG/DL (0.1-1.0); BLOOD UREA NITROGEN 22 MG/DL (7-18); CALCIUM 8.4 MG/DL (8.5-10.1); CHLORIDE 99 MMOL/L (99-107); CREATININE 1.05 MG/DL (0.60-1.10); GLUCOSE 106 MG/DL (70-104); MAGNESIUM 1.5 MG/DL (1.5-2.4); PHOSPHORUS 4.2 MG/DL (2.3-4.5); POTASSIUM 3.7 MMOL/L (3.5-5.1); SODIUM 134 MMOL/L (135-145); TOTAL CARBON DIOXIDE 24.5 MMOL/L (24-32); TOTAL PROTEIN 6.7 G/DL (6.4-8.2); eGFR 71 ML/MIN
[2023-02-07 18:00] VITALS: BP 115/69
--- NOTE | 2023-02-07 18:30 | NUR ---
Patient in room ORTHO 4020. I have received report from Brandee MULLER and had the opportunity to ask questions and assume patient care.
--- NOTE | 2023-02-07 18:50 | NUR ---
Problems reprioritized. Patient report given, questions answered & plan of care reviewed with Rebekah MULLER.
[2023-02-07 22:00] VITALS: BP 121/78
[2023-02-08 06:00] VITALS: BP 110/66
[2023-02-08 06:21] LABS: BASOPHILS # (AUTO) 0.1 X10'3 (0-0.2); BASOPHILS % (AUTO) 1.2 % (0-1); EOSINOPHILS # (AUTO) 0.1 X10'3 (0-0.9); EOSINOPHILS % (AUTO) 1.6 % (0-6); HEMATOCRIT 37.6 % (42.0-52.0); HEMOGLOBIN 13.3 g/dl (14.0-17.9); LYMPHOCYTES # (AUTO) 1.3 X10'3 (1.1-4.8); LYMPHOCYTES % (AUTO) 23.8 % (21-51); MEAN CORPUSCULAR HEMOGLOBIN 36.8 PG (27.0-31.0); MEAN CORPUSCULAR HGB CONC 35.4 g/dL (33.0-36.5); MEAN PLATELET VOLUME 9.9 FL (7.4-10.4); MONOCYTES # (AUTO) 0.7 X10'3 (0-0.9); MONOCYTES % (AUTO) 13.2 % (2-12); NEUTROPHILS # (AUTO) 3.3 X10'3 (1.8-7.7); NEUTROPHILS % (AUTO) 60.2 % (42-75); PLATELET COUNT 272 X10'3 (140-440); RED BLOOD COUNT 3.61 X10'6 (4.70-6.10); RED CELL DISTRIBUTION WIDTH 13.8 % (11.5-14.5); WHITE BLOOD COUNT 5.5 X10'3 (4.5-11.0)
--- NOTE | 2023-02-08 06:30 | NUR ---
Problems reprioritized. Patient report given, questions answered & plan of care reviewed with Bobbi Lawrence.
--- NOTE | 2023-02-08 06:40 | NUR ---
I have received report from YOHANA Welch and had the opportunity to ask questions and assume patient care. No acute distress at this time.
[2023-02-08 06:43] LABS: ALANINE AMINOTRANSFERASE 72 U/L (12-78); ALBUMIN 2.7 G/DL (3.4-5.0); ALBUMIN/GLOBULIN RATIO 0.6 (1.1-1.5); ALKALINE PHOSPHATASE 93 IU/L (46-116); ANION GAP 10 (8-16); ASPARTATE AMINO TRANSFERASE 69 U/L (10-37); BILIRUBIN,TOTAL 0.7 MG/DL (0.1-1.0); BLOOD UREA NITROGEN 19 MG/DL (7-18); BUN/CREATININE RATIO 17.9 (10.0-20.0); CALCIUM 8.6 MG/DL (8.5-10.1); CHLORIDE 99 MMOL/L (99-107); CREATININE 1.06 MG/DL (0.60-1.10); GLUCOSE 102 MG/DL (70-104); MAGNESIUM 1.5 MG/DL (1.5-2.4); PHOSPHORUS 4.2 MG/DL (2.3-4.5); POTASSIUM 3.6 MMOL/L (3.5-5.1); SODIUM 134 MMOL/L (135-145); TOTAL CARBON DIOXIDE 24.9 MMOL/L (24-32); TOTAL PROTEIN 6.9 G/DL (6.4-8.2); eGFR 70 ML/MIN
[2023-02-08] MEDS: folic acid 1mg tablet PO SCH (08:01)
[2023-02-08] MEDS: lansoprazole 15mg solutab NG SCH (08:01)
[2023-02-08] MEDS: thiamine 100mg tablet PO SCH ×2 (08:01→21:10)
[2023-02-08] MEDS: multivitamins, therapeutics tablet PO SCH (08:01)
[2023-02-08] MEDS: propranolol 10mg tablet PO SCH ×2 (08:01→21:06)
[2023-02-08] MEDS: levetiracetam 250mg tablet PO SCH ×2 (08:02→21:06)
[2023-02-08] MEDS: enoxaparin 40mg/0.4ml syringe SUBCUT SCH (08:04)
--- NOTE | 2023-02-08 13:00 | NUR ---
I ackloedge their are d/c orders in. The patient has no current transportation available. Paged psychologist social and awaiting the status. Will keep trying. Addendum: 02/08/23 at 1806 by Bobbi Crews LVN, LVN acknowledge*
--- NOTE | 2023-02-08 16:00 | NUR ---
Darío capps stated we can have the cab payment be covered by the hospital as long as it's w/ in reasonable distance. Have attempted to call all local cab companies and they dont have any staff or people to take the pt at this time. Will relay to timber spotter.
[2023-02-08 18:00] VITALS: BP 118/77
--- NOTE | 2023-02-08 18:30 | NUR ---
Patient in room [facility]THO 4021. I have received report from Bobbi GATES and had the opportunity to ask questions and assume patient care.
--- NOTE | 2023-02-08 18:30 | NUR ---
Problems reprioritized. Patient report given, questions answered & plan of care reviewed with YOHANA Welch. Patient has no acute distress at this time.
[2023-02-08] MEDS: traMADol 50MG tablet PO PRN (21:09)
[2023-02-08 22:00] VITALS: BP 122/81
[2023-02-09] MEDS: traMADol 50MG tablet PO PRN (05:40)
[2023-02-09 06:00] VITALS: BP 98/61
[2023-02-09 06:47] LABS: BASOPHILS # (AUTO) 0.1 X10'3 (0-0.2); BASOPHILS % (AUTO) 1.2 % (0-1); EOSINOPHILS # (AUTO) 0.1 X10'3 (0-0.9); EOSINOPHILS % (AUTO) 1.5 % (0-6); HEMATOCRIT 38.4 % (42.0-52.0); HEMOGLOBIN 13.1 g/dl (14.0-17.9); LYMPHOCYTES # (AUTO) 1.4 X10'3 (1.1-4.8); LYMPHOCYTES % (AUTO) 27.1 % (21-51); MEAN CORPUSCULAR HEMOGLOBIN 35.4 PG (27.0-31.0); MEAN CORPUSCULAR HGB CONC 34.1 g/dL (33.0-36.5); MEAN CORPUSCULAR VOLUME 103.7 FL (78-98); MEAN PLATELET VOLUME 9.4 FL (7.4-10.4); MONOCYTES # (AUTO) 0.7 X10'3 (0-0.9); MONOCYTES % (AUTO) 13.6 % (2-12); NEUTROPHILS # (AUTO) 2.8 X10'3 (1.8-7.7); NEUTROPHILS % (AUTO) 56.6 % (42-75); PLATELET COUNT 307 X10'3 (140-440); RED CELL DISTRIBUTION WIDTH 13.4 % (11.5-14.5)
--- NOTE | 2023-02-09 07:00 | NUR ---
Patient in room ORTHO 4021. I have received report from Rebekah MULLER and had the opportunity to ask questions and assume patient care.
[2023-02-09 07:05] LABS: ALANINE AMINOTRANSFERASE 74 U/L (12-78); ALBUMIN 2.8 G/DL (3.4-5.0); ALBUMIN/GLOBULIN RATIO 0.7 (1.1-1.5); ALKALINE PHOSPHATASE 91 IU/L (46-116); ANION GAP 12 (8-16); ASPARTATE AMINO TRANSFERASE 65 U/L (10-37); BILIRUBIN,TOTAL 0.7 MG/DL (0.1-1.0); BLOOD UREA NITROGEN 20 MG/DL (7-18); BUN/CREATININE RATIO 17.5 (10.0-20.0); CALCIUM 8.6 MG/DL (8.5-10.1); CHLORIDE 99 MMOL/L (99-107); CREATININE 1.14 MG/DL (0.60-1.10); GLUCOSE 95 MG/DL (70-104); MAGNESIUM 1.4 MG/DL (1.5-2.4); PHOSPHORUS 4.1 MG/DL (2.3-4.5); POTASSIUM 3.7 MMOL/L (3.5-5.1); SODIUM 134 MMOL/L (135-145); TOTAL CARBON DIOXIDE 22.9 MMOL/L (24-32); eGFR 64 ML/MIN
--- NOTE | 2023-02-09 08:58 | NUR ---
Case management page: [id number] - Leo Olsen- Patient is leaving in 20mins. can you pls call daughters to make sure the house is still open? VIJAY Alvarenga
[2023-02-09] MEDS: thiamine 100mg tablet PO SCH (09:00)
[2023-02-09] MEDS: folic acid 1mg tablet PO SCH (09:00)
[2023-02-09] MEDS: propranolol 10mg tablet PO SCH (09:00)
[2023-02-09] MEDS: enoxaparin 40mg/0.4ml syringe SUBCUT SCH (09:00)
[2023-02-09] MEDS: multivitamins, therapeutics tablet PO SCH (09:00)
[2023-02-09] MEDS: lansoprazole 15mg solutab NG SCH (09:00)
[2023-02-09] MEDS: levetiracetam 250mg tablet PO SCH (09:00)
--- NOTE | 2023-02-09 09:00 | NUR ---
I have reviewed and agree with interventions, assessments, and documentation by Colette Eldridge LVN.
--- NOTE | 2023-02-09 09:16 | NUR ---
Patient discharged home today. IV removed by RN. Patient belongings were gathered and discharge papers were explained to patient. All questions were answered. Patient alert and orientated. Patient was wheeled downstairs and helped into CAT vehicle.
== END 2023-02-09 09:15 | disposition home or self-care (01) | DRG 208 ==
LOC: ER 16:47 → ED HOLD 19:32 → ICU 2S 20:30 → ORTHO 4S 01-31 15:05
PROVIDERS: ADMIT Internal Medicine Critical Care Medicine; ATTEND Internal Medicine Critical Care Medicine
PROC: 5A1945Z Respiratory Ventilation, 24-96 Consecutive Hours (ICD-10-PCS; principal; 2023-01-28)
PROC: 0BH17EZ Insertion of Endotracheal Airway into Trachea, Via Natural or Artificial Opening (ICD-10-PCS; 2023-01-28)
PROC: 4A00X4Z Measurement of Central Nervous Electrical Activity, External Approach (ICD-10-PCS; 2023-01-29)
PROC: 5A09357 Assistance with Respiratory Ventilation, Less than 24 Consecutive Hours, Continuous Positive Airway Pressure (ICD-10-PCS; 2023-01-30)
PROC: 4A00X4Z Measurement of Central Nervous Electrical Activity, External Approach (ICD-10-PCS; 2023-01-30)
DX: J96.01 Acute respiratory failure with hypoxia (principal); J69.0 Pneumonitis due to inhalation of food and vomit; F10.239 Alcohol dependence with withdrawal, unspecified; E87.3 Alkalosis; D69.6 Thrombocytopenia, unspecified; D75.89 Other specified diseases of blood and blood-forming organs; E83.42 Hypomagnesemia; R73.9 Hyperglycemia, unspecified; E87.6 Hypokalemia; G93.89 Other specified disorders of brain; G40.901 Epilepsy, unspecified, not intractable, with status epilepticus; G31.2 Degeneration of nervous system due to alcohol; R00.0 Tachycardia, unspecified; G89.4 Chronic pain syndrome; I10 Essential (primary) hypertension; K70.9 Alcoholic liver disease, unspecified; Z88.0 Allergy status to penicillin; Z79.899 Other long term (current) drug therapy; W18.39XA Other fall on same level, initial encounter; Y93.89 Activity, other specified; Y99.8 Other external cause status; Z71.41 Alcohol abuse counseling and surveillance of alcoholic; Y92.231 Patient bathroom in hospital as the place of occurrence of the external cause
CPT/HCPCS: 36415; 36600; 70450; 71045; 73030; 80053; 80185; 80305; 80320; 81001; 81003; 82803; 82948; 83036; 83605; 83735; 83880; 84100; 84134; 84145; 84478; 84484; 85007; 85018; 85025; 87040; 87070; 87081; 92508; 92616; 93005; 94002; 94003; 94664; 94668; 94760; 94799; 95720; 97116; 97161; 97530; 99285; A4349; A4615; A4628; A6209; A6213; A6258; A6402; C1758; C9113; G0378; J1100; J1165; J1650; J1815; J1940; J1953; J2060; J2704; J3010; J3411; J3475; J3490

== ENCOUNTER 2024-01-31 12:32 | Emergency (ER) | payer BC, MEDICAID ==
[~2024-01-31] VITALS: Ht 182.9 cm; Wt 77.3 kg
[~2024-01-31 12:32] MED LIST changes: +ALEN70TA37 PO; -CLIN-214 PO; +HYDR-3972 PO; -HYDR-3973 PO; -MULT-933 PO; -OMEP-84 PO; +OMEP20CA16 PO; +PROP10TA10 PO; -THIA100T66 PO; +THIA50TA10 PO; -etomidate 2mg/ml inj. ONE; -rocuronium 10mg/ml inj IV ONE
[2024-01-31] MEDS: succinylcholine 20mg/ml inj IV ONE (12:43)
[2024-01-31] MEDS ORDERED: diltiazem-D5W 125mg/125ml 125 ML IV PRN (12:50)
[2024-01-31] MEDS ORDERED: propofol 1000mg/100ml bottle 100 ML IV SCH ×2 (12:55→12:57)
[2024-01-31] MEDS ORDERED: diltiazem-NS 100mg/100ml 125 ML IV PRN (12:57)
[2024-01-31] MEDS ORDERED: sod chloride 0.9% 10ml flush syringe IV ONE (13:00)
[2024-01-31 13:01] VITALS: BP 140/98; PULSE 147; RESP 18; O2SAT 97
[2024-01-31] MEDS: MIDAZolam 5mg/ml 2ml vial ONE (13:01)
[2024-01-31] MEDS: propofol 1000mg/100ml bottle 100 ML IV ONE (13:03)
[2024-01-31] MEDS: diltiazem 5mg/ml 5ml inj. IV ONE (13:04)
[2024-01-31] MEDS: LORazepam 2 mg/ml vial IV ONE (13:04)
[2024-01-31 13:05] LABS: ABG OXYGEN SATURATION 92.1 % (94-97); ABG PCO2 (T) 32.4 mmHg (35.0-48.0); ABG PH (T) 7.313 (7.340-7.440); ABG PO2 (T) 77.4 mmHg (75.0-100.0); ALLEN'S TEST POSITIVE; FCOHb 0.3 % (0.0-3.9); FHHb 7.8 % (0.0-5.0); FMetHb 0.5 % (0.0-1.5); FO2Hb 91.4 % (94-97); MODE VENT - AC; PATIENT TEMPERATURE 37.3; PEEP 5 cm H2O; RESPIRATORY RATE 18 b/min; TIDAL VOLUME 400 mL; TOTAL HEMOGLOBIN 12.3 G/dl (14.0-17.9)
[2024-01-31] MEDS: levetiracetam inj 1,000 MG in normal saline 100ml IV soln 100 ML IV STA (13:13)
[2024-01-31 13:23] LABS: HEMOGLOBIN 14.4 g/dl (14.0-17.9); MONOCYTES # (AUTO) 0.1 X10'3 (0-0.9); NEUTROPHILS # (AUTO) 1.3 X10'3 (1.8-7.7); WHITE BLOOD COUNT 1.6 X10'3 (4.5-11.0)
[2024-01-31 13:25] LABS: BASOPHILS % (AUTO) 0.3 % (0-1); EOSINOPHILS % (AUTO) 0.2 % (0-6); HEMATOCRIT 41.9 % (42.0-52.0); LYMPHOCYTES # (AUTO) 0.2 X10'3 (1.1-4.8); LYMPHOCYTES % (AUTO) 15.2 % (21-51); MEAN CORPUSCULAR HEMOGLOBIN 36.6 PG (27.0-31.0); MEAN CORPUSCULAR HGB CONC 34.5 g/dL (33.0-36.5); MEAN CORPUSCULAR VOLUME 106.3 FL (78-98); MEAN PLATELET VOLUME 9.5 FL (7.4-10.4); MONOCYTES % (AUTO) 4.3 % (2-12); PLATELET COUNT 119 X10'3 (140-440); RED BLOOD COUNT 3.94 X10'6 (4.70-6.10); RED CELL DISTRIBUTION WIDTH 14.1 % (11.5-14.5)
[2024-01-31 13:26] LABS: INR 1.2 INR; PROTHROMBIN TIME 12.8 SECONDS (9.0-12.0)
[2024-01-31 13:33] LABS: APTT 24 SECONDS (22-32)
[2024-01-31 13:51] LABS: ALANINE AMINOTRANSFERASE 16 U/L (12-78); ALBUMIN 2.1 G/DL (3.4-5.0); ALBUMIN/GLOBULIN RATIO 0.6 (1.1-1.5); ALKALINE PHOSPHATASE 93 IU/L (46-116); ANION GAP 15 (8-16); ASPARTATE AMINO TRANSFERASE 62 U/L (10-37); BILIRUBIN,TOTAL 2.7 MG/DL (0.1-1.0); BLOOD UREA NITROGEN 8 MG/DL (7-18); BUN/CREATININE RATIO 6.8 (10.0-20.0); CALCIUM 7.2 MG/DL (8.5-10.1); CHLORIDE 103 MMOL/L (99-107); CREATINE KINASE 123 U/L (39-308); CREATININE 1.17 MG/DL (0.60-1.10); ETHANOL < 10 MG/DL (<10); GLUCOSE 98 MG/DL (70-104); SODIUM 135 MMOL/L (135-145); TOTAL CARBON DIOXIDE 17.3 MMOL/L (24-32); TOTAL PROTEIN 5.4 G/DL (6.4-8.2); eCRCL 67 ML/MIN; eGFR 62 ML/MIN
[2024-01-31] MEDS: diltiazem-NS 100mg/100ml 100 ML IV PRN (13:51)
[2024-01-31] MEDS: piperacillin/tazo 4.5gm/100ml 100 ML IV ONE (13:52)
[2024-01-31 13:59] LABS: POTASSIUM 2.7 MMOL/L (3.5-5.1)
[2024-01-31 14:01] LABS: NUCLEATED RED BLOOD CELLS 1 /100WBC (0-0); TOTAL CELLS COUNTED 100
[2024-01-31 14:02] LABS: PLATELET ESTIMATE DECREASED
[2024-01-31] MEDS ORDERED: potassium CL 10mEq/100ml bag 100 ML IV SCH (14:05)
[2024-01-31 14:08] VITALS: TEMP 99.3
[2024-01-31] MEDS: magnesium sulf-water 2g/50mL 50 ML IV ONE (14:18)
[2024-01-31 14:51] VITALS: BP 97/56; PULSE 133; RESP 18; O2SAT 100
[2024-01-31] MEDS ORDERED: adenosine 3mg/ml 2ml vial IV ONE (15:00)
== END 2024-01-31 14:57 | disposition short-term general hospital (02) ==
LOC: ER 12:32
DX: I62.9 Nontraumatic intracranial hemorrhage, unspecified (principal); I10 Essential (primary) hypertension; Z88.0 Allergy status to penicillin
CPT/HCPCS: 36415; 36600; 70450; 71045; 80053; 80320; 82550; 82803; 83605; 83735; 85007; 85018; 85025; 85610; 85730; 87040; 87070; 93005; 96365; 96368; 96375; 96376; 99291; J0153; J1953; J2060; J2250; J2543; J2704; J3490; J7030; J7120; 94002; 94760; C1751; J0330